=== PATIENT | male | born 1955 | race Caucasian/White ===

== ENCOUNTER 2016-05-17 20:54 | Emergency (ER) | payer SELFPAY ==
[~2016-05-17] VITALS: Ht 175.3 cm; Wt 82.0 kg
[~2016-05-17 20:54] MED LIST: CIPR0.3S RIGHT EAR; IBUP600 PO; [UNRECOGNIZED DRUG - CODE] EACH EAR
[2016-05-17 21:03] VITALS: BP 128/81; PULSE 118; RESP 18; TEMP 99.6; O2SAT 94
[2016-05-17 22:16] VITALS: BP 128/81; PULSE 118; RESP 18; TEMP 99.6; O2SAT 94
[2016-05-17 22:20] VITALS: RESP 18; O2SAT 94
[2016-05-17] MEDS ORDERED: SODIUM CHLOR 0.9% 1000 ML INJ 1,000 ML IV SCH (22:21)
--- NOTE | 2016-05-17 22:24 | PD ---
HPI Chief Complaint: Abdominal Pain Time Seen by Provider: 22:20 Travel History International Travel<30 days: No Contact w/Intl Traveler<30days: No Traveled to known affect area: No History of Present Illness HPI 60-year-old male with history of diverticulitis, presents to the ER today with abdominal pains which she states is measuring a 10 out of 10, nausea, and bloating that started today. He states that he tried to take magnesium site trach in order to have a bowel movement since he states he has not had a good bowel movement in several days, had a small amount of stool today. He denies any vomiting, fevers, or any other symptoms. He does not know any is exacerbating or alleviating factors. Modifying Factors: None Associated Signs & Symptoms: Nausea, bloating, abdominal pain Risk Factors: Diverticulitis history PFSH Past Medical History Cardiovascular Problems: Yes Coronary Artery Disease: Yes Diminished Hearing: No Immunizations Current: No Past Surgical History Coronary Artery Bypass Graft: Yes Social History Alcohol Use: No Tobacco Use: Yes (1PK) Substance Use: No Allergies-Medications (Allergen,Severity, Reaction): Coded Allergies: Peanut (Verified Allergy, Severe, Anaphylaxis, 05/17/16) Whey Hydrolysates (Verified Allergy, Severe, Anaphylaxis, 05/17/16) Reported Meds & Prescriptions Reported Meds & Active Scripts Active No Active Prescriptions or Reported Medications Review of Systems Except as stated in HPI: all other systems reviewed are Neg Physical Exam Narrative GENERAL: Elderly white male no patient who is currently in mild distress. Awake and oriented 3. SKIN: Focused skin assessment warm/dry. HEAD: Atraumatic. Normocephalic. EYES: Pupils equal and round. No scleral icterus. No injection or drainage. ENT: No nasal bleeding or discharge. Mucous membranes pink and moist. NECK: Trachea midline. No JVD. CARDIOVASCULAR: Regular rate and rhythm. No murmur appreciated. RESPIRATORY: No accessory muscle use. Clear to auscultation. Breath sounds equal bilaterally. GASTROINTESTINAL: Abdomen soft, lower and left lower quadrant tenderness without guarding or rebound, nondistended. Hepatic and splenic margins not palpable. MUSCULOSKELETAL: No obvious deformities. No clubbing. No cyanosis. No edema. NEUROLOGICAL: Awake and alert. No obvious cranial nerve deficits. Motor grossly within normal limits. Normal speech. PSYCHIATRIC: Appropriate mood and affect; insight and judgment normal. Data Data Last Documented VS Vital Signs Date Time Temp Pulse Resp B/P Pulse Ox O2 Delivery O2 Flow Rate FiO2 05/17/16 23:19 102 18 140/83 96 Nasal Cannula 2 05/17/16 22:16 99.6 Orders Complete Blood Count With Diff (05/17/16 22:17) Comprehensive Metabolic Panel (05/17/16 22:17) Lipase (05/17/16 22:17) Urinalysis - C+S If Indicated (05/17/16 22:17) Iv Access Insert/Monitor (05/17/16 22:17) Ecg Monitoring (05/17/16 22:17) Oximetry (05/17/16 22:17) Sodium Chloride 0.9% Flush (Ns Flush) (05/17/16 22:30) Ct Abd/Pel W Iv Contrast(Rout) (05/17/16 22:21) Morphine Inj (Morphine Inj) (05/17/16 22:30) Ondansetron Inj (Zofran Inj) (05/17/16 22:30) Sodium Chlor 0.9% 1000 Ml Inj (Ns 1000 M (05/17/16 22:21) Sodium Chloride 0.9% Flush (Ns Flush) (05/17/16 22:30) Iohexol 350 Inj (Omnipaque 350 Inj) (05/17/16 23:28) Labs Laboratory Tests Test 05/17/16 05/17/16 22:25 22:35 Urine Color YELLOW Urine Turbidity SLIGHT Urine pH 6.5 Urine Specific [place] 1.018 Urine Protein TRACE mg/dL Urine Glucose (UA) NEG mg/dL Urine Ketones NEG mg/dL Urine Occult Blood TRACE Urine Nitrite NEG Urine Bilirubin NEG Urine Leukocyte Esterase TRACE Urine RBC 0-3 /hpf Urine WBC 0-2 /hpf Urine Squamous Epithelial 0-5 /hpf Cells Urine Amorphous Sediment MOD Urine Mucus MOD /lpf Microscopic Urinalysis Comment CULT NOT INDICATED White Blood Count 14.0 TH/MM3 Red Blood Count 4.90 MIL/MM3 Hemoglobin 15.3 GM/DL Hematocrit 46.8 % Mean Corpuscular Volume 95.5 FL Mean Corpuscular Hemoglobin 31.2 PG Mean Corpuscular Hemoglobin 32.6 % Concent Red Cell Distribution Width 14.4 % Platelet Count 310 TH/MM3 Mean Platelet Volume 7.7 FL Neutrophils (%) (Auto) 79.4 % Lymphocytes (%) (Auto) 8.0 % Monocytes (%) (Auto) 9.0 % Eosinophils (%) (Auto) 0.4 % Basophils (%) (Auto) 3.2 % Neutrophils # (Auto) 11.1 TH/MM3 Lymphocytes # (Auto) 1.1 TH/MM3 Monocytes # (Auto) 1.3 TH/MM3 Eosinophils # (Auto) 0.1 TH/MM3 Basophils # (Auto) 0.4 TH/MM3 CBC Comment DIFF FINAL Differential Comment Sodium Level 140 MEQ/L Potassium Level 4.3 MEQ/L Chloride Level 101 MEQ/L Carbon Dioxide Level 28.1 MEQ/L Anion Gap 11 MEQ/L Blood Urea Nitrogen 14 MG/DL Creatinine 1.10 MG/DL Estimat Glomerular Filtration 68 ML/MIN Rate Random Glucose 143 MG/DL Calcium Level 9.6 MG/DL Total Bilirubin 0.6 MG/DL Aspartate Amino Transf 26 U/L (AST/SGOT) Alanine Aminotransferase 32 U/L (ALT/SGPT) Alkaline Phosphatase 155 U/L Total Protein 8.4 GM/DL Albumin 3.8 GM/DL Lipase 117 U/L [facility] Medical Decision Making Medical Screen Exam Complete: Yes Emergency Medical Condition: Yes Medical Record Reviewed: Yes Interpretation(s) Laboratory Tests Test 05/17/16 05/17/16 22:25 22:35 Urine Occult Blood TRACE (NEG) Urine Leukocyte Esterase TRACE (NEG) Urine Mucus MOD /lpf (OCC) White Blood Count 14.0 TH/MM3 (4.0-11.0) Neutrophils (%) (Auto) 79.4 % (16.0-70.0) Lymphocytes (%) (Auto) 8.0 % (9.0-44.0) Monocytes (%) (Auto) 9.0 % (0.0-8.0) Basophils (%) (Auto) 3.2 % (0.0-2.0) Neutrophils # (Auto) 11.1 TH/MM3 (1.8-7.7) Monocytes # (Auto) 1.3 TH/MM3 (0-0.9) Basophils # (Auto) 0.4 TH/MM3 (0-0.2) Estimat Glomerular Filtration 68 ML/MIN (>89) Rate Random Glucose 143 MG/DL (74-106) Alkaline Phosphatase 155 U/L (45-117) Total Protein 8.4 GM/DL (6.4-8.2) Differential Diagnosis Lower abdominal pains, nausea, bloatingdiverticulitis versus obstruction versus colitis Narrative Course Lab work shows leukocytosis and CAT scan shows acute sigmoid diverticulitis with no signs of underlying abscess. At this point, my plan would be to release the patient with antibiotic treatment symptomatically treatment for pain. Follow-up with primary care physician. Return for any worsening in symptoms as necessary. The plan has been discussed with the patient and he states understanding. Diagnosis Primary Impression: Diverticulitis Med/Other Pt SpecificInfo: Prescription(s) given Scripts Ondansetron Odt (Zofran Odt)4 Mg Tab4 Mg SL Q6HR PRN (Nausea/Vomiting) #5 TAB Ref 0 Prov:Paul Huff MD 05/17/16 Metronidazole (Flagyl)500 Mg [id number] Mg PO TID 7 Days Ref 0 Prov:Paul Huff MD 05/17/16 Ciprofloxacin (Cipro)500 Mg [id number] Mg PO BID 7 Days Ref 0 Prov:Paul Huff MD 05/17/16 Ibuprofen (Motrin Ib)200 Mg [id number] Mg PO Q6H PRN (PAIN SCALE 1 TO 10) #30 TAB Ref 0 Prov:Paul Huff MD 05/17/16 Disposition: 01 DISCHARGE HOME Condition: Stable Paul Huff MD May 17, 2016 22:24
[2016-05-17] MEDS ORDERED: MORPHINE SULFATE 4 MG/ML INJ IV PUSH ONE (22:30)
[2016-05-17] MEDS ORDERED: ONDANSETRON HCL 4 MG/2 ML VIAL IVP ONE (22:30)
[2016-05-17] MEDS ORDERED: SODIUM CHLORIDE 0.9% FLUSH 10 ML FLUSH IV FLUSH PRN ×2 (22:30)
[2016-05-17 22:46] LABS: BLOOD, URINE TRACE (NEG); GLUCOSE,URINE NEG (NEG); KETONE, URINE NEG (NEG); NITRITE,URINE NEG (NEG); PH, URINE 6.5 (5.0-8.5)
[2016-05-17 22:51] LABS: URINE COLOR YELLOW (YELLW/STRAW)
[2016-05-17 22:52] LABS: MUCUS URINE MOD /lpf (OCC); SQUAMOUS EPITHELIAL CELL URINE 0-5 /hpf (0-5)
[2016-05-17 22:52] LABS: CHLORIDE 101 MEQ/L (98-107); POTASSIUM 4.3 MEQ/L (3.5-5.1); SODIUM (NA) 140 MEQ/L (136-145)
[2016-05-17 22:53] LABS: RBC, URINE 0-3 /hpf (0-3); WBC, URINE 0-2 /hpf (0-5)
[2016-05-17 22:54] LABS: COMMENT (UR) CULT NOT INDICATED; CULTURE IF INDICATED CULT NOT INDICATED
[2016-05-17 22:56] LABS: ANION GAP 11 MEQ/L (5-15); BICARBONATE 28.1 MEQ/L (21.0-32.0); BLOOD UREA NITROGEN 14 MG/DL (7-18)
[2016-05-17 22:58] LABS: ALT (GPT) 32 U/L (12-78); AST (GOT) 26 U/L (15-37)
[2016-05-17 22:59] LABS: GLOMERULAR FILTRATION RATE 68 ML/MIN (>89)
[2016-05-17 23:00] LABS: TOTAL BILIRUBIN ADULT 0.6 MG/DL (0.2-1.0)
[2016-05-17 23:01] LABS: ALKALINE PHOSPHATASE 155 U/L (45-117)
[2016-05-17 23:08] VITALS: RESP 18; O2SAT 89
[2016-05-17 23:08] LABS: AUTOMATED NEUTROPHIL # 11.1 TH/MM3 (1.8-7.7); BASOPHIL # 0.4 TH/MM3 (0-0.2); BASOPHIL % 3.2 % (0.0-2.0); EOSINOPHIL # 0.1 TH/MM3 (0-0.4); EOSINOPHIL % 0.4 % (0.0-4.0); HEMATOCRIT 46.8 % (39.0-51.0); LYMPHOCYTE # 1.1 TH/MM3 (1.0-4.8); MEAN CELL VOLUME 95.5 FL (80.0-100.0); MEAN CORPUSCULAR HEMOGLOBIN 31.2 PG (27.0-34.0); MEAN CORPUSCULAR HGB CONC 32.6 % (32.0-36.0); NEUT % 79.4 % (16.0-70.0); PLATELET COUNT 310 TH/MM3 (150-450); RED CELL DISTRIBUTION WIDTH 14.4 % (11.6-17.2)
[2016-05-17 23:09] LABS: HEMO FLAGS DIFF FINAL
[2016-05-17 23:19] VITALS: BP 140/83; PULSE 102; RESP 18; O2SAT 96
[2016-05-17] MEDS ORDERED: IOHEXOL 350 MG/ML 10 ML VIAL (for RAD DIAG) IV ONE (23:28)
--- NOTE | 2016-05-17 23:45 | RADHPO ---
EXAM DATE/TIME: 05/17/2016 23:19 [facility] COMPARISON: No previous studies available for comparison. INDICATIONS : Diffuse abdominal pain with nausea. IV CONTRAST: 96 cc Omnipaque 350 (iohexol) IV ORAL CONTRAST: No oral contrast ingested. RADIATION DOSE: 14.96 CTDIvol (mGy) MEDICAL HISTORY : Diverticulitis. Coronary artery disease. SURGICAL HISTORY : CABG ENCOUNTER: Initial ACUITY: 1 day PAIN SCALE: 10/10 LOCATION: Abdomen. TECHNIQUE: Volumetric scanning of the abdomen and pelvis was performed. Using automated exposure control and ad justment of the mA and/or kV according to patient size, radiation dose was kept as low as reasonably achievable to obtain optimal diagnostic quality images. FINDINGS: LOWER LUNGS: The visualized lower lungs are clear. LIVER: Homogeneous density without lesion. There is no dilation of the biliary tree. No calcified gallston es. SPLEEN: Normal size without lesion. PANCREAS: Within normal limits. KIDNEYS: Normal in size and shape. There is no mass, stone or hydronephrosis. ADRENAL GLANDS: Within normal limits. VASCULAR: There is no aortic aneurysm. BOWEL/MESENTERY: There is an acute inflammatory process involving the sigmoid colon. Multiple diverticuli are seen wit hin this region. No perforation, abscess, or obstruction observed. The remaining bowel structures are unremarkable. No free air or free fluid. ABDOMINAL WALL: Within normal limits. RETROPERITONEUM: There is no lymphadenopathy. BLADDER: No wall thickening or mass. REPRODUCTIVE: Within normal limits. INGUINAL: There is no lymphadenopathy or hernia. MUSCULOSKELETAL: Within normal limits for patient age. CONCLUSION: 1. Acute sigmoid diverticulitis. No obstruction, abscess, or perforation. Leonid Gavin Jr., MD on May 17, 2016 at 23:41 Board Certified Radiologist. This report was verified electronically.
[2016-05-17] MEDS ORDERED: MOTR200T4 PO (23:50)
[2016-05-17] MEDS ORDERED: METR-1 PO (23:50)
[2016-05-17] MEDS ORDERED: ZOFR4TAB3 SL (23:50)
[2016-05-17] MEDS ORDERED: CIPR-9 PO (23:50)
[2016-05-18 00:29] VITALS: BP 160/85
== END 2016-05-18 00:31 | disposition home or self-care (01) ==
LOC: PHED 20:54
DX: K57.32 Diverticulitis of large intestine without perforation or abscess without bleeding (principal); D72.829 Elevated white blood cell count, unspecified; R11.0 Nausea; F17.200 Nicotine dependence, unspecified, uncomplicated; Z86.79 Personal history of other diseases of the circulatory system
CPT/HCPCS: 74177; 80053; 81001; 83690; 85025; 96374; 96375; 99284; J2270; J2405; J7030; Q9967

== ENCOUNTER 2016-11-24 01:02 | Inpatient (IN) | payer SELFPAY ==
[~2016-11-24] VITALS: Ht 175.3 cm; Wt 82.4 kg
[2016-11-24] VITALS (10 sets, daily range): BP systolic 120–187; BP diastolic 75–101; PULSE 94–118; RESP 16–19; TEMP 97.8–99.5; O2SAT 92–99
[~2016-11-24 01:02] MED LIST changes: +CIPR-9 PO; -CIPR0.3S RIGHT EAR; -IBUP600 PO; +METR-1 PO; +MOTR200T4 PO; +ZOFR4TAB3 SL; -[UNRECOGNIZED DRUG - CODE] EACH EAR
[2016-11-24] MEDS ORDERED: SODIUM CHLOR 0.9% 1000 ML INJ 1,000 ML IV SCH (01:22)
--- NOTE | 2016-11-24 01:26 | PD ---
HPI . Diverticulitis pain Chief Complaint: GI Complaint Time Seen by Provider: 01:18 Travel History International Travel<30 days: No Contact w/Intl Traveler<30days: No Traveled to known affect area: No History of Present Illness HPI The patient is a 61-year-old male with a history of diverticulitis that states he has the same pain as his previous diverticulitis. His pain is in midline lower quadrant and left lower quadrant. He denies any fever. He does have nausea but no vomiting. He does have occasional diarrhea but this subsided. He denies any blood in the stool. PFSH Past Medical History Cardiovascular Problems: Yes Coronary Artery Disease: Yes Diminished Hearing: No Immunizations Current: Yes Past Surgical History Coronary Artery Bypass Graft: Yes Social History Alcohol Use: No Tobacco Use: Yes (1PK) Substance Use: No Allergies-Medications (Allergen,Severity, Reaction): Coded Allergies: ipratropium (Unverified Allergy, Severe, Anaphylaxis, 11/24/16) protein hydrolysate (Unverified Allergy, Severe, Anaphylaxis, 11/24/16) Reported Meds & Prescriptions Reported Meds & Active Scripts Active Review of Systems Except as stated in HPI: all other systems reviewed are Neg Physical Exam Narrative GENERAL: The patient is alert, oriented 3 in moderate apparent distress with his abdominal pain. His vital signs show blood pressure 187/101 but are otherwise normal. SKIN: Focused skin assessment warm/dry. HEAD: Atraumatic. Normocephalic. EYES: Pupils equal and round. No scleral icterus. No injection or drainage. ENT: No nasal bleeding or discharge. Mucous membranes pink and moist. NECK: Trachea midline. No JVD. CARDIOVASCULAR: Regular rate and rhythm. No murmur appreciated. RESPIRATORY: No accessory muscle use. Clear to auscultation. Breath sounds equal bilaterally. GASTROINTESTINAL: Abdomen soft, with tenderness to direct palpation in the left lower quadrant, nondistended. Hepatic and splenic margins not palpable. No guarding or rebound is present. MUSCULOSKELETAL: No obvious deformities. No clubbing. No cyanosis. No edema. NEUROLOGICAL: Awake and alert. No obvious cranial nerve deficits. Motor grossly within normal limits. Normal speech. PSYCHIATRIC: Appropriate mood and affect; insight and judgment normal. Data Data Last Documented VS Vital Signs Date Time Temp Pulse Resp B/P (MAP) Pulse Ox O2 Delivery O2 Flow Rate FiO2 11/24/16 03:04 101 16 171/93 (119) 92 Nasal Cannula 3.00 11/24/16 01:06 97.8 Orders Orders Complete Blood Count With Diff (11/24/16:) Comprehensive Metabolic Panel (11/24/16) Lipase (11/24/16:) Urinalysis - C+S If Indicated (11/24/16:) Ct Abd/Pel W Iv Contrast(Rout) (11/24/16) Iv Access Insert/Monitor (11/24/16) Ecg Monitoring (11/24/16) Oximetry (11/24/16:22) Morphine Inj (Morphine Inj) (11/24/16 01:30) Ondansetron Inj (Zofran Inj) (11/24/16:30) Sodium Chlor 0.9% 1000 Ml Inj (Ns 1000 M (11/24/16:22) Sodium Chloride 0.9% Flush (Ns Flush) (11/24/16:30) Electrocardiogram (11/24/16:) Iohexol 350 Inj (Omnipaque 350 Inj) (11/24/16 02:16) Morphine Inj (Morphine Inj) (11/24/16 02:45) Labs Laboratory Tests Test 11/24/16 01:27 11/24/16 01:50 White Blood Count 10.7 TH/MM3 Red Blood Count 4.79 MIL/MM3 Hemoglobin 15.3 GM/DL Hematocrit 44.7 % Mean Corpuscular Volume 93.2 FL Mean Corpuscular Hemoglobin 32.0 PG Mean Corpuscular Hemoglobin Concent 34.3 % Red Cell Distribution Width 13.5 % Platelet Count 287 TH/MM3 Mean Platelet Volume 7.6 FL Neutrophils (%) (Auto) 69.8 % Lymphocytes (%) (Auto) 16.3 % Monocytes (%) (Auto) 9.5 % Eosinophils (%) (Auto) 3.1 % Basophils (%) (Auto) 1.3 % Neutrophils # (Auto) 7.6 TH/MM3 Lymphocytes # (Auto) 1.7 TH/MM3 Monocytes # (Auto) 1.0 TH/MM3 Eosinophils # (Auto) 0.3 TH/MM3 Basophils # (Auto) 0.1 TH/MM3 CBC Comment AUTO DIFF Differential Comment AUTO DIFF CONFIRMED Platelet Estimate NORMAL Platelet Morphology Comment NORMAL Red Cell Morphology Comment NORMAL Blood Urea Nitrogen 15 MG/DL Creatinine 1.10 MG/DL Random Glucose 129 MG/DL Total Protein 8.1 GM/DL Albumin 3.5 GM/DL Calcium Level 8.8 MG/DL Alkaline Phosphatase 165 U/L Aspartate Amino Transf (AST/SGOT) 16 U/L Alanine Aminotransferase (ALT/SGPT) 25 U/L Total Bilirubin 0.3 MG/DL Sodium Level 134 MEQ/L Potassium Level 4.2 MEQ/L Chloride Level 99 MEQ/L Carbon Dioxide Level 28.8 MEQ/L Anion Gap 6 MEQ/L Estimat Glomerular Filtration Rate 68 ML/MIN Lipase 180 U/L Urine Color YELLOW Urine Turbidity CLEAR Urine pH 6.5 Urine Specific [place] 1.018 Urine Protein 30 mg/dL Urine Glucose (UA) NEG mg/dL Urine Ketones NEG mg/dL Urine Occult Blood MOD Urine Nitrite NEG Urine Bilirubin NEG Urine Leukocyte Esterase NEG Urine RBC 10-14 /hpf Urine WBC 0-2 /hpf Urine Squamous Epithelial Cells 0-5 /hpf Urine Amorphous Sediment SMALL Urine Mucus FEW /lpf Microscopic Urinalysis Comment CULT NOT INDICATED MDM Medical Decision Making Medical Screen Exam Complete: Yes Emergency Medical Condition: Yes Medical Record Reviewed: Yes Interpretation(s) The CBC is normal. The EKG shows no acute ST elevation or depression and is a sinus rhythm of 88. The complete metabolic profile shows a sodium of 134, glucose of 129, alkaline phosphatase of 165 and GFR of 68 but is otherwise unremarkable. The lipase is normal. The urine shows moderate occult blood, 10- 14 red cells but is otherwise normal and culture is not indicated. The CT scan shows prominent diverticula inflammation involving the sigmoid colon with multiple small collections of extraluminal gas, the largest of which extends inferiorly to contact the dome of the bladder where a concomitant small fluid collection is present with significant bladder wall thickening. There is some air along the left lateral wall of the bladder. Concentric colonic thickening continues into the rectum and extends proximally through much of the descending colon. There is no evidence of free no pneumoperitoneum and no evidence of bowel obstruction. Differential Diagnosis Diverticulitis-uncomplicated, diverticulitis with perforation, diverticulitis with abscess, colitis, gastroenteritis, electrolyte disorder, dehydration, urinary tract infection, anemia Narrative Course The patient has evidence of perforated diverticulitis with abscess formation. Some of this has extended to the lateral wall of the bladder and has caused bladder thickening and evidence of concomitant emphysematous cystitis. The patient is very symptomatic and required 2 doses of morphine. Plan: He'll be admitted to the [facility] service, discussed the patient with Dr. Crouch. Physician Communication Physician Communication I discussed the patient with Dr. Crouch, the patient will be admitted to her. Diagnosis Primary Impression: Diverticulitis of small intestine with complication Additional Impression: Diverticulitis large intestine w/o perforation or abscess w/o bleeding Admitting Information Admitting Physician Requests: Admit Sonny Cullen MD Nov 24, 2016 01:26
[2016-11-24] MEDS ORDERED: ONDANSETRON HCL 4 MG/2 ML VIAL IVP ONE (01:30)
[2016-11-24] MEDS ORDERED: SODIUM CHLORIDE 0.9% FLUSH 10 ML FLUSH IV FLUSH PRN ×2 (01:30→03:15)
[2016-11-24] MEDS ORDERED: MORPHINE SULFATE 4 MG/ML INJ IV PUSH ONE ×2 (01:30→02:45)
[2016-11-24 01:45] LABS: AUTOMATED NEUTROPHIL # 7.6 TH/MM3 (1.8-7.7); BASOPHIL # 0.1 TH/MM3 (0-0.2); BASOPHIL % 1.3 % (0.0-2.0); CHLORIDE 99 MEQ/L (98-107); EOSINOPHIL # 0.3 TH/MM3 (0-0.4); EOSINOPHIL % 3.1 % (0.0-4.0); HEMATOCRIT 44.7 % (39.0-51.0); LYMPH % 16.3 % (9.0-44.0); LYMPHOCYTE # 1.7 TH/MM3 (1.0-4.8); MEAN CELL VOLUME 93.2 FL (80.0-100.0); MEAN CORPUSCULAR HGB CONC 34.3 % (32.0-36.0); MONO % 9.5 % (0.0-8.0); NEUT % 69.8 % (16.0-70.0); PLATELET COUNT 287 TH/MM3 (150-450); POTASSIUM 4.2 MEQ/L (3.5-5.1); RED BLOOD COUNT 4.79 MIL/MM3 (4.50-5.90); RED CELL DISTRIBUTION WIDTH 13.5 % (11.6-17.2); SODIUM (NA) 134 MEQ/L (136-145); WHITE BLOOD COUNT 10.7 TH/MM3 (4.0-11.0)
[2016-11-24 01:49] LABS: ANION GAP 6 MEQ/L (5-15); BICARBONATE 28.8 MEQ/L (21.0-32.0); BLOOD UREA NITROGEN 15 MG/DL (7-18)
[2016-11-24 01:50] LABS: HEMO FLAGS AUTO DIFF
[2016-11-24 01:52] LABS: ALT (GPT) 25 U/L (12-78); AST (GOT) 16 U/L (15-37); GLOMERULAR FILTRATION RATE 68 ML/MIN (>89)
[2016-11-24 01:53] LABS: TOTAL BILIRUBIN ADULT 0.3 MG/DL (0.2-1.0)
[2016-11-24 01:55] LABS: ALKALINE PHOSPHATASE 165 U/L (45-117)
[2016-11-24 01:59] LABS: BLOOD, URINE MOD (NEG); GLUCOSE,URINE NEG (NEG); KETONE, URINE NEG (NEG); NITRITE,URINE NEG (NEG); PH, URINE 6.5 (5.0-8.5)
[2016-11-24 02:12] LABS: URINE COLOR YELLOW (YELLW/STRAW)
[2016-11-24 02:13] LABS: COMMENT (UR) CULT NOT INDICATED; CULTURE IF INDICATED CULT NOT INDICATED; MUCUS URINE FEW /lpf (OCC); SQUAMOUS EPITHELIAL CELL URINE 0-5 /hpf (0-5); WBC, URINE 0-2 /hpf (0-5)
[2016-11-24] MEDS ORDERED: IOHEXOL 350 MG/ML 10 ML VIAL (for RAD DIAG) IVCONTRAST ONE (02:16)
[2016-11-24 02:21] LABS: PLATELET ESTIMATE SMEAR NORMAL (NORMAL); PLATELET MORPHOLOGY NORMAL (NORMAL); SCAN/DIFF AUTO DIFF CONFIRMED
--- NOTE | 2016-11-24 02:54 | RADRPT ---
EXAM DATE/TIME: 11/24/2016 02:09 [facility] COMPARISON: CT ABDOMEN & PELVIS W CONTRAST, May 17, 2016, 23:19. INDICATIONS : Left lower quadrant abdominal pain. IV CONTRAST: 100 cc Omnipaque 350 (iohexol) IV ORAL CONTRAST: No oral contrast ingested. RADIATION DOSE: 13.94 CTDIvol (mGy) MEDICAL HISTORY : Cardiovascular disease. SURGICAL HISTORY : CABG Appendectomy. ENCOUNTER: Initial ACUITY: 3 days PAIN SCALE: 7/10 LOCATION: Left lower quadrant TECHNIQUE: Volumetric scanning of the abdomen and pelvis was performed. Using automated exposure control and ad justment of the mA and/or kV according to patient size, radiation dose was kept as low as reasonably achievable to obtain optimal diagnostic quality images. DICOM format image data is available electro nically for review and comparison. FINDINGS: LOWER LUNGS: The visualized lower lungs are clear. LIVER: Homogeneous density without lesion. There is no dilation of the biliary tree. No calcified gallston es. SPLEEN: Normal size without lesion. PANCREAS: Within normal limits. KIDNEYS: Normal in size and shape. There is no mass, stone or hydronephrosis. ADRENAL GLANDS: Within normal limits. VASCULAR: There is no aortic aneurysm. BOWEL/MESENTERY: There is prominent diverticular inflammation involving the sigmoid colon. There are are multiple smal l collections of extraluminal gas, largest of which extends inferiorly to contact the dome of the dann dder where a concomitant small fluid collection is present associated with significant bladder wall t hickening. There is some air along the left lateral wall of the bladder. Concentric colonic thickenin g continues into the rectum and extends proximally through much of the descending colon. There is no evidence of free pneumoperitoneum. There is no evidence of bowel obstruction. ABDOMINAL WALL: Within normal limits. RETROPERITONEUM: There is no lymphadenopathy. BLADDER: See above REPRODUCTIVE: Dense prostatic calcifications. INGUINAL: There is no lymphadenopathy or hernia. MUSCULOSKELETAL: Within normal limits for patient age. CONCLUSION: Prominent sigmoid diverticulitis with locally contained perforation, multiple small collections of ex traluminal air and concomitant emphysematous cystitis Venancio Turner MD on November 24, 2016 at 2:44 Board Certified Radiologist. This report was verified electronically.
[2016-11-24] MEDS ORDERED: metroNIDAZOLE 500 MG INJ 100 ML IV ONE (03:15)
[2016-11-24] MEDS ORDERED: NALOXONE HCL 0.4 MG/ML AMP IV PUSH PRN (03:15)
[2016-11-24] MEDS ORDERED: LEVOFLOXACIN 750 MG PREMIX INJ 150 ML IV ONE (03:15)
[2016-11-24] MEDS ORDERED: ONDANSETRON HCL 4 MG/2 ML VIAL IVP PRN (03:15)
[2016-11-24] MEDS: PIPERACIL-TAZO 4.5 GM PREMIX 100 ML IV SCH ×4 (03:28→22:28)
[2016-11-24] MEDS: SODIUM CHLOR 0.9% 1000 ML INJ 1,000 ML IV SCH ×2 (03:29→16:45)
[2016-11-24] MEDS: MORPHINE SULFATE 2 MG/ML INJ IV PUSH PRN ×3 (04:08→11:59)
[2016-11-24 07:02] LABS: CHLORIDE 101 MEQ/L (98-107); POTASSIUM 4.3 MEQ/L (3.5-5.1); SODIUM (NA) 133 MEQ/L (136-145)
[2016-11-24 07:06] LABS: ANION GAP 8 MEQ/L (5-15); BICARBONATE 23.7 MEQ/L (21.0-32.0); BLOOD UREA NITROGEN 12 MG/DL (7-18)
[2016-11-24 07:09] LABS: ALT (GPT) 22 U/L (12-78); AST (GOT) 18 U/L (15-37); GLOMERULAR FILTRATION RATE 76 ML/MIN (>89)
[2016-11-24 07:11] LABS: TOTAL BILIRUBIN ADULT 0.4 MG/DL (0.2-1.0)
[2016-11-24 07:12] LABS: ALKALINE PHOSPHATASE 137 U/L (45-117)
[2016-11-24 07:23] LABS: HEMATOCRIT 46.1 % (39.0-51.0); MEAN CELL VOLUME 93.6 FL (80.0-100.0); MEAN CORPUSCULAR HEMOGLOBIN 31.4 PG (27.0-34.0); MEAN CORPUSCULAR HGB CONC 33.6 % (32.0-36.0); PLATELET COUNT 296 TH/MM3 (150-450); RED BLOOD COUNT 4.92 MIL/MM3 (4.50-5.90); RED CELL DISTRIBUTION WIDTH 13.6 % (11.6-17.2); WHITE BLOOD COUNT 13.1 TH/MM3 (4.0-11.0)
[2016-11-24 07:24] LABS: HEMO FLAGS AUTO DIFF
[2016-11-24 08:03] LABS: NEUTROPHIL # MANUAL DIFF 9.6 TH/MM3 (1.8-7.7); POLYS (SEG NEUTROPHILS) 73 % (16-70); WBC DIFF SAMPLE 100
[2016-11-24 08:04] LABS: PLATELET ESTIMATE SMEAR NORMAL (NORMAL); PLATELET MORPHOLOGY NORMAL (NORMAL); SCAN/DIFF FINAL DIFF MANUAL
[2016-11-24] MEDS: SODIUM CHLORIDE 0.9% FLUSH 10 ML FLUSH IV FLUSH SCH ×2 (08:14→22:30)
--- NOTE | 2016-11-24 13:20 | EKG ---
Date Performed: 11/24/2016 Time Performed: 01:32:56 PTAGE: 61 years EKG: Sinus rhythm POSSIBLE LEFT ATRIAL ENLARGEMENT BORDERLINE ECG NO PREVIOUS TRACING DOCTOR: Enrico Ge Interpretating Date/Time 11/24/2016 13:17:39
--- NOTE | 2016-11-24 14:02 | HHI.HP ---
[facility] No Primary Care Physician Admission Diagnosis diverticulitis with abscess formation Diagnoses: (1) Diverticulitis of small intestine with complication Diagnosis: Principal (2) Diverticulitis large intestine w/o perforation or abscess w/o bleeding Diagnosis: Principal (3) Diverticulitis Diagnosis: Principal Travel History International Travel<30 Days: No Contact w/Intl Traveler <30 Da: No Traveled to Known Affected Are: No Sepsis Criteria SIRS Criteria (2 or more): Heart rate over 90, WBC > 50862, < 4000 or > 10% bands Sepsis Criteria (SIRS+source): Infect source susp/known History of Present Illness Mr. Crandall is a 61-year-old male. He's had a graduating left lower abdominal pain with symptoms of decreased appetite. She's had diverticulitis in the past. He reports he has been hospitalized for diverticulitis in the past. Imaging of the abdomen at time of admission reveals severe diverticulitis with evidence of abscess. 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 Urology and surgery have been consulted by the overnight admitting physician. Patient's primary complaint is pain. Currently he is being treated with IV morphine and this is not relieving much of this pain. At baseline he has coronary artery disease hyperlipidemia and a history of CABG. No other reported past medical history. He meets sepsis criteria when I see him today. No other complaints today. Review of Systems Constitutional: DENIES: Diaphoretic episodes, Fatigue, Fever, Weight gain Eyes: DENIES: Blurred vision, Diplopia, Eye inflammation, Eye pain Ears, nose, mouth, throat: DENIES: Tinnitus, Hearing loss, Vertigo, Nasal discharge Respiratory: DENIES: Apneas, Cough, Wheezing, Shortness of breath Cardiovascular: DENIES: Chest pain, Palpitations, Syncope Gastrointestinal: COMPLAINS OF: Abdominal pain, DENIES: Black stools, Bloody stools Musculoskeletal: DENIES: Joint pain, Muscle aches, Stiffness Integumentary: DENIES: Abnormal pigmentation, Nail changes, Pruritus, Rash Hematologic/lymphatic: DENIES: Bruising, Lymphadenopathy Immunologic/allergic: DENIES: Eczema, Urticaria Neurologic: DENIES: Abnormal gait, Headache, Paresthesias Psychiatric: DENIES: Anxiety, Confusion, Hallucinations Past Family Social History Past Medical History CAD Hyperlipidemia Diverticulitis History Past Surgical History CABG Reported Medications Reported Meds & Active Scripts Active Allergies: Coded Allergies: ipratropium (Unverified Allergy, Severe, Anaphylaxis, 11/24/16) protein hydrolysate (Unverified Allergy, Severe, Anaphylaxis, 11/24/16) Active Ordered Medications Administered Medications Medications (Trade) Dose Ordered Sig/Dave Route PRN Reason Start Time Stop Time Status Last Admin Dose Admin Sodium Chloride 1,000 ml @ 100 mls/hr Q10H IV 11/24/16 03:04 11/24/16 03:29 Sodium Chloride (NS Flush) 2 ml BID IV FLUSH 11/24/16 09:00 11/24/16 08:14 Ondansetron HCl (Zofran Inj) 4 mg Q6H PRN IVP NAUSEA OR VOMITING 11/24/16 03:15 11/24/16 11:59 Piperacillin Sod/ Tazobactam Sod 100 ml @ 200 mls/hr Q6H IV 11/24/16 03:00 11/24/16 10:23 Family History Hyperlipidemia, CAD, DM in mother/father DM in Maternal Grandmother Social History Smoking 1ppd No alcohol abuse No illicit drug abuse Physical Exam Vital Signs Vital Signs Date Time Temp Pulse Resp B/P (MAP) Pulse Ox O2 Delivery O2 Flow Rate FiO2 11/24/16 12:00 98.8 118 19 150/90 (110) 94 11/24/16 08:17 111 16 164/94 (117) 96 11/24/16 07:15 16 11/24/16 07:15 105 16 155/92 (113) 99 Room Air 11/24/16 04:40 18 11/24/16 04:13 103 16 174/91 (118) 94 Nasal Cannula 3.00 11/24/16 03:04 101 16 171/93 (119) 92 Nasal Cannula 3.00 11/24/16 03:03 16 11/24/16 02:11 18 11/24/16 01:54 18 97 Room Air 11/24/16 01:06 97.8 94 16 187/101 (129) 97 11/24/16 01:02 97.8 94 16 187/101 (599) 97 Physical Exam GENERAL: NAD, A&Ox3 HEAD: Normocephalic. NECK: Supple, trachea midline. No lymphadenopathy. EYES: No scleral icterus. No injection or drainage. CARDIOVASCULAR: Regular rate and rhythm without murmurs, gallops, or rubs. RESPIRATORY: Breath sounds equal bilaterally. No accessory muscle use. GASTROINTESTINAL: Abdomen soft, nondistended. Tenderness with palpation, no guarding. MUSCULOSKELETAL: No cyanosis, or edema. SKIN: Warm and dry. NEURO: No focal neurological deficitis. Laboratory Laboratory Tests Test 11/24/16 01:27 11/24/16 01:50 11/24/16 06:00 11/24/16 07:11 White Blood Count 10.7 13.1 Red Blood Count 4.79 4.92 Hemoglobin 15.3 15.5 Hematocrit 44.7 46.1 Mean Corpuscular Volume 93.2 93.6 Mean Corpuscular Hemoglobin 32.0 31.4 Mean Corpuscular Hemoglobin Concent 34.3 33.6 Red Cell Distribution Width 13.5 13.6 Platelet Count 287 296 Mean Platelet Volume 7.6 7.5 Neutrophils (%) (Auto) 69.8 Lymphocytes (%) (Auto) 16.3 Monocytes (%) (Auto) 9.5 Eosinophils (%) (Auto) 3.1 Basophils (%) (Auto) 1.3 Neutrophils # (Auto) 7.6 Lymphocytes # (Auto) 1.7 Monocytes # (Auto) 1.0 Eosinophils # (Auto) 0.3 Basophils # (Auto) 0.1 CBC Comment AUTO DIFF AUTO DIFF Differential Comment AUTO DIFF CONFIRMED FINAL DIFF MANUAL Platelet Estimate NORMAL NORMAL Platelet Morphology Comment NORMAL NORMAL Red Cell Morphology Comment NORMAL Blood Urea Nitrogen 15 12 Creatinine 1.10 1.00 Random Glucose 129 151 Total Protein 8.1 7.4 Albumin 3.5 3.2 Calcium Level 8.8 8.3 Alkaline Phosphatase 165 137 Aspartate Amino Transf (AST/SGOT) 16 18 Alanine Aminotransferase (ALT/SGPT) 25 22 Total Bilirubin 0.3 0.4 Sodium Level 134 133 Potassium Level 4.2 4.3 Chloride Level 99 101 Carbon Dioxide Level 28.8 23.7 Anion Gap 6 8 Estimat Glomerular Filtration Rate 68 76 Lipase 180 Urine Color YELLOW Urine Turbidity CLEAR Urine pH 6.5 Urine Specific [place] 1.018 Urine Protein 30 Urine Glucose (UA) NEG Urine Ketones NEG Urine Occult Blood MOD Urine Nitrite NEG Urine Bilirubin NEG Urine Leukocyte Esterase NEG Urine RBC 10-14 Urine WBC 0-2 Urine Squamous Epithelial Cells 0-5 Urine Amorphous Sediment SMALL Urine Mucus FEW Microscopic Urinalysis Comment CULT NOT INDICATED Differential Total Cells Counted 100 Neutrophils % (Manual) 73 Lymphocytes % 20 Monocytes % 7 Neutrophils # (Manual) 9.6 Result Diagram: 11/24/16 0711 11/24/16 0600 Septic Shock Reassessment Heart: Regular rate and rhythm Lungs: Clear Skin: Warm Peripheral Pulses: Bounding Right Radial Bounding Left Radial Bounding Right Posterior Tibial Bounding Left Posterior Tibial Capillary Refill: Brisk Caprini VTE Risk Assessment Caprini VTE Risk Assessment: Mod/High Risk (score >= 2) VTE Pharm Contraindication: High risk for bleeding Caprini Risk Assessment Model Point Value = 1 Point Value = 2 Point Value = 3 Point Value = 5 Age 41-60 Minor surgery BMI > 25 kg/m2 Swollen legs Varicose veins or History of unexplained or recurrent spontaneous Oral contraceptives or hormone replacement Sepsis (< 1 month) Serious lung disease, including pneumonia (< 1 month) Abnormal pulmonary function Acute myocardial infarction Congestive heart failure (< 1 month) History of inflammatory bowel disease Medical patient at bed rest Age 61-74 Arthroscopic surgery Major open surgery (> 45 min) Laparoscopic surgery (> 45 min) Malignancy Confined to bed (> 72 hours) Immobilizing plaster cast Central venous access Age >= 75 History of VTE Family history of VTE Factor V Leiden Prothrombin [id number] Lupus anticoagulant Anticardiolipin antibodies Elevated serum homocysteine Heparin-induced thrombocytopenia Other congenital or acquired thrombophilia Stroke (< 1 month) Elective arthroplasty Hip, pelvis, or leg fracture Acute spinal cord injury (< 1 month) Prophylaxis Regimen Total Risk Factor Score Risk Level Prophylaxis Regimen 0-1 Low Early ambulation 2 Moderate Order ONE of the following: *Sequential Compression Device (SCD) *Heparin 5000 units SQ BID 3-4 Higher Order ONE of the following medications: *Heparin 5000 units SQ TID *Enoxaparin/Lovenox 40 mg SQ daily (WT < 150 kg, CrCl > 30 mL/min) *Enoxaparin/Lovenox 30 mg SQ daily (WT < 150 kg, CrCl > 10-29 mL/min) *Enoxaparin/Lovenox 30 mg SQ BID (WT < 150 kg, CrCl > 30 mL/min) AND/OR *Sequential Compression Device (SCD) 5 or more Highest Order ONE of the following medications: *Heparin 5000 units SQ TID (Preferred with Epidurals) *Enoxaparin/Lovenox 40 mg SQ daily (WT < 150 kg, CrCl > 30 mL/min) *Enoxaparin/Lovenox 30 mg SQ daily (WT < 150 kg, CrCl > 10-29 mL/min) *Enoxaparin/Lovenox 30 mg SQ BID (WT < 150 kg, CrCl > 30 mL/min) AND *Sequential Compression Device (SCD) Assessment and Plan Problem List: (1) Diverticulitis large intestine w/o perforation or abscess w/o bleeding ICD Code: K57.32 - Diverticulitis of large intestine without perforation or abscess without bleeding Status: Acute (2) Diverticulitis of small intestine with complication ICD Code: K57.12 - Diverticulitis of small intestine without perforation or abscess without bleeding Status: Acute (3) Diverticulitis ICD Code: K57.92 - Diverticulitis of intestine, part unspecified, without perforation or abscess without bleeding Status: Acute Assessment and Plan Assessment and plan 61-year-old male admitted secondary to diverticulitis with abscess and possible bladder fistula Sepsis Follow clinically Treatment infection IV hydration Acute diverticulitis Diverticular abscess Possible bladder fistula Continue as needed pain treatments Clear liquid diet Surgery consulted Urology consulted Continue Zosyn IV hydration CAD History of CABG No chest pain Follow clinically Hyperlipidemia Check fasting lipid profile in a.m. Presently on dietary treatments DVT prophylaxis High risk of bleed SCDs Physician Certification 2 Midnight Certification Type: Admission for Inpatient Services Order for Inpatient Services The services are ordered in accordance with Medicare regulations or non- Medicare payer requirements, as applicable. In the case of services not specified as inpatient-only, they are appropriately provided as inpatient services in accordance with the 2-midnight benchmark. Estimated LOS (days): 4 days is the estimated time the patient will need to remain in the hospital, assuming treatment plan goals are met and no additional complications. Post-Hospital Plan: Abdirahman Espino MD Nov 24, 2016 14:02
[2016-11-24] MEDS: HYDROmorphone HCL PF 1 MG/ML VIAL IV PUSH PRN ×2 (15:33→19:15)
--- NOTE | 2016-11-24 17:01 | PD.CONS ---
cc: Gavin Vela MD; Paul Proctor MD HPI Service CONSULTATION NOTE FOR SURGICAL ATTENDING, DR. GAVIN VELA General Surgery Consult Requested By Dr. Crouch Reason for Consult Acute diverticulitis Primary Care Physician No Primary Care Physician History of Present Illness This is a 61-year-old male with a past medical history diverticulitis, coronary artery disease, and hypercholesterolemia. The patient comes in complaining of left lower quadrant abdominal pain 3 days. He has associated decreased appetite and nausea. He has not had any emesis. The patient has 2 similar episodes of the same type symptoms both with a diagnosis of sigmoid diverticulitis. The first episode he was treated in the [facility] emergency department and discharged. Another episode happened in [place] and again was treated with antibiotics and discharged home. This is the third episode of acute sigmoid diverticulitis. The CT abdomen and pelvis shows prominent sigmoid diverticulitis with locally contained perforation and small collection of extraluminal air. The patient has an elevated white blood cell count. A General Surgery consultation has been requested for evaluation of acute diverticulitis. Review of Systems Constitutional: COMPLAINS OF: Fatigue, Change in appetite, DENIES: Chills Endocrine: DENIES: Polydipsia, Polyuria, Polyphagia Eyes: DENIES: Diplopia Ears, nose, mouth, throat: DENIES: Hearing loss Respiratory: DENIES: Cough Cardiovascular: DENIES: Palpitations Gastrointestinal: COMPLAINS OF: Abdominal pain, Nausea, DENIES: Vomiting Genitourinary: DENIES: Urgency Musculoskeletal: DENIES: Muscle aches, Joint Swelling Integumentary: DENIES: Abnormal pigmentation Hematologic/lymphatic: DENIES: Bruising Immunologic/allergic: DENIES: Eczema Neurologic: DENIES: Headache, Localized weakness Psychiatric: DENIES: Mood changes, Depression, Hallucinations Past Family Social History Past Medical History Acute diverticulitis Coronary artery disease Past Surgical History CABG---10 years ago Reported Medications None Allergies: Coded Allergies: ipratropium (Unverified Allergy, Severe, Anaphylaxis, 11/24/16) protein hydrolysate (Unverified Allergy, Severe, Anaphylaxis, 11/24/16) Active Ordered Medications Current Medications Medications (Trade) Dose Ordered Sig/Dave Route Start Time Stop Time Status Last Admin Sodium Chloride 1,000 ml @ 100 mls/hr Q10H IV 11/24/16 03:04 11/24/16 16:45 (NS Flush) 2 ml UNSCH PRN IV FLUSH 11/24/16 03:15 (NS Flush) 2 ml BID IV FLUSH 11/24/16 09:00 11/24/16 08:14 (Zofran Inj) 4 mg Q6H PRN IVP 11/24/16 03:15 11/24/16 11:59 (Narcan Inj) 0.4 mg UNSCH PRN IV PUSH 11/24/16 03:15 Piperacillin Sod/ Tazobactam Sod 100 ml @ 200 mls/hr Q6H IV 11/24/16 03:00 11/24/16 16:45 (Dilaudid Pf Inj) 0.5 mg Q4H PRN IV PUSH 11/24/16 12:30 (Dilaudid Pf Inj) 1 mg Q4H PRN IV PUSH 11/24/16 12:30 11/24/16 15:33 Family History Noncontributory Social History Positive tobacco use--- approximately 1 pack per day Denies EtOH use Denies illicit drug use Physical Exam Vital Signs Vital Signs Date Time Temp Pulse Resp B/P (MAP) Pulse Ox O2 Delivery O2 Flow Rate FiO2 11/24/16 16:00 99.0 101 19 129/84 (99) 92 11/24/16 12:00 98.8 118 19 150/90 (110) 94 11/24/16 08:17 111 16 164/94 (117) 96 11/24/16 07:15 16 11/24/16 07:15 105 16 155/92 (113) 99 Room Air 11/24/16 04:40 18 11/24/16 04:13 103 16 174/91 (118) 94 Nasal Cannula 3.00 11/24/16 03:04 101 16 171/93 (119) 92 Nasal Cannula 3.00 11/24/16 03:03 16 11/24/16 02:11 18 11/24/16 01:54 18 97 Room Air 11/24/16 01:06 97.8 94 16 187/101 (129) 97 11/24/16 01:02 97.8 94 16 187/101 (129) 97 Physical Exam GENERAL: Very pleasant with 61 year old male in mild acute distress resting in bed. SKIN: Warm and dry. HEAD: Atraumatic. Normocephalic. EYES: Pupils equal and round. No scleral icterus. No injection or drainage. ENT: No nasal bleeding or discharge. Mucous membranes pink and moist. NECK: Trachea midline. CARDIOVASCULAR: Regular rate and rhythm. Large well healed sternal incision. RESPIRATORY: No accessory muscle use. Clear to auscultation. Breath sounds equal bilaterally. GASTROINTESTINAL: Abdomen is distended; LLQ tenderness with minimal palpation. No visible scars on abdomen. MUSCULOSKELETAL: Extremities without clubbing, cyanosis, or edema. No obvious deformities. NEUROLOGICAL: Awake and alert. No obvious cranial nerve deficits. Motor grossly within normal limits. Five out of 5 muscle strength in the arms and legs. Normal speech. PSYCHIATRIC: Appropriate mood and affect; insight and judgment normal. Laboratory Laboratory Tests Test 11/24/16 01:27 11/24/16 01:50 11/24/16 06:00 11/24/16 07:11 White Blood Count 10.7 13.1 Red Blood Count 4.79 4.92 Hemoglobin 15.3 15.5 Hematocrit 44.7 46.1 Mean Corpuscular Volume 93.2 93.6 Mean Corpuscular Hemoglobin 32.0 31.4 Mean Corpuscular Hemoglobin Concent 34.3 33.6 Red Cell Distribution Width 13.5 13.6 Platelet Count 287 296 Mean Platelet Volume 7.6 7.5 Neutrophils (%) (Auto) 69.8 Lymphocytes (%) (Auto) 16.3 Monocytes (%) (Auto) 9.5 Eosinophils (%) (Auto) 3.1 Basophils (%) (Auto) 1.3 Neutrophils # (Auto) 7.6 Lymphocytes # (Auto) 1.7 Monocytes # (Auto) 1.0 Eosinophils # (Auto) 0.3 Basophils # (Auto) 0.1 CBC Comment AUTO DIFF AUTO DIFF Differential Comment AUTO DIFF CONFIRMED FINAL DIFF MANUAL Platelet Estimate NORMAL NORMAL Platelet Morphology Comment NORMAL NORMAL Red Cell Morphology Comment NORMAL Blood Urea Nitrogen 15 12 Creatinine 1.10 1.00 Random Glucose 129 151 Total Protein 8.1 7.4 Albumin 3.5 3.2 Calcium Level 8.8 8.3 Alkaline Phosphatase 165 137 Aspartate Amino Transf (AST/SGOT) 16 18 Alanine Aminotransferase (ALT/SGPT) 25 22 Total Bilirubin 0.3 0.4 Sodium Level 134 133 Potassium Level 4.2 4.3 Chloride Level 99 101 Carbon Dioxide Level 28.8 23.7 Anion Gap 6 8 Estimat Glomerular Filtration Rate 68 76 Lipase 180 Urine Color YELLOW Urine Turbidity CLEAR Urine pH 6.5 Urine Specific [place] 1.018 Urine Protein 30 Urine Glucose (UA) NEG Urine Ketones NEG Urine Occult Blood MOD Urine Nitrite NEG Urine Bilirubin NEG Urine Leukocyte Esterase NEG Urine RBC 10-14 Urine WBC 0-2 Urine Squamous Epithelial Cells 0-5 Urine Amorphous Sediment SMALL Urine Mucus FEW Microscopic Urinalysis Comment CULT NOT INDICATED Differential Total Cells Counted 100 Neutrophils % (Manual) 73 Lymphocytes % 20 Monocytes % 7 Neutrophils # (Manual) 9.6 Result Diagram: 11/24/16 0711 11/24/16 0600 Imaging Last 48 hours Impressions Abdomen/Pelvis CT 11/24/16 0122 Signed Impressions: Service Date/Time: Thursday, November 24, 2016 02:09 - CONCLUSION: Prominent sigmoid diverticulitis with locally contained perforation, multiple small collections of extraluminal air and concomitant emphysematous cystitis Venancio Turner MD Assessment and Plan Problem List: (1) Left lower quadrant pain ICD Codes: R10.32 - Left lower quadrant pain Status: Acute (2) Diverticulitis large intestine w/o perforation or abscess w/o bleeding ICD Codes: K57.32 - Diverticulitis of large intestine without perforation or abscess without bleeding Status: Acute (3) Diverticulitis ICD Codes: K57.92 - Diverticulitis of intestine, part unspecified, without perforation or abscess without bleeding Status: Acute (4) Coronary artery disease ICD Codes: I25.10 - Atherosclerotic heart disease of [place] coronary artery without angina pectoris Status: Chronic (5) History of sternectomy ICD Codes: Z98.890 - Other specified postprocedural states Status: Chronic (6) Abnormal CT of the abdomen ICD Codes: R93.5 - Abnormal findings on diagnostic imaging of other abdominal regions, including retroperitoneum (7) Elevated white blood cell count ICD Codes: D72.829 - Elevated white blood cell count, unspecified Assessment and Plan 61 year old male with acute sigmoid diverticulitis -Continue abdominal exams -Continue IVF -Continue Zosyn -Okay for sips of clear liquids; hold any PO intake if becomes nausea/vomits -Will consider CT guided drainage if abscess is large enough -May need surgical operation during this admission---will continue to follow closely -Thank you for this consult; We will continue to follow Discussed Condition With Dr. Dane Crandall Attending Statement NOTE FOR SURGICAL ATTENDING, DR. GAVIN VELA Patient has moderate left lower quadrant discomfort consistent with diverticulitis. I suspect the inflammatory response around the urinary bladder as a result of the diverticulosis diverticulitis and repeated attacks. Plan IV antibiotics for 3 days and then convert to by mouth He will need a outpatient colonoscopy if we can treat him conservatively with planned elective resection in the near future He has apparently had this discussion with other healthcare providers he was well aware of the plan Discussed with Dr. Proctor I agree with above assessment and plan. The exam, history, and the medical decision-making described in the above note were completed with the assistance of the mid-level provider. I reviewed and agree with the findings presented. I attest that I had a [id number] encounter with the patient on the same day, and personally performed and documented my assessment and findings in the medical record. The following services were provided during this hospital visit: Chart data review, vital sign assessments/reviewing monitor data Review of consultations notes if present. Medication orders/review and/or management Ordering and/or reviewing lab tests Ordering and/or interpreting/reviewing x-rays and/or diagnostic studies Care of the patient and discussion of the patient with the care team Documentation time To help prompt me to consider important information that might be impacting today's encounter and assessment, information from prior notes written by myself or my colleagues may have been "brought forward/copy and pasted" into today's note. Problem Qualifiers (1) Coronary artery disease: Gabbi Blair Nov 24, 2016 17:01 Gavin Vela MD Nov 24, 2016 20:20
--- NOTE | 2016-11-24 21:23 | MB ---
cc: PAUL BATISTA MD DATE OF CONSULTATION: 11/24/2016 REASON FOR CONSULTATION: 1. Possible emphysematous cystitis. 2. Urinary retention. HISTORY OF PRESENT ILLNESS: The patient is a 61-year-old male with history of diverticulitis who presented to the ER yesterday evening with complaints of left lower quadrant pain for three days. The pain was associated with nausea and decreased appetite. He has had two similar episodes in the past where he was diagnosed both times with diverticulitis. In the ER the patient had a CT of the abdomen and pelvis without contrast done which showed prominent diverticulosis with locally contained perforation and small air. He also was known to have some small amount of air within the left side of the bladder wall concerning for emphysematous cystitis. Urology was consulted for this finding. In discussion with the patient, the patient has also had a hard time urinating in the last few months. He is getting up three or four times a night, had a very weak stream. He also had occasional dysuria but denied any hematuria. Yesterday on presentation he was unable to urinate. He had a strong urgency but could not start a stream. A Husain catheter was placed which revealed 400 cc of urine and he immediately felt relief. He denies previously seeing a urologist or taking any medication for urinating in the past. Denies history of kidney stones. FAMILY HISTORY: Prostate cancer. No history of urinary tract infections. Denies urolithiasis. Denies flank pain, fevers, chills at this time. REVIEW OF SYSTEMS See HPI. All systems reviewed were negative. PAST MEDICAL HISTORY: 1. Diverticulitis. 2. Coronary artery disease. 3. Hypercholesterolemia. PAST SURGICAL HISTORY: 1. History of CABG. 2. Circumcision. ALLERGIES: NONE. HOME MEDICATIONS: None. SOCIAL HISTORY: Smokes one pack per day. Denies alcohol or illicit drug use. PHYSICAL EXAMINATION: VITAL SIGNS: Temperature 99, pulse 101, respiratory rate 19, blood pressure 129/84, sat 92% on room air. GENERAL: He is alert and oriented x 3. No apparent distress, pleasant, cooperative. Appears stated age. Head: Head is normocephalic, atraumatic. Neck: Supple. Trachea is midline. No JVD. Eyes: No scleral icterus. Extraocular muscles intact. Lungs: Clear to auscultation bilaterally. No rales, rhonchi or wheezing. Heart: Regular rate and rhythm. No murmurs, rubs, or gallops. Abdomen: Soft, with some left lower quadrant tenderness. Mildly distended. No peritoneal signs. Genitourinary: He is circumcised. Testes are descended bilaterally. Normal size and consistency without mass. Rectal: Exam deferred at this time. Extremities: Nontender. No clubbing, cyanosis or edema. Skin: No ulcers or rashes. [employer] and moist. Psych: Normal affect. Neurological: Cranial nerves II-XII intact. Strength 05/05 all for extremities. LABORATORY DATA: White count 13.1, hemoglobin 15.5, hematocrit 46.1, platelet count 296. Sodium 133, potassium 4.3, chloride 101, bicarb 23.7, BUN 12, creatinine 1.0, glucose 151. Urine shows moderate blood. IMAGING STUDIES: CT of the abdomen and pelvis images were reviewed. See radiologist report. The patient has small amount of air on the left side of the bladder, suspicious for emphysematous cystitis. He also has localized perforated diverticulitis. ASSESSMENT AND PLAN: The patient is a 61 year-old male with history of diverticulitis, who presents with left lower quadrant pain, found to have a perforated diverticulitis as well as urinary retention and some possible small amount of air in the bladder wall. Will start the patient on Flomax. Continue Husain catheter for a minimum of five days, then can have a voiding trial, depending on surgery's plans for the perforated diverticulitis. For the swollen area in the bladder, suspicion is low for emphysematous cystitis, as usually it is seen diffusely throughout the entire bladder wall, patient is fairly sick. Suspect this is air from the perforated diverticulitis, and/or possibly suspicion of colovesical fistula. Either way, will continue Husain catheter for now and antibiotics per the primary team. Thank you for the consultation. Paul Batista MD EMF/GIGI /8:05 PM /8:47 PM
[2016-11-24] MEDS: TAMSULOSIN HCL 0.4 MG CAP PO SCH (22:29)
[2016-11-25] VITALS (7 sets, daily range): BP systolic 106–135; BP diastolic 60–90; PULSE 101–114; RESP 18–20; TEMP 98.3–99.8; O2SAT 88–91
[2016-11-25] MEDS: HYDROmorphone HCL PF 1 MG/ML VIAL IV PUSH PRN ×6 (00:09→23:11)
[2016-11-25] MEDS: SODIUM CHLOR 0.9% 1000 ML INJ 1,000 ML IV SCH ×3 (03:56→14:48)
[2016-11-25] MEDS: PIPERACIL-TAZO 4.5 GM PREMIX 100 ML IV SCH ×4 (03:56→22:01)
[2016-11-25 06:19] LABS: AUTOMATED NEUTROPHIL # 12.3 TH/MM3 (1.8-7.7); BASOPHIL # 0.1 TH/MM3 (0-0.2); BASOPHIL % 0.6 % (0.0-2.0); EOSINOPHIL % 0.2 % (0.0-4.0); HEMATOCRIT 40.9 % (39.0-51.0); LYMPH % 6.9 % (9.0-44.0); MEAN CELL VOLUME 94.6 FL (80.0-100.0); MEAN CORPUSCULAR HEMOGLOBIN 31.5 PG (27.0-34.0); MEAN CORPUSCULAR HGB CONC 33.3 % (32.0-36.0); MONO % 4.4 % (0.0-8.0); NEUT % 87.9 % (16.0-70.0); PLATELET COUNT 235 TH/MM3 (150-450); RED BLOOD COUNT 4.33 MIL/MM3 (4.50-5.90); RED CELL DISTRIBUTION WIDTH 14.2 % (11.6-17.2)
[2016-11-25 06:23] LABS: CHLORIDE 100 MEQ/L (98-107); POTASSIUM 3.6 MEQ/L (3.5-5.1); SODIUM (NA) 135 MEQ/L (136-145)
[2016-11-25 06:29] LABS: HEMO FLAGS DIFF FINAL
[2016-11-25 06:30] LABS: ANION GAP 8 MEQ/L (5-15); BICARBONATE 26.9 MEQ/L (21.0-32.0); BLOOD UREA NITROGEN 10 MG/DL (7-18)
[2016-11-25 06:33] LABS: ALT (GPT) 16 U/L (12-78); AST (GOT) 12 U/L (15-37); GLOMERULAR FILTRATION RATE 85 ML/MIN (>89)
[2016-11-25 06:35] LABS: TOTAL BILIRUBIN ADULT 0.6 MG/DL (0.2-1.0)
[2016-11-25 06:36] LABS: ALKALINE PHOSPHATASE 111 U/L (45-117)
[2016-11-25] MEDS: SODIUM CHLORIDE 0.9% FLUSH 10 ML FLUSH IV FLUSH SCH ×2 (09:00→21:00)
[2016-11-25] MEDS: TAMSULOSIN HCL 0.4 MG CAP PO SCH (09:17)
--- NOTE | 2016-11-25 09:17 | HHI.PR ---
cc: Karthik Kwong MD Subjective Subjective Notes PROGRESS NOTE FOR SURGICAL ATTENDING, DR. KARTHIK KWONG doing well feels better less pain feels "air gurgling in his abd" Objective Vitals/I&O Vital Signs Date Time Temp Pulse Resp B/P (MAP) Pulse Ox O2 Delivery O2 Flow Rate FiO2 11/25/16 08:00 98.8 106 18 109/69 (82) 90 11/24/16 07:15 Room Air 11/24/16 04:13 3.00 Labs Vital Signs Date Time Temp Pulse Resp B/P (MAP) Pulse Ox O2 Delivery O2 Flow Rate FiO2 11/25/16 08:00 98.8 106 18 109/69 (82) 90 11/25/16 06:11 16 11/25/16 04:00 99.0 111 18 133/75 (94) 88 11/25/16 00:00 99.2 109 18 135/90 (105) 91 11/24/16 20:00 99.5 108 18 120/75 (90) 92 11/24/16 19:45 16 11/24/16 16:00 99.0 101 19 129/84 (99) 92 11/24/16 12:00 98.8 118 19 150/90 (110) 94 11/26/16 06:59 Intake Total 323 ml Balance 323 ml Laboratory Tests Test 11/25/16 05:20 White Blood Count 14.0 Red Blood Count 4.33 Hemoglobin 13.6 Hematocrit 40.9 Mean Corpuscular Volume 94.6 Mean Corpuscular Hemoglobin 31.5 Mean Corpuscular Hemoglobin Concent 33.3 Red Cell Distribution Width 14.2 Platelet Count 235 Mean Platelet Volume 7.9 Neutrophils (%) (Auto) 87.9 Lymphocytes (%) (Auto) 6.9 Monocytes (%) (Auto) 4.4 Eosinophils (%) (Auto) 0.2 Basophils (%) (Auto) 0.6 Neutrophils # (Auto) 12.3 Lymphocytes # (Auto) 1.0 Monocytes # (Auto) 0.6 Eosinophils # (Auto) 0.0 Basophils # (Auto) 0.1 CBC Comment DIFF FINAL Differential Comment Blood Urea Nitrogen 10 Creatinine 0.91 Random Glucose 125 Total Protein 6.7 Albumin 2.7 Calcium Level 7.9 Alkaline Phosphatase 111 Aspartate Amino Transf (AST/SGOT) 12 Alanine Aminotransferase (ALT/SGPT) 16 Total Bilirubin 0.6 Sodium Level 135 Potassium Level 3.6 Chloride Level 100 Carbon Dioxide Level 26.9 Anion Gap 8 Estimat Glomerular Filtration Rate 85 Radiology Last 48 hours Impressions Abdomen/Pelvis CT 11/24/16 0122 Signed Impressions: Service Date/Time: Thursday, November 24, 2016 02:09 - CONCLUSION: Prominent sigmoid diverticulitis with locally contained perforation, multiple small collections of extraluminal air and concomitant emphysematous cystitis Venancio Turner MD Cardiovascular: Regular Lungs: Clear Abdomen: Other (still llq pain less than yesterday), BS normal Extremities: Perfused Narrative Exam raphael in place good uop A/P Problem List: (1) Left lower quadrant pain ICD Codes: R10.32 - Left lower quadrant pain Status: Acute (2) Diverticulitis large intestine w/o perforation or abscess w/o bleeding ICD Codes: K57.32 - Diverticulitis of large intestine without perforation or abscess without bleeding Status: Acute (3) Diverticulitis ICD Codes: K57.92 - Diverticulitis of intestine, part unspecified, without perforation or abscess without bleeding Status: Acute (4) Coronary artery disease ICD Codes: I25.10 - Atherosclerotic heart disease of [place] coronary artery without angina pectoris Status: Chronic (5) History of sternectomy ICD Codes: Z98.890 - Other specified postprocedural states Status: Chronic (6) Abnormal CT of the abdomen ICD Codes: R93.5 - Abnormal findings on diagnostic imaging of other abdominal regions, including retroperitoneum (7) Elevated white blood cell count ICD Codes: D72.829 - Elevated white blood cell count, unspecified (8) Emphysematous cystitis ICD Codes: N30.80 - Other cystitis without hematuria Status: Acute Attending Statement PROGRESS NOTE FOR SURGICAL ATTENDING, DR. KARTHIK KWONG I attest that I had a [id number] encounter with the patient on the same day, and personally performed and documented my assessment and findings in the medical record. The following services were provided during this hospital visit: Chart data review, vital sign assessments/reviewing monitor data Review of consultations notes if present. Medication orders/review and/or management Ordering and/or reviewing lab tests Ordering and/or interpreting/reviewing x-rays and/or diagnostic studies Care of the patient and discussion of the patient with the care team Documentation time To help prompt me to consider important information that might be impacting today's encounter and assessment, information from prior notes written by myself or my colleagues may have been "brought forward/copy and pasted" into today's note. Problem Qualifiers (1) Coronary artery disease: Karthik Kwong MD Nov 25, 2016 09:17
--- NOTE | 2016-11-25 09:29 | HHI.PR ---
Subjective Remarks Patient has no new complaints. He has been evaluated by urology and by general surgery. Plan for conservative managements without surgical intervention at this point. Antibiotics and monitoring have been recommended by both general surgery and urology. Patient is content with this plan. Objective Vital Signs Date Time Temp Pulse Resp B/P (MAP) Pulse Ox O2 Delivery O2 Flow Rate FiO2 11/25/16 08:00 98.8 106 18 109/69 (82) 90 11/25/16 06:11 16 11/25/16 04:00 99.0 111 18 133/75 (94) 88 11/25/16 00:00 99.2 109 18 135/90 (105) 91 11/24/16 20:00 99.5 108 18 120/75 (90) 92 11/24/16 19:45 16 11/24/16 16:00 99.0 101 19 129/84 (99) 92 11/24/16 12:00 98.8 118 19 150/90 (110) 94 I/O 11/24/16 11/24/16 11/24/16 11/25/16 11/25/16 11/25/16 06:59 14:59 22:59 06:59 14:59 22:59 Intake Total 1350 ml 100 ml 1035 ml 340 ml 323 ml Output Total 270 ml 1400 ml 500 ml Balance 1080 ml 100 ml -365 ml -160 ml 323 ml Intake Oral 240 ml IV Total 1350 ml 100 ml 1035 ml 100 ml 323 ml Output Urine Total 270 ml 1400 ml 500 ml Bladder Scan Volume Amount 400 ml Result Diagram: 11/25/1651911/25/16519 Objective Remarks GENERAL: NAD, A&Ox3 HEAD: Normocephalic. NECK: Supple, trachea midline. No lymphadenopathy. EYES: No scleral icterus. No injection or drainage. CARDIOVASCULAR: Regular rate and rhythm without murmurs, gallops, or rubs. RESPIRATORY: Breath sounds equal bilaterally. No accessory muscle use. GASTROINTESTINAL: Abdomen soft, no distention. Abdominal tenderness without guarding. MUSCULOSKELETAL: No cyanosis, or edema. SKIN: Warm and dry. NEURO: No focal neurological deficitis. A/P Problem List: (1) Emphysematous cystitis ICD Code: N30.80 - Other cystitis without hematuria Status: Acute (2) Abnormal CT of the abdomen ICD Code: R93.5 - Abnormal findings on diagnostic imaging of other abdominal regions, including retroperitoneum (3) Elevated white blood cell count ICD Code: D72.829 - Elevated white blood cell count, unspecified (4) Left lower quadrant pain ICD Code: R10.32 - Left lower quadrant pain Status: Acute Assessment and Plan Assessment and plan 61-year-old male admitted secondary to diverticulitis with abscess and possible bladder fistula. Continue antibiotics. Follow vital signs. Labs reviewed. White blood cell count decreasing. Continue to monitor labs. Labs ordered. Sepsis Resolved. Acute diverticulitis Diverticular abscess Possible bladder fistula Continue as needed pain treatments Clear liquid diet Surgery following Urology following Continue Zosyn IV hydration No surgery planned Continue antibiotic treatments and monitoring CAD History of CABG No chest pain Follow clinically Hyperlipidemia Check fasting lipid profile in a.m. Presently on dietary treatments DVT prophylaxis High risk of bleed SCDs Abdirahman Nina MD Nov 25, 2016 09:29
[2016-11-26] VITALS (7 sets, daily range): BP systolic 112–162; BP diastolic 67–93; PULSE 96–112; RESP 16–21; TEMP 94.2–98.8; O2SAT 87–92
[2016-11-26] MEDS: SODIUM CHLOR 0.9% 1000 ML INJ 1,000 ML IV SCH ×2 (01:59→12:08)
[2016-11-26] MEDS: PIPERACIL-TAZO 4.5 GM PREMIX 100 ML IV SCH ×4 (03:23→21:15)
[2016-11-26] MEDS: HYDROmorphone HCL PF 1 MG/ML VIAL IV PUSH PRN ×5 (03:54→21:21)
[2016-11-26 06:23] LABS: BASOPHIL % 0.2 % (0.0-2.0); EOSINOPHIL # 0.1 TH/MM3 (0-0.4); EOSINOPHIL % 0.4 % (0.0-4.0); HEMATOCRIT 36.8 % (39.0-51.0); HEMO FLAGS DIFF FINAL; LYMPH % 6.8 % (9.0-44.0); LYMPHOCYTE # 0.9 TH/MM3 (1.0-4.8); MEAN CELL VOLUME 92.3 FL (80.0-100.0); MEAN CORPUSCULAR HEMOGLOBIN 32.5 PG (27.0-34.0); MEAN CORPUSCULAR HGB CONC 35.3 % (32.0-36.0); MONO % 5.2 % (0.0-8.0); NEUT % 87.4 % (16.0-70.0); PLATELET COUNT 224 TH/MM3 (150-450); RED BLOOD COUNT 3.99 MIL/MM3 (4.50-5.90); RED CELL DISTRIBUTION WIDTH 13.6 % (11.6-17.2); WHITE BLOOD COUNT 13.7 TH/MM3 (4.0-11.0)
[2016-11-26 06:45] LABS: CHLORIDE 102 MEQ/L (98-107); POTASSIUM 3.7 MEQ/L (3.5-5.1); SODIUM (NA) 136 MEQ/L (136-145)
[2016-11-26 06:49] LABS: ANION GAP 5 MEQ/L (5-15); BICARBONATE 28.8 MEQ/L (21.0-32.0); BLOOD UREA NITROGEN 5 MG/DL (7-18)
[2016-11-26 06:52] LABS: ALT (GPT) 15 U/L (12-78); AST (GOT) 9 U/L (15-37); GLOMERULAR FILTRATION RATE 93 ML/MIN (>89)
[2016-11-26 06:54] LABS: TOTAL BILIRUBIN ADULT 0.8 MG/DL (0.2-1.0)
[2016-11-26 06:55] LABS: ALKALINE PHOSPHATASE 123 U/L (45-117)
[2016-11-26] MEDS: TAMSULOSIN HCL 0.4 MG CAP PO SCH (08:07)
[2016-11-26] MEDS: SODIUM CHLORIDE 0.9% FLUSH 10 ML FLUSH IV FLUSH SCH ×2 (08:08→21:00)
--- NOTE | 2016-11-26 10:01 | HHI.PR ---
Subjective Remarks Improvement in patient's condition. Tachycardia has resolved. No new complaints from the patient. Objective Vital Signs Date Time Temp Pulse Resp B/P (MAP) Pulse Ox O2 Delivery O2 Flow Rate FiO2 11/26/16 08:00 98.3 104 16 112/71 (85) 88 11/26/16 04:24 16 11/26/16 04:00 98.6 107 21 130/71 (90) 88 11/26/16 00:00 94.2 112 18 115/67 (83) 87 11/25/16 20:00 99.2 112 20 115/76 (89) 90 11/25/16 20:00 108 11/25/16 16:00 99.8 114 18 106/60 (75) 90 11/25/16 12:00 98.3 101 18 107/68 (81) 90 I/O 11/25/16 11/25/16 11/25/16 11/26/16 11/26/16 11/26/16 07:00 15:00 23:00 07:00 15:00 23:00 Intake Total 340 ml 633 ml 483 ml 601 ml Output Total 500 ml 250 ml 350 ml Balance -160 ml 383 ml 133 ml 601 ml Intake Oral 240 ml IV Total 100 ml 633 ml 483 ml 601 ml Output Urine Total 500 ml 250 ml 350 ml Result Diagram: 11/26/1652911/26/16529 Objective Remarks GENERAL: NAD, A&Ox3 HEAD: Normocephalic. NECK: Supple, trachea midline. No lymphadenopathy. EYES: No scleral icterus. No injection or drainage. CARDIOVASCULAR: Regular rate and rhythm without murmurs, gallops, or rubs. RESPIRATORY: Breath sounds equal bilaterally. No accessory muscle use. GASTROINTESTINAL: Abdomen soft, no distention. Abdominal tenderness without guarding. MUSCULOSKELETAL: No cyanosis, or edema. SKIN: Warm and dry. NEURO: No focal neurological deficitis. A/P Problem List: (1) Emphysematous cystitis ICD Code: N30.80 - Other cystitis without hematuria Status: Acute (2) Abnormal CT of the abdomen ICD Code: R93.5 - Abnormal findings on diagnostic imaging of other abdominal regions, including retroperitoneum (3) Elevated white blood cell count ICD Code: D72.829 - Elevated white blood cell count, unspecified (4) Left lower quadrant pain ICD Code: R10.32 - Left lower quadrant pain Status: Acute Assessment and Plan Assessment and plan 61-year-old male admitted secondary to diverticulitis with abscess and possible bladder fistula. Continue antibiotics. Follow vital signs. Labs reviewed. White blood cell count decreasing. Continue to monitor labs. Labs ordered. Telemetry are removed. Patient encouraged to ambulate. Sepsis Resolved. Acute diverticulitis Diverticular abscess Possible bladder fistula Continue as needed pain treatments Clear liquid diet Surgery following Urology following Continue Zosyn IV hydration No surgery planned Continue antibiotic treatments and monitoring CAD History of CABG No chest pain Follow clinically Hyperlipidemia Check fasting lipid profile in a.m. Presently on dietary treatments DVT prophylaxis High risk of bleed SCDs Abdirahman Nina MD Nov 26, 2016 10:01
[2016-11-26] MEDS ORDERED: DOCUSATE SODIUM 50 MG/SENNA 8.6 MG TAB PO PRN (14:30)
[2016-11-26] MEDS: BISACODYL 10 MG SUPP RECTAL PRN (15:19)
--- NOTE | 2016-11-26 17:29 | HHI.PR ---
cc: Karthik Kwong MD Subjective Subjective Notes DAILY PROGRESS NOTE FOR SURGICAL ATTENDING, DR. KARTHIK KWONG Feels better Passing flatus Tolerating liquids Objective Vitals/I&O Vital Signs Date Time Temp Pulse Resp B/P (MAP) Pulse Ox O2 Delivery O2 Flow Rate FiO2 11/26/16 16:00 97.2 96 16 145/83 (103) 92 11/24/16 07:15 Room Air 11/24/16 04:13 3.00 Labs Laboratory Tests Test 11/26/16 05:30 White Blood Count 13.7 Red Blood Count 3.99 Hemoglobin 13.0 Hematocrit 36.8 Mean Corpuscular Volume 92.3 Mean Corpuscular Hemoglobin 32.5 Mean Corpuscular Hemoglobin Concent 35.3 Red Cell Distribution Width 13.6 Platelet Count 224 Mean Platelet Volume 7.5 Neutrophils (%) (Auto) 87.4 Lymphocytes (%) (Auto) 6.8 Monocytes (%) (Auto) 5.2 Eosinophils (%) (Auto) 0.4 Basophils (%) (Auto) 0.2 Neutrophils # (Auto) 12.0 Lymphocytes # (Auto) 0.9 Monocytes # (Auto) 0.7 Eosinophils # (Auto) 0.1 Basophils # (Auto) 0.0 CBC Comment DIFF FINAL Differential Comment Blood Urea Nitrogen 5 Creatinine 0.84 Random Glucose 122 Total Protein 6.5 Albumin 2.4 Calcium Level 7.7 Alkaline Phosphatase 123 Aspartate Amino Transf (AST/SGOT) 9 Alanine Aminotransferase (ALT/SGPT) 15 Total Bilirubin 0.8 Sodium Level 136 Potassium Level 3.7 Chloride Level 102 Carbon Dioxide Level 28.8 Anion Gap 5 Estimat Glomerular Filtration Rate 93 Radiology Last 48 hours Impressions Abdomen/Pelvis CT 11/24/16 0122 Signed Impressions: Service Date/Time: Thursday, November 24, 2016 02:09 - CONCLUSION: Prominent sigmoid diverticulitis with locally contained perforation, multiple small collections of extraluminal air and concomitant emphysematous cystitis Venancio Turner MD Cardiovascular: Regular Lungs: Clear Abdomen: Other (mild soreness left lower quadrant somewhat less than previous exam) Extremities: Perfused Narrative Exam raphael in place good uop A/P Problem List: (1) Left lower quadrant pain ICD Codes: R10.32 - Left lower quadrant pain Status: Acute (2) Diverticulitis large intestine w/o perforation or abscess w/o bleeding ICD Codes: K57.32 - Diverticulitis of large intestine without perforation or abscess without bleeding Status: Acute (3) Diverticulitis ICD Codes: K57.92 - Diverticulitis of intestine, part unspecified, without perforation or abscess without bleeding Status: Acute (4) Coronary artery disease ICD Codes: I25.10 - Atherosclerotic heart disease of [place] coronary artery without angina pectoris Status: Chronic (5) History of sternectomy ICD Codes: Z98.890 - Other specified postprocedural states Status: Chronic (6) Abnormal CT of the abdomen ICD Codes: R93.5 - Abnormal findings on diagnostic imaging of other abdominal regions, including retroperitoneum (7) Elevated white blood cell count ICD Codes: D72.829 - Elevated white blood cell count, unspecified (8) Emphysematous cystitis ICD Codes: N30.80 - Other cystitis without hematuria Status: Acute Assessment and Plan 61-year-old gentleman with recurrent diverticulitis improving with IV antibiotics. Continue IV antibiotics at this time Possible increased diet tomorrow depending on medical status He did pass some flatus today and his pain is improved his white count is coming down as well. Attending Statement NOTE FOR SURGICAL ATTENDING, DR. KARTHIK KWONG I attest that I had a [id number] encounter with the patient on the same day, and personally performed and documented my assessment and findings in the medical record. The following services were provided during this hospital visit: Chart data review, vital sign assessments/reviewing monitor data Review of consultations notes if present. Medication orders/review and/or management Ordering and/or reviewing lab tests Ordering and/or interpreting/reviewing x-rays and/or diagnostic studies Care of the patient and discussion of the patient with the care team Documentation time To help prompt me to consider important information that might be impacting today's encounter and assessment, information from prior notes written by myself or my colleagues may have been "brought forward/copy and pasted" into today's note. Problem Qualifiers (1) Coronary artery disease: Karthik Kwong MD Nov 26, 2016 17:29
[2016-11-26] MEDS ORDERED: SIMETHICONE 125 MG CHEWABLE TAB PO ONE (18:15)
[2016-11-27] VITALS: BP 141/90; PULSE 101; RESP 20; TEMP 98.6; O2SAT 90
[2016-11-27] MEDS: SODIUM CHLOR 0.9% 1000 ML INJ 1,000 ML IV SCH ×2 (01:38→11:46)
[2016-11-27] MEDS: HYDROmorphone HCL PF 1 MG/ML VIAL IV PUSH PRN ×5 (01:42→22:12)
[2016-11-27] MEDS: PIPERACIL-TAZO 4.5 GM PREMIX 100 ML IV SCH (03:33)
[2016-11-27 06:40] LABS: BASOPHIL % 0.2 % (0.0-2.0); EOSINOPHIL # 0.1 TH/MM3 (0-0.4); EOSINOPHIL % 0.5 % (0.0-4.0); HEMATOCRIT 38.8 % (39.0-51.0); LYMPH % 10.6 % (9.0-44.0); LYMPHOCYTE # 1.1 TH/MM3 (1.0-4.8); MEAN CELL VOLUME 93.9 FL (80.0-100.0); MEAN CORPUSCULAR HEMOGLOBIN 31.6 PG (27.0-34.0); MEAN CORPUSCULAR HGB CONC 33.7 % (32.0-36.0); MONO % 5.5 % (0.0-8.0); NEUT % 83.2 % (16.0-70.0); PLATELET COUNT 269 TH/MM3 (150-450); RED BLOOD COUNT 4.13 MIL/MM3 (4.50-5.90); RED CELL DISTRIBUTION WIDTH 13.4 % (11.6-17.2); WHITE BLOOD COUNT 10.8 TH/MM3 (4.0-11.0)
[2016-11-27 06:43] LABS: CHLORIDE 101 MEQ/L (98-107); POTASSIUM 3.2 MEQ/L (3.5-5.1); SODIUM (NA) 137 MEQ/L (136-145)
[2016-11-27 06:48] LABS: ANION GAP 7 MEQ/L (5-15); BICARBONATE 29.2 MEQ/L (21.0-32.0)
[2016-11-27 06:49] LABS: BLOOD UREA NITROGEN 5 MG/DL (7-18)
[2016-11-27 06:52] LABS: ALT (GPT) 16 U/L (12-78); AST (GOT) 14 U/L (15-37); GLOMERULAR FILTRATION RATE 117 ML/MIN (>89)
[2016-11-27 06:53] LABS: TOTAL BILIRUBIN ADULT 0.7 MG/DL (0.2-1.0)
[2016-11-27 06:54] LABS: ALKALINE PHOSPHATASE 139 U/L (45-117)
[2016-11-27 07:12] LABS: HEMO FLAGS AUTO DIFF
--- NOTE | 2016-11-27 07:27 | HHI.PR ---
Subjective Subjective Notes DAILY PROGRESS NOTE FOR SURGICAL ATTENDING, DR. KARTHIK VELA Passing gas Less abdominal pain He would like to order something for breakfast Objective Vitals/I&O Vital Signs Date Time Temp Pulse Resp B/P (MAP) Pulse Ox O2 Delivery O2 Flow Rate FiO2 11/27/16 00:00 98.6 101 20 141/90 (107) 90 11/24/16 07:15 Room Air 11/24/16 04:13 3.00 Labs Laboratory Tests Test 11/27/16 05:44 White Blood Count 10.8 Red Blood Count 4.13 Hemoglobin 13.1 Hematocrit 38.8 Mean Corpuscular Volume 93.9 Mean Corpuscular Hemoglobin 31.6 Mean Corpuscular Hemoglobin Concent 33.7 Red Cell Distribution Width 13.4 Platelet Count 269 Mean Platelet Volume 7.9 Neutrophils (%) (Auto) 83.2 Lymphocytes (%) (Auto) 10.6 Monocytes (%) (Auto) 5.5 Eosinophils (%) (Auto) 0.5 Basophils (%) (Auto) 0.2 Neutrophils # (Auto) 9.0 Lymphocytes # (Auto) 1.1 Monocytes # (Auto) 0.6 Eosinophils # (Auto) 0.1 Basophils # (Auto) 0.0 CBC Comment AUTO DIFF Blood Urea Nitrogen 5 Creatinine 0.69 Random Glucose 98 Total Protein 6.9 Albumin 2.4 Calcium Level 8.1 Alkaline Phosphatase 139 Aspartate Amino Transf (AST/SGOT) 14 Alanine Aminotransferase (ALT/SGPT) 16 Total Bilirubin 0.7 Sodium Level 137 Potassium Level 3.2 Chloride Level 101 Carbon Dioxide Level 29.2 Anion Gap 7 Estimat Glomerular Filtration Rate 117 Radiology Last 48 hours Impressions Abdomen/Pelvis CT 11/24/16 0122 Signed Impressions: Service Date/Time: Thursday, November 24, 2016 02:09 - CONCLUSION: Prominent sigmoid diverticulitis with locally contained perforation, multiple small collections of extraluminal air and concomitant emphysematous cystitis Venancio Turner MD Cardiovascular: Regular Abdomen: Non-distended, Other (less tender left lower quadrant) Narrative Exam raphael in place good uop A/P Problem List: (1) Left lower quadrant pain ICD Codes: R10.32 - Left lower quadrant pain Status: Acute (2) Diverticulitis large intestine w/o perforation or abscess w/o bleeding ICD Codes: K57.32 - Diverticulitis of large intestine without perforation or abscess without bleeding Status: Acute (3) Diverticulitis ICD Codes: K57.92 - Diverticulitis of intestine, part unspecified, without perforation or abscess without bleeding Status: Acute (4) Coronary artery disease ICD Codes: I25.10 - Atherosclerotic heart disease of [place] coronary artery without angina pectoris Status: Chronic (5) History of sternectomy ICD Codes: Z98.890 - Other specified postprocedural states Status: Chronic (6) Abnormal CT of the abdomen ICD Codes: R93.5 - Abnormal findings on diagnostic imaging of other abdominal regions, including retroperitoneum (7) Elevated white blood cell count ICD Codes: D72.829 - Elevated white blood cell count, unspecified (8) Emphysematous cystitis ICD Codes: N30.80 - Other cystitis without hematuria Status: Acute Assessment and Plan 61-year-old gentleman with recurrent diverticulitis improving with IV antibiotics. Continue IV antibiotics at this time White count down to 10 He did pass some flatus today and his pain is improved Advance diet Convert antibiotics to by mouth Problem Qualifiers (1) Coronary artery disease: Karthik Vela MD Nov 27, 2016 07:27
[2016-11-27] MEDS ORDERED: ACETAMINOPHEN/HYDROcodone 325 MG/5 MG TAB PO PRN (07:45)
[2016-11-27 07:59] LABS: SCAN/DIFF AUTO DIFF CONFIRMED
[2016-11-27] MEDS: TAMSULOSIN HCL 0.4 MG CAP PO SCH (08:55)
[2016-11-27 09:00] VITALS: BP 148/92; PULSE 90; RESP 14; TEMP 97.7; O2SAT 90
[2016-11-27] MEDS: SODIUM CHLORIDE 0.9% FLUSH 10 ML FLUSH IV FLUSH SCH ×2 (09:06→20:01)
[2016-11-27] MEDS: CIPROFLOXACIN 750 MG TAB PO SCH ×2 (10:20→20:54)
[2016-11-27] MEDS: metroNIDAZOLE 500 MG TAB PO SCH ×2 (11:43→18:05)
[2016-11-27 12:00] VITALS: BP 144/90; PULSE 81; RESP 18; TEMP 96; O2SAT 97
[2016-11-27 16:00] VITALS: BP 131/82; PULSE 87; RESP 18; TEMP 95.9; O2SAT 96
[2016-11-27 19:50] VITALS: O2SAT 94
[2016-11-27 22:15] VITALS: BP 156/77; PULSE 84; RESP 16; TEMP 98.8; O2SAT 94
[2016-11-28] VITALS (15 sets, daily range): BP systolic 93–176; BP diastolic 63–110; PULSE 77–105; RESP 16–33; TEMP 96.6–98.9; O2SAT 93–99
[2016-11-28] MEDS: metroNIDAZOLE 500 MG TAB PO SCH ×4 (01:49→17:49)
[2016-11-28] MEDS: HYDROmorphone HCL PF 1 MG/ML VIAL IV PUSH PRN ×3 (02:30→22:13)
[2016-11-28] MEDS: TAMSULOSIN HCL 0.4 MG CAP PO SCH (09:05)
[2016-11-28] MEDS: SODIUM CHLORIDE 0.9% FLUSH 10 ML FLUSH IV FLUSH SCH ×2 (09:06→22:14)
[2016-11-28] MEDS: SODIUM CHLOR 0.9% 1000 ML INJ 1,000 ML IV SCH ×2 (09:06→17:48)
[2016-11-28] MEDS: CIPROFLOXACIN 750 MG TAB PO SCH ×2 (09:39→22:13)
[2016-11-28] MEDS ORDERED: ENALAPRILAT 2.5 MG/2 ML VIAL IV PUSH ONE (10:00)
[2016-11-28] MEDS ORDERED: ENALAPRILAT 1.25 MG/ML VIAL IV PUSH PRN (10:00)
[2016-11-28] MEDS ORDERED: METOPROLOL TARTRATE 25 MG TAB PO SCH (10:00)
[2016-11-28] MEDS ORDERED: NITROGLYCERIN 0.4 MG SL 25 TABS/BTL SL PRN (10:15)
[2016-11-28] MEDS ORDERED: MORPHINE SULFATE 2 MG/ML INJ IM ONE (10:30)
[2016-11-28] MEDS: LISINOPRIL 10 MG TAB PO SCH (10:59)
--- NOTE | 2016-11-28 11:20 | HHI.PR ---
Subjective Remarks delayed note from 11/27 Patient resting comfortably in bed, he still have abdominal tenderness with palpation but it's tolerable No nausea or vomiting no diarrhea no fever or chills Objective Vitals Vital Signs Date Time Temp Pulse Resp B/P (MAP) Pulse Ox O2 Delivery O2 Flow Rate FiO2 11/28/16 08:00 96.6 88 16 152/87 (108) 95 11/28/16 07:59 95 Nasal Cannula 2.00 11/28/16 04:57 11/28/16 00:29 98.9 90 18 134/72 (92) 95 11/27/16 22:42 18 11/27/16 22:15 98.8 84 16 156/77 (103) 94 11/27/16 19:50 94 Nasal Cannula 2.00 11/27/16 16:00 95.9 87 18 131/82 (98) 96 11/27/16 12:00 96.0 81 18 144/90 (108) 97 I/O 11/27/16 11/27/16 11/27/16 11/28/16 11/28/16 11/28/16 06:59 14:59 22:59 06:59 14:59 22:59 Intake Total 220 ml 1109 ml 1506 ml 800 ml Output Total 1400 ml 1050 ml 975 ml 3400 ml 1600 ml Balance -1180 ml 59 ml 531 ml -2600 ml -1600 ml Intake Oral 120 ml 222 ml 444 ml IV Total 100 ml 887 ml 1062 ml 800 ml Output Urine Total 1400 ml 1050 ml 975 ml 3400 ml 1600 ml # Bowel Movements 0 Result Diagram: 11/27/16 0544 11/27/16 0544 Objective Remarks - GENERAL: This is a well-nourished, well-developed patient, in no apparent distress. SKIN: No rashes, warm and dry HEAD: Atraumatic. Normocephalic. EYES: Pupils equal round and reactive. Extraocular motions intact. No scleral icterus. ENT: Nose without bleeding, or drainage, Airway patent. NECK: Trachea midline. Supple CARDIOVASCULAR: Regular rate and rhythm without murmurs, gallops, or rubs. RESPIRATORY: Fair air entry bilaterally. No wheezes, rales, or rhonchi. GASTROINTESTINAL: Abdomen soft, mild mid abdomen tenderness, nondistended. Positive bowel sounds MUSCULOSKELETAL: Extremities without clubbing, cyanosis, or edema. Pedal pulses appreciated NEUROLOGICAL: Awake and alert. Moves all extremity. Normal speech.no focal neurological deficit A/P Problem List: (1) Diverticulitis large intestine w/o perforation or abscess w/o bleeding ICD Code: K57.32 - Diverticulitis of large intestine without perforation or abscess without bleeding Status: Acute (2) Diverticulitis of small intestine with complication ICD Code: K57.12 - Diverticulitis of small intestine without perforation or abscess without bleeding Status: Acute (3) Diverticulitis ICD Code: K57.92 - Diverticulitis of intestine, part unspecified, without perforation or abscess without bleeding Status: Acute Assessment and Plan 11/27: Continue iv antibiotic, blood pressure increased to 148/92, apply as needed Vasotec and monitor closely A/P: 61-year-old male admitted secondary to diverticulitis with abscess and possible bladder fistula. Continue antibiotics. Follow vital signs. Labs reviewed. White blood cell count decreasing. Continue to monitor labs. Labs ordered. Telemetry are removed. Patient encouraged to ambulate. Sepsis Resolved. Acute diverticulitis Diverticular abscess Possible bladder fistula Continue as needed pain treatments Clear liquid diet Surgery following Urology following Continue Zosyn IV hydration No surgery planned Continue antibiotic treatments and monitoring CAD History of CABG No chest pain Follow clinically Hyperlipidemia Check fasting lipid profile in a.m. Presently on dietary treatments DVT prophylaxis High risk of bleed SCDs Zandra Marie MD Nov 28, 2016 11:19
--- NOTE | 2016-11-28 11:23 | HHI.PR ---
Subjective Remarks I was called by the nurse patient having chest pain with increased blood pressure diastolic 176/110 Came to see the patient he reported tightness in his chest 6 out of 10, no nausea or vomiting, blood pressure Objective Vitals Vital Signs Date Time Temp Pulse Resp B/P (MAP) Pulse Ox O2 Delivery O2 Flow Rate FiO2 11/28/16 08:00 96.6 88 16 152/87 (108) 95 11/28/16 07:59 95 Nasal Cannula 2.00 11/28/16 04:57 11/28/16 00:29 98.9 90 18 134/72 (92) 95 11/27/16 22:42 18 11/27/16 22:15 98.8 84 16 156/77 (103) 94 11/27/16 19:50 94 Nasal Cannula 2.00 11/27/16 16:00 95.9 87 18 131/82 (98) 96 11/27/16 12:00 96.0 81 18 144/90 (108) 97 I/O 11/27/16 11/27/16 11/27/16 11/28/16 11/28/16 11/28/16 06:59 14:59 22:59 06:59 14:59 22:59 Intake Total 220 ml 1109 ml 1506 ml 800 ml Output Total 1400 ml 1050 ml 975 ml 3400 ml 1600 ml Balance -1180 ml 59 ml 531 ml -2600 ml -1600 ml Intake Oral 120 ml 222 ml 444 ml IV Total 100 ml 887 ml 1062 ml 800 ml Output Urine Total 1400 ml 1050 ml 975 ml 3400 ml 1600 ml # Bowel Movements 0 Result Diagram: 11/27/16 0544 11/27/16 0544 Objective Remarks - GENERAL: This is a well-nourished, well-developed patient, in no apparent distress. SKIN: No rashes, warm and dry HEAD: Atraumatic. Normocephalic. EYES: Pupils equal round and reactive. Extraocular motions intact. No scleral icterus. ENT: Nose without bleeding, or drainage, Airway patent. NECK: Trachea midline. Supple CARDIOVASCULAR: Regular rate and rhythm without murmurs, gallops, or rubs. RESPIRATORY: Fair air entry bilaterally. No wheezes, rales, or rhonchi. GASTROINTESTINAL: Abdomen soft, mild mid abdomen tenderness, nondistended. Positive bowel sounds MUSCULOSKELETAL: Extremities without clubbing, cyanosis, or edema. Pedal pulses appreciated NEUROLOGICAL: Awake and alert. Moves all extremity. Normal speech.no focal neurological deficit A/P Problem List: (1) Diverticulitis large intestine w/o perforation or abscess w/o bleeding ICD Code: K57.32 - Diverticulitis of large intestine without perforation or abscess without bleeding Status: Acute (2) Diverticulitis of small intestine with complication ICD Code: K57.12 - Diverticulitis of small intestine without perforation or abscess without bleeding Status: Acute (3) Diverticulitis ICD Code: K57.92 - Diverticulitis of intestine, part unspecified, without perforation or abscess without bleeding Status: Acute Assessment and Plan 11/27: Continue iv antibiotic, blood pressure increased to 148/92, apply as needed Vasotec and monitor closely 11/28: Acute chest pain with Accelerated hypertension 176/110 with heart rate 93 , I will add Lopressorpo and give sublingual nitroglycerin with 1 dose of Vasotec, morphine sulfate and monitor blood pressure closely I discussed with the nurse, UA showing proteinuria may need to add low dose LOUISE inhibitor, cycle cardiac enzyme and EKG stat, aspirin 325 Is cussed with the nurse later on blood pressure improved to 140/80 ADDENDUM: Patient had nausea and one episode of vomiting, his initial troponin increased to 0.9, repeated EKG showing T-wave inversion in precordial leads, will start heparin drip and consult cardiology Addendum: Critical care note I was called around 2:[address] Foreman notifying me about ST elevation on inferior leads on EKG was done at 10:30 this morning I personally never had this EKG, we called STEMI alert and I talked to Dr. Avila the [employer] principal taking STEMI calls, he recommended checking chest pain status and another EKG which we did and it showed normalizing of the ST as well as A. fib, heart rate has been in the 140 but improved later on to 90s, and the patient reported 0 chest pain at this point, all the EKG has been sent to Dr. Avila while he was over the phone. Patient already received 25 mg of Lopressor earlier this morning. Dr. Avila recommended holding on urgent At this point, continue with heparin drip, aspirin , Plavix, transfer to ICU at the [facility], he will look at the patient at the main. He also requested discussing with the surgery team to get clearance for heparin drip and Plavix I called Dr. Catalan and discussed with him he agreed with anticoagulation , and definitely recommended against surgical intervention especially with NH and he graciously stated he will look at the patient when he gets to the C Prior to the patient leaving to the [facility] I Examined and assess the patient prior to leave to the [facility], his lungs were clear however I reduces iv fluid to total 50 cc/h, I consulted the risk management internship in the main and called Dr. Craft, made him aware of the case, he will be in touch with the high school principal for further catheter Critical time 90 minutes A/P: 61-year-old male admitted secondary to diverticulitis with abscess and possible bladder fistula. Continue antibiotics. Follow vital signs. Labs reviewed. White blood cell count decreasing. Continue to monitor labs. Labs ordered. Telemetry are removed. Patient encouraged to ambulate. Sepsis Resolved. Acute diverticulitis Diverticular abscess Possible bladder fistula Continue as needed pain treatments Clear liquid diet Surgery following Urology following Continue Zosyn IV hydration No surgery planned Continue antibiotic treatments and monitoring CAD History of CABG Hyperlipidema DVT prophylaxis High risk of bleed SCDs Zandra Marie MD Nov 28, 2016 11:22
[2016-11-28] MEDS ORDERED: ASPIRIN 325 MG TAB PO ONE (11:30)
[2016-11-28] MEDS ORDERED: CALCIUM CARBONATE 500 MG CHEWABLE TAB PO PRN (13:45)
[2016-11-28] MEDS ORDERED: HEPARIN-D5W 25,000 U/250 ML 250 ML IV PRN (14:30)
--- NOTE | 2016-11-28 14:30 | EKG ---
Date Performed: 11/28/2016 Time Performed: 13:57:53 PTAGE: 61 years EKG: ATRIAL FIBRILLATION WITH RAPID VENTRICULAR RESPONSE Nonspecific ST-T wave changes ABNORMAL ECG Compared to prior electrocardiogram inferior ST elevation is slightly less PREVIOUS TRACING : 11/28/2016 10.39 DOCTOR: Dylon Foreman Interpretating Date/Time 11/28/2016 14:28:38
[2016-11-28 14:43] LABS: HEMATOCRIT 38.4 % (39.0-51.0); MEAN CELL VOLUME 93.2 FL (80.0-100.0); MEAN CORPUSCULAR HEMOGLOBIN 31.3 PG (27.0-34.0); MEAN CORPUSCULAR HGB CONC 33.6 % (32.0-36.0); PLATELET COUNT 338 TH/MM3 (150-450); RED BLOOD COUNT 4.12 MIL/MM3 (4.50-5.90); RED CELL DISTRIBUTION WIDTH 13.5 % (11.6-17.2); REVIEW FLAG FINAL; WHITE BLOOD COUNT 11.1 TH/MM3 (4.0-11.0)
--- NOTE | 2016-11-28 14:44 | EKG ---
Date Performed: 11/28/2016 Time Performed: 10:39:45 PTAGE: 61 years EKG: ATRIAL FIBRILLATION WITH ABERRANT CONDUCTION OR VENTRICULAR PREMATURE COMPLEXES Inferior ST elevation which appears new and is consistent with an inferior ST elevation AR. Compared to prior el ectrocardiogram, atrial fibrillation and inferior ST elevation is now present. [facility] who will be checking into this. PREVIOUS TRACING : 11/24/2016 01.32 DOCTOR: Dylon Foreman Interpretating Date/Time 11/28/2016 14:42:06
[2016-11-28 14:57] LABS: APTT (PATIENT) 31.3 SEC (24.3-30.1); PROTHROMBIN TIME - PATIENT 10.6 SEC (9.8-11.6)
[2016-11-28 15:02] LABS: CREATINE KINASE 110 U/L (39-308)
[2016-11-28 15:14] LABS: CKMB 8.7 NG/ML (0.5-3.6)
--- NOTE | 2016-11-28 16:18 | EKG ---
Date Performed: 11/28/2016 Time Performed: 15:03:11 PTAGE: 61 years EKG: ATRIAL FIBRILLATION WITH RAPID VENTRICULAR RESPONSE WITH ABERRANT CONDUCTION OR VENTRICULAR PREMATURE COMPLEXES NONSPECIFIC ST & T-WAVE ABNORMALITY ABNORMAL RHYTHM ECG Compared to prior electr ocardiogram, no definite changes. PREVIOUS TRACING : 11/28/2016 13.57 DOCTOR: Dylon Foreman Interpretating Date/Time 11/28/2016 16:16:44
--- NOTE | 2016-11-28 16:34 | PD.CONS ---
[facility] Service Critical Care Medicine Consult Requested By Dr. Marie Reason for Consult Elevated troponin Primary Care Physician No Primary Care Physician History of Present Illness This is a 61-year-old male. Date of admission 11/24/2016. Date of consultation 11/28/2016. Past medical history includes coronary artery disease status post CABG 4 years ago in [facility], history of 3 coronary artery stents, atrial fibrillation currently normal sinus rhythm and history of diverticulosis. History of diverticulitis. Patient originally was admitted to [facility] with a three-day history of abdominal pain that was eventually diagnosed as sigmoid diverticulitis with contained perforation. 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 Patient was seen by Dr. Proctor/urology was contained from the perforated diverticulum. Recommended bladder placement 5 days and follow-up as an outpatient follow-up initiate tamsulosin 0.4 mg by mouth daily. Seen in consultation by Dr. Vela. Patient was placed on antibiotics is currently on oral ciprofloxacin and metronidazole. Is currently on normal diet. Currently denies any abdominal pain. At 10:30 today, patient expressed chest pressure 7/10 without radiation to the head neck or shoulder. This lasted about 30 minutes duration. This is relieved with IV morphine. EKG revealed A. fib with RVR with ST elevation in inferior leads II, III and aVF. This is eventually picked up and hospitalist was notified. Patient was placed on a heparin drip and a full dose aspirin. Cardiology was consulted and patient was transferred to [facility] for further evaluation treatment. Doesn't time, patient is currently normal sinus rhythm. EKG shows no ST elevation in the inferior leads. Patient denies chest pain, abdominal pain, nausea, vomiting, headache Review of Systems Constitutional: COMPLAINS OF: Fatigue, Weight loss, DENIES: Fever, Weight gain Endocrine: DENIES: Polydipsia, Polyuria Eyes: DENIES: Blurred vision Ears, nose, mouth, throat: DENIES: Tinnitus Respiratory: DENIES: Apneas Cardiovascular: COMPLAINS OF: Chest pain, DENIES: Palpitations, Claudication Gastrointestinal: DENIES: Abdominal pain, Diarrhea, Nausea, Vomiting Genitourinary: COMPLAINS OF: Urgency Musculoskeletal: DENIES: Joint pain, Back pain, Neck pain Integumentary: DENIES: Abnormal pigmentation Hematologic/lymphatic: DENIES: Bruising Immunologic/allergic: DENIES: Eczema Neurologic: DENIES: Abnormal gait Psychiatric: DENIES: Anxiety, Confusion Past Family Social History Allergies: Coded Allergies: ipratropium (Unverified Allergy, Severe, Anaphylaxis, 11/24/16) protein hydrolysate (Unverified Allergy, Severe, Anaphylaxis, 11/24/16) Past Medical History Coronary artery disease Dyslipidemia History of sigmoid diverticulosis, diverticulitis Atrial fibrillation/paroxysmal currently normal sinus rhythm Snoring Past Surgical History Appendectomy Circumcision CABG 4 Coronary artery stents 3 Reported Medications None Active Ordered Medications Reviewed in EMR Family History Mother from emphysema. Father from atherosclerotic vascular disease Social History 1 pack per day tobacco 40 years. Rare to no alcohol use. Denies illicit drug use. Physical Exam Vital Signs Vital Signs Date Time Temp Pulse Resp B/P (MAP) Pulse Ox O2 Delivery O2 Flow Rate FiO2 11/28/16 12:00 97.0 105 16 93/70 (78) 99 11/28/16 11:25 92 136/83 (100) 93 11/28/16 10:10 90 176/110 (132) 95 11/28/16 08:00 96.6 88 16 152/87 (108) 95 11/28/16 07:59 95 Nasal Cannula 2.00 11/28/16 04:57 11/28/16 00:29 98.9 90 18 134/72 (92) 95 11/27/16 22:42 18 11/27/16 22:15 98.8 84 16 156/77 (103) 94 11/27/16 19:50 94 Nasal Cannula 2.00 Physical Exam GENERAL: 61-year-old male, resting in bed in no acute distress SKIN: Warm and dry. Well perfused HEAD: Atraumatic. Normocephalic. EYES: Pupils equal and round about 3 mm bilaterally and reactive. No scleral icterus. No injection or drainage. ENT: No nasal bleeding or discharge. Mucous membranes pink and moist. NECK: Trachea midline. No JVD. CARDIOVASCULAR: Regular rate and rhythm. S1, S2. No S4. 2/6 murmur systolic left sternal border. Prior midline sternotomy scars noticed RESPIRATORY: No accessory muscle use. Clear to auscultation. Breath sounds equal bilaterally. GASTROINTESTINAL: Abdomen soft, non-tender, nondistended. Hypoactive bowel sounds are appreciated MUSCULOSKELETAL: Extremities without significant peripheral edema. No obvious deformities. NEUROLOGICAL: Awake and alert. No obvious cranial nerve deficits. Motor grossly within normal limits. Five out of 5 muscle strength in the arms and legs. Normal speech. PSYCHIATRIC: Appropriate mood and affect; insight and judgment normal. Laboratory Laboratory Tests Test 11/28/16 10:31 11/28/16 14:25 Total Creatine Kinase 54 110 Troponin I 0.09 0.79 White Blood Count 11.1 Red Blood Count 4.12 Hemoglobin 12.9 Hematocrit 38.4 Mean Corpuscular Volume 93.2 Mean Corpuscular Hemoglobin 31.3 Mean Corpuscular Hemoglobin Concent 33.6 Red Cell Distribution Width 13.5 Platelet Count 338 Mean Platelet Volume 7.5 Prothrombin Time 10.6 Prothromb Time International Ratio 1.0 Activated Partial Thromboplast Time 31.3 Creatine Kinase MB 8.7 Result Diagram: 11/28/16 1425 11/27/16 0544 Imaging Last Impressions Abdomen/Pelvis CT 11/24/16 0122 Signed Impressions: Service Date/Time: Thursday, November 24, 2016 02:09 - CONCLUSION: Prominent sigmoid diverticulitis with locally contained perforation, multiple small collections of extraluminal air and concomitant emphysematous cystitis Venancio Turner MD Assessment and Plan Assessment and Plan Neuro/Psych: Acetaminophen/hydrocodone 5/325 one to 2 tablets every 4 hours as needed for pain Morphine sulfate 2 mg every 4 hours when necessary breakthrough pain CV: Coronary artery disease status post CABG times for 10 years ago in [facility] History of 3 coronary artery stents Dyslipidemia History of A. fib with RVR/paroxysmal currently normal sinus rhythm Elevated troponin with resolved ST elevation inferior leads Troponin currently 0.8. Per cycle every 8 hours 2 Received aspirin 325 mg 1. Schedule for 81 mg daily. Heparin drip initiated. Currently in metoprolol 5 mill grams IV every 6 hours. Consider LOUISE inhibitor or lipid-lowering in a.m. To be evaluated by cardiology/Dr. Avila. Current EKG from [place] shows no ST elevation Lipid panel ordered for a.m. Discussed with Dr. Avila, cardiology. Recommended stat EKG troponin. Keep patient nothing by mouth except for medications. Based on information provided previously will decide whether to proceed with cardiac catheterization tonight versus medical management Resp: Nasal cannula to maintain saturations greater than or equal to 92% Incentive spirometry while awake Chest x-ray pending GI: Sigmoid diverticulitis - perforation CT abdomen/pelvis 11/24 revealed sigmoid diverticulitis/perforation with extension air 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 Evaluated by Dr. Vela general surgery. Currently on ciprofloxacin 750 mg by mouth twice a day and metronidazole 500 mg every 6 hours Currently on heart healthy diet Pantoprazole for GI prophylaxis Docusate sodium/senna for bowel regimen Discussed with Dr. Milton, frickertron checker for general surgery. Stated that patient is at low risk for bleeding at the present time. No prior history of lower GI bleed. : Emphysematous bladder? Evaluated by Dr. Proctor /urology for possible length sinus bladder. Please note currently playing. He was started on tamsulosin 0.4 mg by mouth daily CT findings likely extension from contained perforation and not affecting the bladder. Endo: Sliding-scale insulin if indicated to maintain euglycemia Check TSH Renal: Creatinine currently within normal limits Monitor urine output Accurate I's and O's Heme: Leukocytosis Normocytic anemia Monitor CBC daily. Follow trends Currently on heparin drip ID: Sigmoid diverticulitis Continue ciprofloxacin 750 mg by mouth twice a day and metronidazole 500 mg by mouth every 6 hours per general surgery's recommendations FEN: Hypokalemia Replace electrolytes as clinically indicated MSK: PT evaluate and treat Access - Utilize peripheral IV. Central line if indicated Prophylaxis - GI - pantoprazole - DVT - SCD/heparin drip 30 minutes critical care time Code Status Full code Discussed Condition With Patient. Care plan discussed and all questions answered. Peterson Walters MD Nov 28, 2016 16:34
[2016-11-28] MEDS ORDERED: MISCELLANEOUS NURSING INFORMATION XX SCH (16:45)
[2016-11-28] MEDS ORDERED: CHLORHEXIDINE GLUCONATE 2 % 1 PACK (2 CLOTHS) TOP PRN (16:45)
[2016-11-28] MEDS ORDERED: RESP: ALBUTEROL 2.5 MG/3 ML NEB (PRN) INH (16:45)
[2016-11-28] MEDS ORDERED: POTASSIUM CHLOR 20 MEQ PREMIX 100 ML IV PRN (17:00)
[2016-11-28] MEDS ORDERED: MAGNESIUM OXIDE 400 MG TAB PO PRN (17:00)
[2016-11-28] MEDS ORDERED: SODIUM PHOSPHATE INJ 30 MMOL in SODIUM CHLOR 0.9% 250 ML INJ 240 ML IV PRN (17:00)
[2016-11-28] MEDS ORDERED: POTASSIUM PHOSPHATE INJ 30 MMOL in SODIUM CHLOR 0.9% 250 ML INJ 250 ML IV PRN (17:00)
[2016-11-28] MEDS ORDERED: POTASSIUM CHLORIDE 25 MEQ EFFERVESCENT TAB PO PRN (17:00)
[2016-11-28] MEDS ORDERED: MAGNESIUM SULFATE INJ 2 GM in SODIUM CHLORIDE 0.9% INJ 96 ML IV PRN (17:00)
[2016-11-28] MEDS ORDERED: MAGNESIUM SULFATE INJ 4 GM in SODIUM CHLORIDE 0.9% INJ 92 ML IV PRN (17:00)
[2016-11-28] MEDS ORDERED: POTASSIUM CHLOR 40 MEQ PREMIX 100 ML IV PRN ×2 (17:00)
[2016-11-28] MEDS ORDERED: POTASSIUM PHOSPHATE MONOBASIC 500 MG TAB PO/TUBE PRN (17:00)
--- NOTE | 2016-11-28 17:22 | RADRPT ---
EXAM DATE/TIME: 11/28/2016 17:00 [place] COMPARISON: No previous studies available for comparison. INDICATIONS : Chest pain. MEDICAL HISTORY : Cardiovascular disease. SURGICAL HISTORY : CABG. Appendectomy. ENCOUNTER: Subsequent ACUITY: 4 - 6 days PAIN SCORE: 2/10 LOCATION: Bilateral chest FINDINGS: Focal airspace disease characteristic of atelectasis is seen in the right mid lung. Lungs are otherwi se clear. Median sternotomy wires from prior surgery noted. Heart is normal in size. Osseous structures are int act. CONCLUSION: Right midlung airspace disease characteristic of atelectasis otherwise no evidence of acute process. Heron Garrett MD on November 28, 2016 at 17:20 Board Certified Radiologist. This report was verified electronically.
[2016-11-28] MEDS: METOPROLOL TARTRATE 5 MG/5 ML VIAL IV PUSH SCH ×2 (17:49→22:12)
[2016-11-28 18:26] LABS: POTASSIUM 3.1 MEQ/L (3.5-5.1)
[2016-11-28] MEDS ORDERED: POTASSIUM CHLORIDE 20 MEQ CONTROLLED RELEASE TAB PO ONE (18:45)
--- NOTE | 2016-11-28 18:49 | EKG ---
Date Performed: 11/28/2016 Time Performed: 17:22:18 PTAGE: 61 years EKG: Probable ectopic atrial rhythm OCCASIONAL SUPRAVENTRICULAR PREMATURE COMPLEXES MODERATE INT RAVENTRICULAR CONDUCTION DELAY NONSPECIFIC T-WAVE ABNORMALITY ABNORMAL ECG Compared to prior EKG, pro bable ectopic atriall rhythm has replaceed atrial fibrillation. PREVIOUS TRACING : 11/28/2016 15.03 DOCTOR: Dylon Foreman Interpretating Date/Time 11/28/2016 18:49:06
[2016-11-28] MEDS ORDERED: HEPARIN SODIUM - IV 10,000 UNITS/10 ML VIAL IV PUSH PRN ×2 (20:15)
[2016-11-29] VITALS (38 sets, daily range): BP systolic 113–177; BP diastolic 57–95; PULSE 89–112; RESP 14–42; TEMP 98.1–98.6; O2SAT 86–100
[2016-11-29 00:48] LABS: HDL CHOLESTEROL 29.2 MG/DL (40.0-60.0); LDL CHOLESTEROL 130 MG/DL (0-99)
[2016-11-29] MEDS: metroNIDAZOLE 500 MG TAB PO SCH ×4 (00:50→17:55)
--- NOTE | 2016-11-29 01:12 | HHI.PR ---
Subjective Subjective Notes late entry note from 11/28/16 patient feels better no CP currently transferred to [facility] for STEMI Objective Vitals/I&O Vital Signs Date Time Temp Pulse Resp B/P (MAP) Pulse Ox O2 Delivery O2 Flow Rate FiO2 11/28/16 23:00 85 25 140/83 (102) 93 11/28/16 20:31 Nasal Cannula 2.00 11/28/16 20:00 98.3 Labs Laboratory Tests Test 11/28/16 10:31 11/28/16 14:25 11/28/16 16:14 11/28/16 17:24 Total Creatine Kinase 54 110 Troponin I 0.09 0.79 6.44 White Blood Count 11.1 Red Blood Count 4.12 Hemoglobin 12.9 Hematocrit 38.4 Mean Corpuscular Volume 93.2 Mean Corpuscular Hemoglobin 31.3 Mean Corpuscular Hemoglobin Concent 33.6 Red Cell Distribution Width 13.5 Platelet Count 338 Mean Platelet Volume 7.5 Prothrombin Time 10.6 Prothromb Time International Ratio 1.0 Activated Partial Thromboplast Time 31.3 Creatine Kinase MB 8.7 Nasal Screen MRSA (PCR) MRSA NOT DETECTED Blood Urea Nitrogen 7 Creatinine 0.67 Random Glucose 128 Calcium Level 8.4 Phosphorus Level 2.5 Magnesium Level 2.0 Sodium Level 136 Potassium Level 3.1 Chloride Level 101 Carbon Dioxide Level 27.0 Anion Gap 8 Estimat Glomerular Filtration Rate 121 Test 11/28/16 20:49 11/28/16 23:29 Activated Partial Thromboplast Time 31.0 Triglycerides Level 152 Cholesterol Level 190 LDL Cholesterol 130 HDL Cholesterol 29.2 Cholesterol/HDL Ratio 6.50 Thyroid Stimulating Hormone 3rd Gen 5.330 Radiology Last 48 hours Impressions Abdomen/Pelvis CT 11/24/16 0122 Signed Impressions: Service Date/Time: Thursday, November 24, 2016 02:09 - CONCLUSION: Prominent sigmoid diverticulitis with locally contained perforation, multiple small collections of extraluminal air and concomitant emphysematous cystitis Venancio Turner MD Abdomen: Non-distended, Non-tender A/P Problem List: (1) Left lower quadrant pain ICD Codes: R10.32 - Left lower quadrant pain Status: Acute (2) Diverticulitis large intestine w/o perforation or abscess w/o bleeding ICD Codes: K57.32 - Diverticulitis of large intestine without perforation or abscess without bleeding Status: Acute (3) Diverticulitis ICD Codes: K57.92 - Diverticulitis of intestine, part unspecified, without perforation or abscess without bleeding Status: Acute (4) Coronary artery disease ICD Codes: I25.10 - Atherosclerotic heart disease of [place] coronary artery without angina pectoris Status: Chronic (5) History of sternectomy ICD Codes: Z98.890 - Other specified postprocedural states Status: Chronic (6) Abnormal CT of the abdomen ICD Codes: R93.5 - Abnormal findings on diagnostic imaging of other abdominal regions, including retroperitoneum (7) Elevated white blood cell count ICD Codes: D72.829 - Elevated white blood cell count, unspecified (8) Emphysematous cystitis ICD Codes: N30.80 - Other cystitis without hematuria Status: Acute Assessment and Plan 61yo male with diverticulitis, improving. CP today, w/u showed STEMI, cards seeing, on Heparin and going for cardiac cath in AM continue ABX, ok for diet will follow Problem Qualifiers (1) Coronary artery disease: Elian Donald MD Nov 29, 2016 01:12
[2016-11-29 02:10] LABS: ALKALINE PHOSPHATASE 160 U/L (45-117); ALT (GPT) 20 U/L (12-78); ANION GAP 7 MEQ/L (5-15); AST (GOT) 99 U/L (15-37); BICARBONATE 28.6 MEQ/L (21.0-32.0); BLOOD UREA NITROGEN 7 MG/DL (7-18); CHLORIDE 99 MEQ/L (98-107); GLOMERULAR FILTRATION RATE 148 ML/MIN (>89); MAGNESIUM 1.9 MG/DL (1.5-2.5); POTASSIUM 3.3 MEQ/L (3.5-5.1); SODIUM (NA) 135 MEQ/L (136-145); TOTAL BILIRUBIN ADULT 0.3 MG/DL (0.2-1.0)
[2016-11-29 02:19] LABS: CREATINE KINASE 968 U/L (39-308)
[2016-11-29] MEDS: HYDROmorphone HCL PF 1 MG/ML VIAL IV PUSH PRN ×5 (02:32→23:01)
[2016-11-29] MEDS: SODIUM CHLOR 0.9% 1000 ML INJ 1,000 ML IV SCH (02:32)
[2016-11-29 03:10] LABS: CKMB 91.1 NG/ML (0.5-3.6)
[2016-11-29 03:58] LABS: APTT (PATIENT) 35.3 SEC (24.3-30.1)
[2016-11-29] MEDS: CHLORHEXIDINE GLUCONATE 2 % 1 PACK (2 CLOTHS) TOP SCH (04:00)
[2016-11-29] MEDS: METOPROLOL TARTRATE 5 MG/5 ML VIAL IV PUSH SCH (05:30)
[2016-11-29 06:51] LABS: AUTOMATED NEUTROPHIL # 9.9 TH/MM3 (1.8-7.7); BASOPHIL % 0.4 % (0.0-2.0); EOSINOPHIL % 0.2 % (0.0-4.0); HEMATOCRIT 38.2 % (39.0-51.0); HEMO FLAGS DIFF FINAL; LYMPH % 9.7 % (9.0-44.0); LYMPHOCYTE # 1.2 TH/MM3 (1.0-4.8); MEAN CORPUSCULAR HEMOGLOBIN 32.6 PG (27.0-34.0); MEAN CORPUSCULAR HGB CONC 34.7 % (32.0-36.0); MONO % 10.6 % (0.0-8.0); NEUT % 79.1 % (16.0-70.0); PLATELET COUNT 327 TH/MM3 (150-450); RED BLOOD COUNT 4.07 MIL/MM3 (4.50-5.90); RED CELL DISTRIBUTION WIDTH 14.1 % (11.6-17.2); WHITE BLOOD COUNT 12.4 TH/MM3 (4.0-11.0)
[2016-11-29] MEDS: TAMSULOSIN HCL 0.4 MG CAP PO SCH (07:58)
[2016-11-29] MEDS: ASPIRIN 81 MG CHEW TAB CHEW SCH (07:58)
[2016-11-29] MEDS: SODIUM CHLORIDE 0.9% FLUSH 10 ML FLUSH IV FLUSH SCH ×2 (08:00→21:35)
[2016-11-29] MEDS: RESP: ALBUTEROL 2.5 MG/3 ML NEB (SCH) INH ×4 (08:30→20:28)
--- NOTE | 2016-11-29 08:47 | HHI.CCPN ---
Subjective Remarks/Hospital Course History of Present Illness This is a 61-year-old male. Date of admission 11/24/2016. Date of consultation 11/28/2016. Past medical history includes coronary artery disease status post CABG 4 years ago in [facility], history of 3 coronary artery stents, atrial fibrillation currently normal sinus rhythm and history of diverticulosis. History of diverticulitis. Patient originally was admitted to [facility] with a three-day history of abdominal pain that was eventually diagnosed as sigmoid diverticulitis with contained perforation. 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 Patient was seen by Dr. Proctor/urology was contained from the perforated diverticulum. Recommended bladder placement 5 days and follow-up as an outpatient follow-up initiate tamsulosin 0.4 mg by mouth daily. Seen in consultation by Dr. Vela. Patient was placed on antibiotics is currently on oral ciprofloxacin and metronidazole. Is currently on normal diet. Currently denies any abdominal pain. At 10:30 today, patient expressed chest pressure 7/10 without radiation to the head neck or shoulder. This lasted about 30 minutes duration. This is relieved with IV morphine. EKG revealed A. fib with RVR with ST elevation in inferior leads II, III and aVF. This is eventually picked up and hospitalist was notified. Patient was placed on a heparin drip and a full dose aspirin. Cardiology was consulted and patient was transferred to [facility] for further evaluation treatment. Doesn't time, patient is currently normal sinus rhythm. EKG shows no ST elevation in the inferior leads. Patient denies chest pain, abdominal pain, nausea, vomiting, headache Subjective: 11/29: Afebrile. The patient had one episode of what is described as "chest pressure' with a VAS pain scale of 3/4, relieved with Dilaudid 1 mg this a.m.. Concurrently the patient was noted to have increasing oxygen requirements currently on facemask at 15 L to maintain an O2 saturation greater than 90%. Chest x-ray pending. Echo currently being performed. The patient remains NPO for pending cardiac catheterization this a.m.. Objective Vital Signs Date Time Temp Pulse Resp B/P (MAP) Pulse Ox O2 Delivery O2 Flow Rate FiO2 11/29/16 08:02 91 Simple Mask 15.00 11/29/16 06:00 90 11/29/16 06:00 26 130/80 (97) 11/29/16 04:00 98.6 Intake and Output 11/29/16 11/29/16 11/30/16 08:00 16:00 00:00 Intake Total 1480 ml Output Total 850 ml Balance 630 ml Result Diagram: 11/29/16 0543 11/28/16 2329 Imaging Last Impressions Abdomen/Pelvis CT 11/24/16 0122 Signed Impressions: Service Date/Time: Thursday, November 24, 2016 02:09 - CONCLUSION: Prominent sigmoid diverticulitis with locally contained perforation, multiple small collections of extraluminal air and concomitant emphysematous cystitis Venancio Turner MD Objective Remarks BP 137/78 Pulse 87 O2 saturation 94% on face mask 15 L GENERAL: 61-year-old male, resting in bed in no acute distress SKIN: Warm and dry. Well perfused HEAD: Atraumatic. Normocephalic. EYES: Pupils equal and round about 3 mm bilaterally and reactive. No scleral icterus. No injection or drainage. ENT: No nasal bleeding or discharge. Mucous membranes pink and moist. NECK: Trachea midline. No JVD. CARDIOVASCULAR: Regular rate and rhythm. S1, S2. No S4. 2/6 murmur systolic left sternal border. Prior midline sternotomy scars noticed RESPIRATORY: No accessory muscle use. Clear to auscultation. Breath sounds equal bilaterally. GASTROINTESTINAL: Abdomen soft, non-tender, nondistended. Hypoactive bowel sounds are appreciated MUSCULOSKELETAL: Extremities without significant peripheral edema. No obvious deformities. NEUROLOGICAL: Awake and alert. No obvious cranial nerve deficits. Motor grossly within normal limits. Five out of 5 muscle strength in the arms and legs. Normal speech. PSYCHIATRIC: Appropriate mood and affect; insight and judgment normal. Procedures 11/29-cardiac catheterization Urinary Catheter: No A/P Assessment and Plan Neuro/Psych: Angina Abdominal pain Acetaminophen/hydrocodone 5/325 one to 2 tablets every 4 hours as needed for pain Morphine sulfate 2 mg every 4 hours when necessary breakthrough pain CV: Coronary artery disease status post CABG times for 10 years ago in [facility] History of 3 coronary artery stents Dyslipidemia History of A. fib with RVR/paroxysmal currently normal sinus rhythm Elevated troponin with resolved ST elevation inferior leads Troponin currently 6.4-> 25.3->28.7 today Received aspirin 325 mg 1. Schedule for 81 mg daily. Heparin drip initiated. Currently in metoprolol 5 mg IV every 6 hours. Consider LOUISE inhibitor or lipid-lowering in a.m. Cardiology following -Dr. Avila.- Cardiac catheterization scheduled 11/29 Current EKG - no ST elevation Lipid panel- LDL [id number], triglycerides 152, alkaline [id number] Keep patient nothing by mouth except for medications or cardiac catheterization today Patient reports previously on diuretics Lasix, discontinued secondary to loss of medical insurance will resume post cardiac catheterization, upon recommendations Resp: Tobacco abuse Respiratory insufficiency Nasal cannula to maintain saturations greater than or equal to 92%, increasing O2 requirements this a.m. 15 L as mask to achieve 93% O2 sat Patient has history of 1 pack a day smoking >30 years, patient counseled on smoking cessation Incentive spirometry while awake Obtain chest x-ray Chest x-ray this a.m. 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 Evaluated by Dr. Vela general surgery. Currently on ciprofloxacin 750 mg by mouth twice a day and metronidazole 500 mg every 6 hours Currently on heart healthy diet Pantoprazole for GI prophylaxis Docusate suppository PRN for bowel regimen : Emphysematous bladder? Evaluated by Dr. Proctor /urology for possible length sinus bladder. Please note currently playing. He was started on tamsulosin 0.4 mg by mouth daily CT findings likely extension from contained perforation and not affecting the bladder. Endo: Sliding-scale insulin if indicated to maintain euglycemia TSH- 5.33 elevated, obtain T3, T4 level Renal: Creatinine currently within normal limits Monitor urine output Accurate I's and O's Heme: Leukocytosis Normocytic anemia Monitor CBC daily. Follow trends Currently on heparin drip ID: Sigmoid diverticulitis Continue ciprofloxacin 750 mg by mouth twice a day and metronidazole 500 mg by mouth every 6 hours per general surgery's recommendations FEN: Hypokalemia Replace electrolytes as clinically indicated IVF Normal saline 0.9 % decrease 75 cc/hour MSK: PT evaluate and treat Access - Utilize peripheral IV. Central line if indicated Prophylaxis - GI - pantoprazole - DVT - SCD/heparin drip This patient remains critically ill with one or more organ systems which are or may become a threat to life. I have spent in excess of 30 minutes discontinuously in the care and management of this patient. This time is exclusive of procedures, and includes, but is not limited to, evaluation of the patient, review of the medical record, discussions with family, consultants, nursing staff, or respiratory therapy, and documentation in the medical record. Physician Marva Jeffery MD Nov 29, 2016 08:47
[2016-11-29] MEDS: LISINOPRIL 10 MG TAB PO SCH (09:00)
[2016-11-29] MEDS: CIPROFLOXACIN 750 MG TAB PO SCH ×2 (09:00→21:34)
--- NOTE | 2016-11-29 09:11 | RADRPT ---
EXAM DATE/TIME: 11/29/2016 08:56 [facility] COMPARISON: CHEST SINGLE AP, November 28, 2016, 17:00. INDICATIONS : Respiratory disease MEDICAL HISTORY : Cardiovascular disease. SURGICAL HISTORY : CABG. Appendectomy. ENCOUNTER: Subsequent ACUITY: 4 - 6 days PAIN SCORE: 0/10 LOCATION: chest FINDINGS: There's been no change in the infiltrate involving the right perihilar area. The left lung remains gr ossly clear. There continues to be a interstitial changes bilaterally. Heart size is stable. No defin ite pleural effusions. There is evidence of previous cardiothoracic surgery. CONCLUSION: No significant change in the nonspecific infiltrate in the right middle lobe. If the infiltrate does not resolve after appropriate medical therapy, recommend a noncontrast CT thorax for further evaluati on. Primitivo Toribio MD on November 29, 2016 at 9:06 Board Certified Radiologist. This report was verified electronically.
--- NOTE | 2016-11-29 10:12 | ECHRPT ---
Indication: Chest pain CONCLUSIONS BP: 130 / 80 HR: 97 Rhythm: Sinus MEASUREMENTS (Male / Female) Normal Values Technical Quality:Technically difficult study 2D ECHO LVOT Diameter 2.0 cm LV Ejection Fraction MOD 4C 46.7 % LV Cardiac Index MOD 4C 1642.9 cm/minm LV Ejection Fraction 4C AL 47.5 % LV Cardiac Index 4C AL 1741.7 cm/minm M-MODE LV Diastolic Diameter MM 6.3 cm 4.2 - 5.9 / 3.9 - 5.3 cm LV Systolic Diameter MM 4.8 cm LV Ejection Fraction MM Teich 46.1 % LV Cardiac Index MM Teich 4400.7 cm/minm IVS Diastolic Thickness MM 1.0 cm 0.6 - 1.0 / 0.6 - 0.9 cm LVPW Diastolic Thickness MM 1.0 cm 0.6 - 1.0 / 0.6 - 0.9 cm LV Relative Wall Thickness MM 0.3 0.24 - 0.42 / 0.22 - 0.42 LV Mass Index MM 130.2 g/m 49 - 115 / 43 - 95 g/m Aortic Root Diameter MM 3.5 cm LA Systolic Diameter MM 4.0 cm LA Ao Ratio MM 1.1 AV Cusp Separation MM 1.9 cm DOPPLER AV Peak Velocity 86.9 cm/s AV Peak Gradient 3.0 mmHg LVOT Peak Velocity 71.6 cm/s LVOT Peak Gradient 2.1 mmHg AV Area Cont Eq pk 2.6 cm MV Area PHT 5.8 cm Mitral E Point Velocity 114.0 cm/s Mitral A Point Velocity 63.2 cm/s Mitral E to A Ratio 1.8 TR Peak Velocity 250.0 cm/s TR Peak Gradient 25.0 mmHg Right Atrial Pressure 10.0 mmHg Pulmonary Artery Systolic Pressu 35.0 mmHg Right Ventricular Systolic Press 35.0 mmHg PV Peak Velocity 81.4 cm/s PV Peak Gradient 2.7 mmHg FINDINGS LEFT VENTRICLE The left ventricular systolic function is mildly reduced with an estimated ejection fraction in the range of 45- 50%. Normal left ventricular size. Wall thickness is normal. Hypokinetic mid-inferior wall motion. Hypokinetic basal inferior wall motion. RIGHT VENTRICLE Normal right ventricular size and systolic function. The right ventricle was not well visualized. LEFT ATRIUM The left atrial size is normal. RIGHT ATRIUM The right atrial size is normal. ATRIAL SEPTUM Normal atrial septal thickness without atrial level shunting by limited color doppler interrogation. The interatrial septum not well visualized. AORTA The aortic root and proximal ascending aorta are normal in size on limited imaging. MITRAL VALVE Structurally normal mitral valve. Trace mitral valve regurgitation AORTIC VALVE The aortic valve is not well visualized. No aortic valve stenosis or regurgitation. TRICUSPID VALVE Structurally normal tricuspid valve. There is trace tricuspid valve regurgitation. The estimated pulmonary arterial pressure is 39 mmHg. PULMONARY VALVE The pulmonary valve is not well visualized. Trivial pulmonary valve regurgitation. VESSELS The inferior vena cava is normal in size. PERICARDIUM No pericardial effusion. Dylon Foreman MD (Electronically Signed) Final Date:29 November 2016 10:10
[2016-11-29] MEDS ORDERED: HEPARIN-NS/PF INJ 1,000 ML ONE (10:40)
[2016-11-29] MEDS ORDERED: MIDAZOLAM HCL 2 MG/2 ML VIAL ONE (10:46)
[2016-11-29] MEDS ORDERED: HEPARIN SODIUM - IV 10,000 UNITS/10 ML VIAL ONE ×2 (11:12→11:43)
[2016-11-29] MEDS ORDERED: FUROSEMIDE 40 MG/4 ML VIAL ONE (11:48)
[2016-11-29] MEDS ORDERED: TICAGRELOR 90 MG TAB PO ONE (12:02)
--- NOTE | 2016-11-29 12:27 | CATHPROC ---
[facility] HIS Report Study Information Study Number Admission Scheduled Start Study Start [id number] Nov 24 2016 3:14AM 11/29/2016 Nov 29 2016 10:36AM [place] [facility] Cardiac Catheterization Admit Source Facility Department Other [facility] - Network Services Project Manager Physician and Clinical Staff Initial Aftab Ferro Greens Keeper Roaslio Davila,SANDI Greens Keeper Maxine Ferraro RN Recorder Loreto Faust,(R) Scrub Dony Livingston RCIS(BS) Procedures Performed Procedure Location (Site) Vessel Name Coronary Angiograms LCA Left Coronary Coronary Angiograms RCA Right Coronary Coronary Angiograms RAMIREZ-LAD Left Coronary Coronary Angiograms SVG-DIAG Left Coronary Coronary Angiograms SVG-OM CIRC Coronary Angiograms SVG-RCA Right Coronary Drug Eluting Inflatio SVG-RCA Right Coronary L Heart Cath PTCA SVG-RCA Right Coronary Wire insertion Fem Art (right) Femoral Art Equipment Time Installer Molding And Trim Description Size Mfg Part Number Used/Scraped [id number] 11:13 [employer] WIRE, FlextripWATER 180CM 180CM Used *[id number] TRANSDUCER, GlobeRanger [id number] 11:05 MARAVILLA MERCHANT * Used W/STOCKCOCK *[id number] *[id number] *[id number] *[id number] ENDOVASCULAR WIRE, SPIDERFX 4.0 X [id number] 11:27 40 X 320CM Used COMPANY 320/190CM *[id number] 11:05 [employer] PACK, CCL CUSTOM * Used *[id number] 11:20 MEDTRONIC BALLOON, 2.0 X 10MM EUPHORA 10MM Used *[id number] 11:39 MEDTRONIC STENT, 3.0 15MM JAYLYN 3.0 15MM Used *[id number] 11:33 [employer] MEDICAL 30 GRADY INDEFLATOR Used *[id number] 11:05 [employer] MEDICAL SHEATH, FR5.5 PRELUDE 11CM FR 5 [id number] Used [id number] 11:21 [employer] MEDICAL SHEATH, FR6.5 PRELUDE 11CM FR 6.5 [id number] Used *[id number] 11:05 [employer] MEDICAL WIRE, 3MMJ .035 180CM 180CM Used *[id number] 11:05 NAMIC MANIFOLD, 4 PORT * Used *[id number] 11:05 NYCOMED OMNIPAQUE, 350 MG, 150ML 150ML [id number] Used 11:18 NYCOMED OMNIPAQUE, 350 MG, 150ML 150ML [id number] Used [id number] 11:05 [employer] MEDICAL BLANKET,WARM AIR CCL * Used *[id number] Equipment Model, Serial, Lot Number and Expiration Data Description Model Number Serial Number Lot Number Expiration Date STENT, 3.0 15MM JAYLYN [id number] 06-04-2018 History: Current Medications Medication Dosage/Unit Route Frequency Last Date/Time Taken Beta Donn ASA History: Allergies Allergy 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 History: Risk Factors Family History of Hypertension Dyslipidemia Previous [place] Previous Heart Failure Premature CAD Yes Yes Yes Yes No Prior Valve Prior PCI Prior PCIDate Prior CABG Prior CABGDate Surgery No Yes 02/15/2011 Yes 02/16/2012 Cerebrovascular Peripheral Artery Chronic Lung On Dialysis Diabetes Disease Disease Disease No No No No No History: Risk Factors Selection Items Current Smoker History: Symptoms/Diagnosis Selection Items Chest pain SOB History: Stress Tests Stress or Imaging Studies Performed No History: Other Current Smoker Method Packs a Day Years Used Pack Years Yes Cigarettes 1 40 40 Labs Hgb (g/dl) Hct (%) RBC (MIL/MM3) WBC (l/cumm) Platelets (thousands) 11.60-17.00 35.00-51.00 4.00-5.90 4.00-11.00 150.00-450.00 12.9 38.4 4.1 11.1 338 Glucose (mg/dl) BUN (mg/dl) Creatinine (mg/dl) BUN:Creatinine (1:x) 74.00-106.00 7.00-18.00 0.50-1.30 10.00-20.00 128 7 0.6 11.7 Na (meq/l) K (meq/l) Cl (meq/l) CO2 (mmol/L) Ca (mg/dl) 136.00-145.00 3.50-5.10 98.00-107.00 21.00-32.00 8.50-10.10 136 3.1 101 27 8.4 PT (sec) PTT (sec) INR (PTT:PT) 9.80-11.60 24.30-30.10 0.90-1.10 10.6 31.3 1 Troponin I (ng/ml) CPK (u/l) CPK-MB (ng/ML) 0.02-0.05 26.00-308.00 0.50-3.60 28.7 110 8.7 Medication Medication Total Dose (Bolus/Oral) Medication Total Dosage/Unit 1% XYLOCAINE 20 mL BRILLINTA 180 mg FENTANYL 25 mcg HEPARIN 43120 units LASIX 20 mg NTG (IC) 150 mcg VERSED 0.5 mg Medications (Bolus/Oral) Medication Time Given Dosage/Unit Administered By Reason 11/29/2016 10:58:00 VERSED 0.5 mg Rosalio Davila AM 0.5 mg VERSED given in lab by Rosalio Davila RN via Peripheral IV. 11/29/2016 10:59:00 FENTANYL 25 mcg Rosalio Davila AM 25 mcg FENTANYL given in lab by Rosalio Davila RN via Peripheral IV. 11/29/2016 11:01:35 1% XYLOCAINE 20 mL Aftab Avila AM 20 mL 1% XYLOCAINE given by Aftab Avila in Right Groin via Subcutaneous. 11/29/2016 11:15:13 HEPARIN 5500 units Maxine Ferraro AM 5500 units HEPARIN given by Maxine Ferraro RN via Peripheral IV. 11/29/2016 11:32:00 HEPARIN 2500 units Rosalio Davila AM 2500 units HEPARIN given in lab by Rosalio Davila RN via Peripheral IV. 11/29/2016 11:46:17 HEPARIN 2500 units Maxine Ferraro AM 2500 units HEPARIN given by Maxine Ferraro RN via Peripheral IV. 11/29/2016 11:49:29 LASIX 20 mg Maxine Ferraro AM 20 mg LASIX given by Maxine Ferraro RN via Peripheral IV. 11/29/2016 11:58:37 NTG (IC) 150 mcg Aftab Avila AM 150 mcg NTG (IC) given in lab by Aftab Avila via Intra-coronary. 11/29/2016 12:01:21 HEPARIN 2000 units Maxine Ferraro 2000 units HEPARIN given in lab by Maxine Ferraro RN via Peripheral IV. 11/29/2016 12:05:42 BRILLINTA 180 mg Maxine Ferraro PM 180 mg BRILLINTA given in lab by Maxine Ferraro, RN in Per mouth via Oral. Medication (Drip) Medication Time Given Dosage/Unit Concentration/Unit Diluent (ml) Solution 11/29/2016 10:36:33 IV Solutions 0 mL (IV) 500 NaCl .9 AM Patient arrived on IV Solutions in Right Forearm via Peripheral IV. Pump/Drip Flow = 20 ml/hr using N aCl .9. Initial Case Assessment Circulatory - Right Pulses Dorsalis Pedis Femoral 2 2 Scale (0,1,2,3,4,d) Circulatory - Left Pulses Dorsalis Pedis Femoral 1 1 Scale (0,1,2,3,4,d) Circulatory - Lower Extremities Color Lower Right Color Lower Left Normal Normal Final Case Assessment Cardiovascular HR Rhythm NIBP Chest Pain 100 REG 132/87 0 Edema Present Skin color Skin None Normal Warm Circulatory - Right Pulses Dorsalis Pedis Femoral 2 2 Scale (0,1,2,3,4,d) Circulatory - Left Pulses Dorsalis Pedis Femoral 1 1 Scale (0,1,2,3,4,d) Circulatory - Lower Extremities Color Lower Right Color Lower Left Normal Normal Neurological State Oriented to time-place- Alert Moves all extremities person Respiration - General Respiration Rate SpO2 (%) O2 (lpm) (B/min) 22 95 15 Comment: STILL ON SIMPLE FACE MASK Chronological Log Time Study Chronological Log 10:36:21 Patient arrived via Bed. 10:36:22 Patient Name, D.O.B, / Armband Verified By R.N. 10:36:22 Consent signed by the physician and the patient and verified by the Network Services Project Manager staff. 10:36:23 Pre-op and post- op instructions given; patient acknowledges understanding of instructions. 10:36:28 Patient has been NPO for Less than 6Hrs. 10:36:29 Skin Breakdown-none 10:36:32 A # 20 IV was noted in the Forearm (left). Grade = 0 10:36:33 Patient arrived on IV Solutions in Right Forearm via Peripheral IV. Pump/Drip Flow = 20 ml/ hr using NaCl .9. 10:36:34 History and physical on the chart or being dictated. Assessment: Initial Case Right Pulses: William Ped=2, Femoral=2 10:36:35 Left Pulses: William Ped=1, Femoral=1 Lower Right Extremities: Color=Normal Lower Left Extremities: Color=Normal 10:36:38 Right groin prepped with 2% chlorhexidine, and draped after a 3 min. waiting time. 10:36:40 MD arrived. Vitals capture started with the following parameters, Patient=Adult, Interval=5 min, Initial Pr lwmism=895 mmHg, 10:45:01 Deflation Rate=5 mmHg, Cuff placed on Right Arm 10:45:45 HR=97 bpm, RAGV=912/97 mmhg, SpO2=97 %, Resp=24 B/min, Pain=0, Kole=10, Jasso=2 10:50:46 HR=94 bpm, PPMW=132/84 mmhg, SpO2=96.0 %, Resp=20 B/min, Pain=0, Kole=10, Jasso=2 10:52:44 Pressure channel 1 zeroed. 10:52:50 Reference ECG taken 10:52:56 A # 20 IV was noted in the Forearm (right). Grade = 0 saline locked 10:55:45 HR=97 bpm, AWWF=561/90 mmhg, SpO2=96.0 %, Resp=20 B/min, Pain=0, Kole=10, Jasso=2 10:58:00 0.5 mg VERSED given in lab by Rosalio Davila, RN via Peripheral IV. 10:59:00 25 mcg FENTANYL given in lab by Rosalio Davila, SANDI via Peripheral IV. Time Out. Correct patient, correct procedure, correct physician, power injector loaded, or not loaded with contrast with 11:00:00 surgical team present. Time Out Concurred by MD and individual staff in procedure. 11:00:05 Case Start 11:00:44 HR=96 bpm, NRMD=498/87 mmhg, SpO2=97.0 %, Resp=22 B/min, Pain=0, Kole=10, Jasso=2 11:01:35 20 mL 1% XYLOCAINE given by Aftab Avila in Right Groin via Subcutaneous. 11:03:39 Access site was Right Femoral Artery. 11:04:33 A wire was inserted via Fem Art (right). 11:04:38 A SHEATH, FR5.5 PRELUDE 11CM FR 5 was advanced into the Fem Art (right) using the Percutane ous technique. Recorded Pressure: Ao, HR=94, Condition=Condition 1 11:05:00 (Aorta) Ao 133/73/96 11:05:45 HR=96 bpm, UXBM=053/79 mmhg, SpO2=97.0 %, Resp=20 B/min, Pain=0, Kole=10, Jasso=2 A JR 4.0 INFINITI CATHETER FR 5 was advanced over a wire. OMNIPAQUE, 350 MG, 150ML 150ML was us ed for 11:06:16 injections. 11:07:08 heparin discontinued Recorded Pressure: LV, HR=91, Condition=Condition 1 11:07:28 (Left Ventricle) LV 122/7/23 Recorded Pressure: LV, Ao, HR=91, Condition=Condition 1 11:07:41 (Left Ventricle) LV 125/5/20, (Aorta) Ao 122/74/96 Recorded Pressure: Ao, HR=85, Condition=Condition 1 11:08:09 (Aorta) Ao 113/69/89 11:08:17 The RCA was injected and visualized at various angles. OMNIPAQUE, 350 MG, 150ML 150ML used . 11:08:47 pt arrived on simple face mask on 15 liters of oxygen 11:09:39 The SVG-DIAG was injected and visualized at various angles. OMNIPAQUE, 350 MG, 150ML 150ML used. 11:10:44 HR=94 bpm, JBAJ=701/81 mmhg, SpO2=97.0 %, Resp=24 B/min, Pain=0, Kole=10, Jasso=2 11:11:55 The SVG-RCA was injected and visualized at various angles. OMNIPAQUE, 350 MG, 150ML 150ML u sed. 11:15:13 5500 units HEPARIN given by Maxine Ferraro, SANDI via Peripheral IV. 11:15:41 HR=96 bpm, OEDQ=775/82 mmhg, SpO2=98.0 %, Resp=20 B/min, Pain=0, Kole=10, Jasso=2 11:16:42 The RAMIREZ-LAD was injected and visualized at various angles. contrast used. 11:17:10 Catheter was removed A JL 4.0 INFINITI CATHETER FR 5 was advanced over a wire. OMNIPAQUE, 350 MG, 150ML 150ML was us ed for 11:17:41 injections. 11:19:18 The LCA was injected and visualized at various angles. OMNIPAQUE, 350 MG, 150ML 150ML used . 11:20:44 Catheter was removed 11:20:47 HR=97 bpm, APTO=781/76 mmhg, SpO2=97.0 %, Resp=20 B/min, Pain=0, Kole=10, Jasso=2 A SHEATH, FR6.5 PRELUDE 11CM FR 6.5 was exchanged in the Fem Art (right). This was necessary in order to 11:20:56 accomodate a larger catheter. A MPA-1 GUIDE CATHETER FR 6 was advanced over a wire. OMNIPAQUE, 350 MG, 150ML 150ML was used f or 11:21:53 injections. 11:23:00 The SVG-OM was injected and visualized at various angles. OMNIPAQUE, 350 MG, 150ML 150ML us ed. 11:25:43 HR=98 bpm, CZDZ=830/79 mmhg, Resp=24 B/min, Pain=0, Kole=10, Jasso=2 11:26:07 Activated Clotting Time Drawn 11:26:13 A WIRE, ASAHI PROWATER 180CM 180CM was inserted via Fem Art (right). 11:30:45 HR=87 bpm, UNLA=004/88 mmhg, Resp=20 B/min, Pain=0, Kole=10, Jasso=2 11:30:58 ACT (Normal Range 90-180) = 214 11:31:11 Interventional wire has crossed the lesion A BALLOON, 2.0 X 10MM EUPHORA 10MM was inserted over WIRE, ASAHI PROWATER 180CM 180CM via the S VG- 11:31:49 RCA. 11:32:00 2500 units HEPARIN given in lab by Rosalio Davila, RN via Peripheral IV. A BALLOON, 2.0 X 10MM EUPHORA 10MM over a WIRE, ASAHI PROWATER 180CM 180CM in the SVG-RCA was i nflated 11:32:25 using a 30 GRADY INDEFLATOR at 8 grady for 15 sec. 11:33:00 Balloon Removed. 11:35:00 A WIRE, SPIDERFX 4.0 X 320/190CM 40 X 320CM was inserted via Fem Art (right). 11:35:25 prowater Wire removed 11:35:45 SPIDER FILTER WIRE DEPLOYED 11:35:46 HR=96 bpm, VMFS=358/90 mmhg, SpO2=95.0 %, Resp=20 B/min, Pain=0, Kole=10, Jasso=2 A STENT, 3.0 15MM JAYLYN 3.0 15MM was advanced through a MPA-1 GUIDE CATHETER FR 6 over a WIRE, S PIDERFX 11:40:40 4.0 X 320/190CM 40 X 320CM. 11:40:45 MZ=842 bpm, ORVC=170/93 mmhg, SpO2=95 %, Resp=20 B/min, Pain=0, Kole=10, Jasso=2 11:42:18 ACT (Normal Range 90-180) = 234 11:44:10 Stent not deployed. Stent removed and intact. 11:45:48 KM=012 bpm, AZMG=722/99 mmhg, SpO2=95 %, Resp=20 B/min, Pain=0, Kole=10, Jasso=2 11:46:17 2500 units HEPARIN given by Maxine Ferraro RN via Peripheral IV. 11:49:29 20 mg LASIX given by Maxine Ferraro, SANDI via Peripheral IV. 11:50:45 TA=092 bpm, RMVO=879/94 mmhg, SpO2=94 %, Resp=20 B/min, Pain=0, Kole=10, Jasso=2 A STENT, 3.0 15MM JAYLYN 3.0 15MM was advanced through a MPA-1 GUIDE CATHETER FR 6 over a WIRE, S PIDERFX 11:54:15 4.0 X 320/190CM 40 X 320CM. 11:55:46 XX=749 bpm, HMON=885/94 mmhg, SpO2=95 %, Resp=20 B/min, Pain=0, Kole=10, Jasso=2 11:56:16 ACT (Normal Range 90-180) = 265 A STENT, 3.0 15MM JAYLYN 3.0 15MM was deployed using a 30 GRADY INDEFLATOR at 12 atmospheres for 15 seconds in 11:56:43 the SVG-RCA. 11:58:37 150 mcg NTG (IC) given in lab by Aftab Avila via Intra-coronary. 12:00:47 EQ=015 bpm, FLZQ=762/87 mmhg, SpO2=95 %, Resp=20 B/min, Pain=0, Kole=10, Jasso=2 12:01:21 2000 units HEPARIN given in lab by Maxine Ferraro, RN via Peripheral IV. 12:02:19 SPIDER Wire removed 12:03:27 The SVG-RCA was injected and visualized at various angles. OMNIPAQUE, 350 MG, 150ML 150ML u sed. 12:03:54 Catheter was removed Assessment: Final Case, UF=981 BPM, Rhythm=REG, ACBA=825/87 mmhg, Chest Pain=0, Edema=None, Color=Normal, Skin = Warm Right Pulses: William Ped=2, Femoral=2 Left Pulses: William Ped=1, Femoral=1 12:03:58 Lower Right Extremities: Color=Normal Lower Left Extremities: Color=Normal Neurological: State=Alert, Ox3, [place] Respiration: Resp=22 B/min, SpO2=95 %, O2=15 lpm, Comment=STILL ON SIMPLE FACE MASK 12:04:54 Catheter(s) removed without difficulty 12:04:55 In the Fem Art (right) the SHEATH, FR6.5 PRELUDE 11CM FR 6.[address] by Dony Livingston RCIS(BS). 12:05:03 Case End 12:05:05 Sterile dressing applied to site 12:05:06 No case complications noted. 12:05:07 Cine recording checked. 12:05:10 Bedside Report will be given. 12:05:11 Contrast Scanned 12:05:14 A Left Heart Cath was performed. 12:05:42 180 mg BRILLINTA given in lab by Maxine Ferraro, RN in Per mouth via Oral. 12:06:25 PW=606 bpm, JKNO=975/107 mmhg, SpO2=95 %, Resp=20 B/min, Pain=0, Kole=10, Jasso=2 12:10:49 LC=848 bpm, ZSVT=080/92 mmhg, SpO2=95 %, Resp=20 B/min, Pain=0, Kole=10, Jasso=2 12:13:38 PT GOING TO [facility] WITH SHEATH SUTURED IN RIGHT GROIN. LUANA TO BE CONNECTED IN [facility] End Study - Contrast Media Used In Study Contrast Total Opened (mL) Total Used (mL) Total Wasted (mL) Omnipaque 180 180 0 End Study - Maximum Contrast Load Max Contrast Load (mL) 691.7 End Study - Radiation Exposure Fluoro Time (minutes) 13.2 End Study - Patient Disposition Complications Transferred To Interventional Outcome No Critical Care Bed successful
[2016-11-29] MEDS ORDERED: IOHEXOL 350 MG/ML 100 ML BTL (for Cath Lab) OTHER ONE (12:30)
[2016-11-29] MEDS ORDERED: MISC INFORMATION XX ONE (12:30)
[2016-11-29] MEDS ORDERED: LABETALOL HCL 100 MG/20 ML VIAL IV PUSH ONE ×2 (12:45→13:00)
--- NOTE | 2016-11-29 14:00 | MB ---
cc: AFTAB GONGORA DO DATE OF CONSULTATION: 11/29/2016. REASON FOR CONSULTATION: Elevated troponin. HISTORY OF PRESENT ILLNESS Hector Crandall is a pleasant 61-year-old male who originally presented to the [facility] Emergency Room due to abdominal pain. While there, he was diagnosed with a sigmoid diverticulitis with a contained perforation. He was being treated with antibiotics. Apparently yesterday on November 28, 2016 he started having chest pain. EKG was done and there was some mix-up on which EKG was done and there were questionable S-T elevations in the inferior lead. This then caught around 2 hours later. At that time, the patient was no longer having chest pain and EKG had normalized. I had him transferred over to [facility] and placed on a heparin drip. Overnight he was stable without any chest pain but was noted to be getting more short of breath and his oxygenation requirements. On seeing him, he is currently without chest pain and has mild shortness of breath on 15 liters of oxygen. Apparently the patient has been getting IV fluids at a high rate for the past few days. PAST MEDICAL HISTORY: 1. Coronary artery disease. 2. Dyslipidemia. 3. History of sigmoid diverticulosis, diverticulitis 4. Paroxysmal atrial fibrillation currently in sinus rhythm. PAST SURGICAL HISTORY: 1. CABG x4 with unknown coronary anatomy and grafts. 2. Coronary artery disease with three previous stents all done before his coronary artery bypass grafting. 3. Appendectomy. 4. Circumcision. ALLERGIES: 1. Ipratropium. 2. Protein hydrolysate. MEDICATIONS: Denies. FAMILY HISTORY: Mother from emphysema. Father from atherosclerotic vascular disease. SOCIAL HISTORY: The patient smoked one pack per day for 40 years. Rarely uses alcohol. Denies drug abuse. REVIEW OF SYSTEMS Fourteen systems were reviewed including osteopathic with pertinent positives and negatives as above; otherwise negative. PHYSICAL EXAMINATION: VITAL SIGNS: Temperature 98.4, heart rate 86, blood pressure 131/78, respirations 25, pulse ox 91% on 15 meters. GENERAL: In general the patient appears well and in no acute distress, alert awake and oriented x3. HEAD, EYES, EARS, NOSE, THROAT: Extraocular muscles intact. Mucous membranes moist. NECK: Neck is supple. Mild JVD at 45 degrees. Carotid upstroke is brisk in nature. HEART: Heart is regular rate and rhythm. Positive first and second heart sounds with no murmurs, gallops or rubs. LUNGS: Lungs have decreased breath sounds bilaterally with rales noted at the bases. ABDOMEN: The abdomen is soft, nontender and nondistended. No organomegaly noted. EXTREMITIES: Show no clubbing, cyanosis or edema. Femoral and distal pulses intact bilaterally. NEUROLOGIC: No focal deficits. SKIN: Warm, dry and intact. Osteopathic with no kyphoscoliosis, lordosis or paraspinal tender points. LABORATORY FINDINGS: Hemoglobin 13.2, hematocrit 38.2, platelets 327,000. Potassium 3.3, BUN 7, creatinine 0.56. Troponin 28.7. Total cholesterol 190, LDL 130, HDL 29, triglycerides 152. Electrocardiogram (November 28, 2016 at 1503): atrial fibrillation with rapid ventricular response, aberrant conduction versus PVCs, nonspecific ST-T wave changes. IMPRESSION: 1. Transient S-T elevation with chest pain which has since resolved. 2. NSTEMI. 3. Coronary artery disease with a history of three coronary artery stents and then coronary artery bypass grafting (around ten years ago in [place], [place]). 4. Dyslipidemia. 5. Paroxysmal atrial fibrillation. 6. Tobacco abuse. 7. Sigmoid diverticulitis. RECOMMENDATIONS: 1. Mr. Crandall appears to have an extensive history of coronary artery disease as well as chest pain with an elevation of his S-T segments. This has since resolved but because of his chest pain, abnormal EKG and elevated troponin, he is recommended cardiac catheterization. 2. Risks, benefits, and alternatives have been explained to him and he consents to such. 3. Apparently he has been getting an excessive amount of fluids and at this time, he has an unknown ejection fraction. Most likely during or after the catheterization he will need diuresis. 4. I spoke to him for greater than three minutes about tobacco cessation. He states that he is willing to quit. 5. Further recommendations will be made based on the hospital course. Thank you for allowing me to see Hector Crandall. If there are any questions, please do not hesitate to call. Aftab Gongora DO VGP/JCC /1:23 PM /1:41 PM
--- NOTE | 2016-11-29 14:36 | MA ---
cc: AFTAB GONGORA DO DATE: 11/29/2016. OPERATIVE PROCEDURE PERFORMED: Left heart catheterization, coronary angiogram, bypass angiogram, spider filter distally, valdemar drug-eluting stent (3 x 15) to the SVG to PDA, moderate sedation 60 minutes. PREPROCEDURE DIAGNOSIS: 1. NSTEMI. 2. Acute systolic heart failure. 3. Coronary artery disease. 4. History of CABG x4. POSTPROCEDURE DIAGNOSIS: 1. NSTEMI. 2. Acute systolic heart failure. 3. Coronary artery disease status post valdemar drug-eluting stent (3 x 15) to the saphenous vein graft to the PDA. 4. History of CABG x4 (4/4 grafts patent). MEDICATIONS: 1. Versed 0.5 milligrams. 2. Fentanyl 25 micrograms. 3. Heparin 12,500 units. 4. Lasix 20 milligrams. 5. Nitro 200 micrograms IC. 6. Brilinta 180 milligrams CONTRAST USED: 180 mL. FLUOROSCOPY: 13.2 minutes. SEDATION: Moderate sedation 60 minutes. ESTIMATED BLOOD LOSS: 20 cc. PROCEDURAL SUMMARY: Hector Crandall is a pleasant 61-year-old male who originally presented to [facility] and was found to have diverticulitis. On November 28, 2016 he had some chest pain and an EKG was done. Apparently after this it was caught that there might be S-T elevations and so the patient was seen at that time and was no longer having pain. EKG was repeated showing resolution of the S-T elevation. It was felt that due to a the transient S-T elevation, NSTEMI and his symptoms that he should undergo cardiac catheterization. Risks, benefits and alternatives were explained to him, and he consented as such. DESCRIPTION OF THE PROCEDURE IN DETAIL: He was brought to lab and prepped in the usual sterile fashion. Right femoral artery was accessed using a modified Seldinger technique and placement of a 5-[place] sheath. This was easily aspirated and flushed. A JR-4 was advanced over a J-wire to the ascending aorta and across the aortic valve for measurement of left ventricular pressures. This was pulled back across the aortic valve showing no significant gradient of aortic stenosis. JR-4 was used for selective angiography of the [place] right coronary artery, the SVG to the obtuse marginal, the SVG to the diagonal, the SVG to the PDA, and RAMIREZ to LAD. The JR-4 was exchanged out for a JL-4 which was used for selective angiography of the [place] left coronary artery system. Please see notes below for intervention. Postprocedure the sheath was sewn in place. The patient was cardiovascularly stable upon leaving the label maker. FINDINGS: Left main 100% occluded. LAD 100% occluded in the proximal portion. Left circumflex 100% occluded in the proximal portion. RCA 100% occluded in the proximal to midportion. RAMIREZ to LAD widely patent with good runoff distally and no significant disease. RAMIREZ antegrade and retrogradely fills the LAD. SVG to diagonal patent with no significant disease. SVG to obtuse marginal patent with no significant disease. SVG to PDA patent with a 99% lesion in the midportion. Left ventricular end diastolic pressure 28%. INTERVENTION: Because of the patient's symptoms, elevated troponin and EKG changes, it was felt that the lesion in his vein graft to his PDA should be intervened on. A 5-[place] sheath was exchanged out for a 6-[place] sheath. The patient was given additional heparin as an anticoagulant. A multipurpose guide was engaged into the vein graft. The Prowater was advanced across the lesion with ease. Due to the tightness of the lesion in an inability to place the spider filter distally, a compliant balloon (2 x 10) was used to pre-dilate the lesion. After this, a spider 4 mm filter was placed distally. The [place] wire was removed. The patient was getting more significantly short of breath most likely due to the fluids over the past few days for his diverticulosis and so he was given Lasix IV at this time. An valdemar drug-eluting stent (3 x 15)) was then placed over the lesion and inflated. Spider filter was removed. Final angiography shows a well opposed stent with no perforations dissections and good flow throughout the [place] PDA distally. The multipurpose catheter was removed. Sheath was sewn in place. This will be removed once ACTs are in an appropriate range. He was given of Brilinta 180 milligrams. IMPRESSIONS: 1. Transient S-T elevation inferiorly, which has since resolved. 2. NSTEMI. 3. Coronary artery disease, history of CABG x4 (4/4 grafts patent). 4. NSTEMI status post Resolute drug-eluting stent (3 x 15) to the SVG to the PDA. 5. Acute systolic heart failure most likely due to overhydration. RECOMMENDATIONS: 1. Mr. Crandall underwent drug-eluting stent placement in his vein graft to his RCA, and because of this, he will be placed on aspirin indefinitely and Brilinta for least 12 months. 2. He is significantly short of breath, and this is most likely due to the amount of fluids that he has gotten over the past few days. He was given 20 milligrams of Lasix IV in the label maker and this was discussed with nursing and the sweet pickle maker and he may need further diuresis today. During his time the label maker, he put out over 1 liter of fluids. 3. Eventually he will need to be started on heart failure medicines including LOUISE inhibitor therapy and beta-williams therapy at least. 4. We will check an echo to look at his overall left ventricular function, cardiac structure and possible valvulopathies. Further recommendations will be made based on the hospital course. Thank you for allowing me to see Hector Crandall, and if there are any questions, please do not hesitate to call. Aftab Gongora DO AMELIA/JCC /1:35 PM /2:17 PM
[2016-11-29] MEDS: ACETAMINOPHEN/HYDROcodone 325 MG/5 MG TAB PO PRN (16:18)
[2016-11-29] MEDS: REMOVE OLD PATCH T-DERMAL SCH (21:00)
[2016-11-29] MEDS ORDERED: NICOTINE 14 MG/24 HR PATCH TOPICAL SCH (21:00)
[2016-11-29] MEDS: TICAGRELOR 90 MG TAB PO SCH (21:34)
[2016-11-29] MEDS: CARVEDILOL 3.125 MG TAB PO SCH (21:35)
[2016-11-30] VITALS (22 sets, daily range): BP systolic 108–144; BP diastolic 65–86; PULSE 81–98; RESP 13–26; TEMP 98.3–98.9; O2SAT 94–99
[2016-11-30] MEDS: metroNIDAZOLE 500 MG TAB PO SCH ×5 (01:15→23:22)
[2016-11-30] MEDS: CHLORHEXIDINE GLUCONATE 2 % 1 PACK (2 CLOTHS) TOP SCH (01:16)
[2016-11-30] MEDS: ACETAMINOPHEN/HYDROcodone 325 MG/5 MG TAB PO PRN (01:20)
[2016-11-30 04:05] LABS: AUTOMATED NEUTROPHIL # 9.5 TH/MM3 (1.8-7.7); BASOPHIL % 0.2 % (0.0-2.0); EOSINOPHIL % 0.3 % (0.0-4.0); HEMATOCRIT 36.8 % (39.0-51.0); HEMO FLAGS DIFF FINAL; LYMPHOCYTE # 0.9 TH/MM3 (1.0-4.8); MEAN CORPUSCULAR HEMOGLOBIN 32.1 PG (27.0-34.0); MEAN CORPUSCULAR HGB CONC 34.2 % (32.0-36.0); MONO % 11.2 % (0.0-8.0); NEUT % 80.3 % (16.0-70.0); PLATELET COUNT 331 TH/MM3 (150-450); RED BLOOD COUNT 3.91 MIL/MM3 (4.50-5.90); RED CELL DISTRIBUTION WIDTH 14.1 % (11.6-17.2); WHITE BLOOD COUNT 11.9 TH/MM3 (4.0-11.0)
[2016-11-30] MEDS: RESP: ALBUTEROL 2.5 MG/3 ML NEB (SCH) INH ×4 (04:07→20:49)
[2016-11-30 04:27] LABS: ANION GAP 6 MEQ/L (5-15); AST (GOT) 84 U/L (15-37); BICARBONATE 29.7 MEQ/L (21.0-32.0); BLOOD UREA NITROGEN 9 MG/DL (7-18); CHLORIDE 98 MEQ/L (98-107); GLOMERULAR FILTRATION RATE 113 ML/MIN (>89); POTASSIUM 3.3 MEQ/L (3.5-5.1); SODIUM (NA) 134 MEQ/L (136-145)
[2016-11-30 04:31] LABS: ALKALINE PHOSPHATASE 195 U/L (45-117); ALT (GPT) 25 U/L (12-78); TOTAL BILIRUBIN ADULT 0.5 MG/DL (0.2-1.0)
[2016-11-30] MEDS: HYDROmorphone HCL PF 1 MG/ML VIAL IV PUSH PRN ×3 (05:22→20:15)
[2016-11-30] MEDS: POTASSIUM CHLOR 20 MEQ PREMIX 100 ML IV PRN ×2 (07:49→10:37)
[2016-11-30] MEDS: CARVEDILOL 3.125 MG TAB PO SCH ×2 (08:48→20:15)
[2016-11-30] MEDS: CIPROFLOXACIN 750 MG TAB PO SCH ×2 (08:48→20:15)
[2016-11-30] MEDS: TAMSULOSIN HCL 0.4 MG CAP PO SCH (08:48)
[2016-11-30] MEDS: LISINOPRIL 10 MG TAB PO SCH (08:48)
[2016-11-30] MEDS: ASPIRIN 81 MG CHEW TAB CHEW SCH (08:49)
[2016-11-30] MEDS: SODIUM CHLORIDE 0.9% FLUSH 10 ML FLUSH IV FLUSH SCH ×2 (08:49→20:15)
[2016-11-30] MEDS: TICAGRELOR 90 MG TAB PO SCH ×2 (09:19→21:05)
--- NOTE | 2016-11-30 13:22 | HHI.CCPN ---
Subjective Remarks/Hospital Course History of Present Illness This is a 61-year-old male. Date of admission 11/24/2016. Date of consultation 11/28/2016. Past medical history includes coronary artery disease status post CABG 4 years ago in [facility], history of 3 coronary artery stents, atrial fibrillation currently normal sinus rhythm and history of diverticulosis. History of diverticulitis. Patient originally was admitted to [facility] with a three-day history of abdominal pain that was eventually diagnosed as sigmoid diverticulitis with contained perforation. 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 Patient was seen by Dr. Proctor/urology was contained from the perforated diverticulum. Recommended bladder placement 5 days and follow-up as an outpatient follow-up initiate tamsulosin 0.4 mg by mouth daily. Seen in consultation by Dr. Vela. Patient was placed on antibiotics is currently on oral ciprofloxacin and metronidazole. Is currently on normal diet. Currently denies any abdominal pain. At 10:30 today, patient expressed chest pressure 7/10 without radiation to the head neck or shoulder. This lasted about 30 minutes duration. This is relieved with IV morphine. EKG revealed A. fib with RVR with ST elevation in inferior leads II, III and aVF. This is eventually picked up and hospitalist was notified. Patient was placed on a heparin drip and a full dose aspirin. Cardiology was consulted and patient was transferred to [facility] for further evaluation treatment. Doesn't time, patient is currently normal sinus rhythm. EKG shows no ST elevation in the inferior leads. Patient denies chest pain, abdominal pain, nausea, vomiting, headache Subjective: 11/29: Afebrile. The patient had one episode of what is described as "chest pressure' with a VAS pain scale of 3/4, relieved with Dilaudid 1 mg this a.m.. Concurrently the patient was noted to have increasing oxygen requirements currently on facemask at 15 L to maintain an O2 saturation greater than 90%. Chest x-ray pending. Echo currently being performed. The patient remains NPO for pending cardiac catheterization this a.m.. 11/30: Cardiac catheterization with placement of stent SVG to PDA. No further episodes of angina, patient was diuresed and continues on nasal cannula at 3 L with saturation 97%. Objective Vital Signs Date Time Temp Pulse Resp B/P (MAP) Pulse Ox O2 Delivery O2 Flow Rate FiO2 11/30/16 09:43 96 Nasal Cannula 4.00 11/30/16 08:00 94 11/30/16 08:00 98.6 18 141/86 (104) Intake and Output 11/30/16 11/30/16 12/01/16 08:00 16:00 00:00 Intake Total 240 ml Output Total 550 ml Balance -310 ml Result Diagram: 11/30/16 0335 11/30/16 0335 Imaging Last Impressions Abdomen/Pelvis CT 11/24/16 0122 Signed Impressions: Service Date/Time: Thursday, November 24, 2016 02:09 - CONCLUSION: Prominent sigmoid diverticulitis with locally contained perforation, multiple small collections of extraluminal air and concomitant emphysematous cystitis Venancio Turner MD Objective Remarks BP 147/72 Pulse 87 O2 saturation 97% on 3 L/m GENERAL: 61-year-old male, resting in bed in no acute distress SKIN: Warm and dry. Well perfused HEAD: Atraumatic. Normocephalic. EYES: Pupils equal and round about 3 mm bilaterally and reactive. No scleral icterus. No injection or drainage. ENT: No nasal bleeding or discharge. Mucous membranes pink and moist. NECK: Trachea midline. No JVD. CARDIOVASCULAR: Regular rate and rhythm. S1, S2. No S4. 2/6 murmur systolic left sternal border. Prior midline sternotomy scars noticed RESPIRATORY: No accessory muscle use. Clear to auscultation. Breath sounds equal bilaterally. GASTROINTESTINAL: Abdomen soft, non-tender, nondistended. Hypoactive bowel sounds are appreciated MUSCULOSKELETAL: Extremities without significant peripheral edema. No obvious deformities. NEUROLOGICAL: Awake and alert. No obvious cranial nerve deficits. Motor grossly within normal limits. Five out of 5 muscle strength in the arms and legs. Normal speech. PSYCHIATRIC: Appropriate mood and affect; insight and judgment normal. Procedures 11/29-cardiac catheterization with stent placement A/P Assessment and Plan Neuro/Psych: Angina Abdominal pain Acetaminophen/hydrocodone 5/325 one to 2 tablets every 4 hours as needed for pain Morphine sulfate 2 mg every 4 hours when necessary breakthrough pain CV: Coronary artery disease status post CABG times for 10 years ago in [facility] History of 3 coronary artery stents Dyslipidemia History of A. fib with RVR/paroxysmal currently normal sinus rhythm Elevated troponin with resolved ST elevation inferior leads Troponin currently 6.4-> 25.3->28.7 today Received aspirin 325 mg 1. Schedule for 81 mg daily. Heparin drip initiated. Currently in metoprolol 5 mg IV every 6 hours. Consider LOUISE inhibitor or lipid-lowering in a.m. Cardiology following -Dr. Avila.- Cardiac catheterization scheduled 11/29 Current EKG - no ST elevation Lipid panel- LDL [id number], triglycerides 152, alkaline [id number] Keep patient nothing by mouth except for medications or cardiac catheterization today Patient reports previously on diuretics Lasix, discontinued secondary to loss of medical insurance will resume post cardiac catheterization, upon recommendations Resp: Tobacco abuse Respiratory insufficiency-resolved Nasal cannula to maintain saturations greater than or equal to 92% Patient has history of 1 pack a day smoking >30 years, patient counseled on smoking cessation Incentive spirometry while awake Albuterol neb treatment scheduled every 6 hours GI: Sigmoid diverticulitis - perforation CT abdomen/pelvis 11/24 revealed sigmoid diverticulitis/perforation with extension air 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 Evaluated by Dr. Vela general surgery. Currently on ciprofloxacin 750 mg by mouth twice a day and metronidazole 500 mg every 6 hours Currently on heart healthy diet Pantoprazole for GI prophylaxis Docusate suppository PRN for bowel regimen : Emphysematous bladder? Evaluated by Dr. Proctor /urology for possible length sinus bladder. Please note currently playing. He was started on tamsulosin 0.4 mg by mouth daily CT findings likely extension from contained perforation and not affecting the bladder. Endo: Sliding-scale insulin if indicated to maintain euglycemia TSH- 5.33 elevated, obtain T3, T4 level Renal: Creatinine currently within normal limits Monitor urine output Accurate I's and O's Heme: Leukocytosis Normocytic anemia Monitor CBC daily. Follow trends Currently on heparin drip ID: Sigmoid diverticulitis Continue ciprofloxacin 750 mg by mouth twice a day and metronidazole 500 mg by mouth every 6 hours per general surgery's recommendations FEN: Hypokalemia Replace electrolytes as clinically indicated IVF Normal saline 0.9 % decrease 75 cc/hour MSK: PT evaluate and treat Access - Utilize peripheral IV. Central line if indicated Prophylaxis - GI - pantoprazole - DVT - SCD Level 2 Plan transfer to [place] hospitalists plan transfer to CICU/ CPU, discussed with Dr. Avila Physician Marva Jeffery MD Nov 30, 2016 13:22
[2016-11-30] MEDS: BISACODYL 10 MG SUPP RECTAL PRN (14:07)
--- NOTE | 2016-11-30 14:22 | PD.CARD.PN ---
Subjective Subjective Remarks No events overnight Oxygenation much better No chest pain/SOB Objective Medications Current Medications Medications (Trade) Dose Ordered Sig/Dave Route Start Time Stop Time Status Last Admin (NS Flush) 2 ml UNSCH PRN IV FLUSH 11/24/16 03:15 11/29/16 08:00 (NS Flush) 2 ml BID IV FLUSH 11/24/16 09:00 11/30/16 08:49 (Zofran Inj) 4 mg Q6H PRN IVP 11/24/16 03:15 11/24/16 11:59 (Narcan Inj) 0.4 mg UNSCH PRN IV PUSH 11/24/16 03:15 (Dilaudid Pf Inj) 1 mg Q4H PRN IV PUSH 11/24/16 12:30 11/30/16 05:22 (Flomax) 0.4 mg DAILY PO 11/24/16 20:15 11/30/16 08:48 (Dulcolax Supp) 10 mg DAILY PRN RECTAL 11/26/16 15:00 11/30/16 14:07 (Cipro) 750 mg Q12HR PO 11/27/16 09:00 11/30/16 08:48 (Flagyl) 500 mg Q6HR PO 11/27/16 12:00 11/30/16 11:55 (Burton 5-325 Mg) 1 tab Q6H PRN PO 11/27/16 07:45 (Burton 5-325 Mg) 2 tab Q6H PRN PO 11/27/16 07:45 11/30/16 01:20 (Vasotec Inj) 1.25 mg Q6H PRN IV PUSH 11/28/16 10:00 (Prinivil) 10 mg DAILY PO 11/28/16 10:00 Future hold 11/30/16 08:48 (Nitrostat Sl) 0.4 mg Q5M PRN SL 11/28/16 10:15 (Aspirin Chew) 81 mg DAILY CHEW 11/29/16 09:00 11/30/16 08:49 (Tums Chew) 500 mg QID PRN PO 11/28/16 13:45 (Heparin Inj) 5,000 units UNSCH PRN IV PUSH 11/28/16 20:15 (Heparin Inj) 2,500 units UNSCH PRN IV PUSH 11/28/16 20:15 Heparin Sodium/ Dextrose 250 ml @ 10 mls/hr TITRATE PRN IV 11/28/16 14:30 11/28/16 15:26 Miscellaneous Information 1 Q361D XX 11/28/16 16:45 11/28/16 16:45 (Chlorhexidine 2% Cloth) 3 pack Taper DAILY@04 TOP 11/29/16 04:00 11/25/17 03:59 11/30/16 01:16 (Chlorhexidine 2% Cloth) 3 pack UNSCH PRN TOP 11/28/16 16:45 Potassium Chloride 100 ml @ 50 mls/hr Q2H PRN IV 11/28/16 17:00 Potassium Chloride 100 ml @ 50 mls/hr Q2H PRN IV 11/28/16 17:00 11/30/16 10:37 (K-Lyte Cl Eff) 50 meq UNSCH PRN PO 11/28/16 17:00 Potassium Chloride 100 ml @ 25 mls/hr UNSCH PRN IV 11/28/16 17:00 Potassium Chloride 100 ml @ 50 mls/hr Q2H PRN IV 11/28/16 17:00 11/29/16 08:01 Magnesium Sulfate 4 gm/Sodium Chloride 100 ml @ 50 mls/hr UNSCH PRN IV 11/28/16 17:00 (Mag-Ox) 800 mg UNSCH PRN PO 11/28/16 17:00 Magnesium Sulfate 2 gm/Sodium Chloride 100 ml @ 50 mls/hr UNSCH PRN IV 11/28/16 17:00 (K-Phos) 2,000 mg Q4H PRN PO 11/28/16 17:00 Sodium Phosphate 30 mmol/Sodium Chloride 250 ml @ 42 mls/hr UNSCH PRN IV 11/28/16 17:00 (K-Phos) 2,000 mg UNSCH PRN PO/TUBE 11/28/16 17:00 Potassium Phosphate 30 mmol/ Sodium Chloride 260 ml @ 42 mls/hr UNSCH PRN IV 11/28/16 17:00 (Albuterol Neb) 2.5 mg Q6HR NEB INH 11/29/16 08:30 11/30/16 09:42 (Brilinta) 90 mg BID PO 11/29/16 21:00 11/30/16 09:19 (Coreg) 3.125 mg Q12HR PO 11/29/16 21:00 11/30/16 08:48 (Habitrol 14 Mg Patch.24 Hr) 1 patch DAILY@2099 TOPICAL 11/29/16 21:00 Future Hold Miscellaneous Information 1 DAILY@2099 T-DERMAL 11/29/16 21:00 Vital Signs / I&O Vital Signs Date Time Temp Pulse Resp B/P (MAP) Pulse Ox O2 Delivery O2 Flow Rate FiO2 11/30/16 12:00 98.7 91 16 108/66 (80) 95 11/30/16 09:43 96 Nasal Cannula 4.00 11/30/16 08:00 94 11/30/16 08:00 98.6 94 18 141/86 (104) 98 11/30/16 07:00 98.6 94 26 141/86 (104) 98 11/30/16 07:00 Nasal Cannula 1.00 11/30/16 06:00 81 17 112/70 (84) 96 11/30/16 06:00 81 11/30/16 05:30 87 17 116/65 (82) 95 11/30/16 05:00 87 19 137/77 (97) 99 11/30/16 04:30 85 19 130/82 (98) 98 11/30/16 04:08 95 Nasal Cannula 5.00 11/30/16 04:00 98.3 90 25 136/84 (101) 96 11/30/16 04:00 90 11/30/16 03:30 84 21 129/81 (97) 96 11/30/16 03:00 84 20 121/76 (91) 96 11/30/16 02:30 84 14 127/76 (93) 96 11/30/16 02:00 89 21 144/81 (102) 94 11/30/16 02:00 89 11/30/16 01:00 92 15 131/84 (100) 96 11/30/16 00:30 93 15 132/71 (91) 97 11/30/16 00:00 93 11/30/16 00:00 93 13 111/71 (84) 97 11/29/16 23:30 94 14 127/77 (94) 95 11/29/16 23:00 102 28 148/92 (110) 97 11/29/16 22:30 102 23 145/82 (103) 95 11/29/16 22:00 101 11/29/16 22:00 101 22 128/81 (97) 94 11/29/16 21:30 100 31 128/76 (93) 94 11/29/16 21:00 106 39 126/66 (86) 94 11/29/16 20:30 103 28 137/81 (99) 95 11/29/16 20:30 96 Nasal Cannula 5.00 11/29/16 20:00 98.3 95 28 116/70 (85) 95 11/29/16 20:00 95 11/29/16 19:30 93 19 113/63 (80) 93 11/29/16 19:09 102 26 139/84 (102) 95 11/29/16 19:00 96 28 93 11/29/16 19:00 93 Nasal Cannula 6.00 11/29/16 18:00 108 11/29/16 18:00 108 31 126/68 (87) 92 11/29/16 17:30 93 Nasal Cannula 6.00 11/29/16 17:30 102 31 137/75 (95) 96 11/29/16 17:00 104 11/29/16 16:30 100 33 146/81 (102) 96 11/29/16 16:00 98.1 100 31 134/79 (97) 94 Arterial Line 11/29/16 16:00 100 11/29/16 15:30 99 26 143/72 (95) 95 11/29/16 15:00 96 21 135/80 (98) 94 134/64 (87) 11/29/16 15:00 96 11/29/16 14:30 100 21 121/57 (78) 91 I/O 11/29/16 11/29/16 11/29/16 11/30/16 11/30/16 11/30/16 07:00 15:00 23:00 07:00 15:00 23:00 Intake Total 1480 ml 500 ml 480 ml 240 ml Output Total 850 ml 875 ml 1900 ml 550 ml Balance 630 ml -375 ml -1420 ml -310 ml Intake Oral 480 ml 480 ml 240 ml IV Total 1000 ml 500 ml Output Urine Total 850 ml 875 ml 1900 ml 550 ml # Bowel Movements 0 Physical Exam GENERAL: NAD, AAOx3 SKIN: Warm and dry. HEAD: Atraumatic. Normocephalic. EYES: Pupils equal and round. No scleral icterus. No injection or drainage. ENT: No nasal bleeding or discharge. Mucous membranes pink and moist. NECK: Trachea midline. No JVD. CARDIOVASCULAR: Regular rate and rhythm. RESPIRATORY: No accessory muscle use. Decreased breath sounds bilaterally, mild wheezing, minimal rales GASTROINTESTINAL: Abdomen soft, non-tender, nondistended. Hepatic and splenic margins not palpable. MUSCULOSKELETAL: Extremities without clubbing, cyanosis, or edema. No obvious deformities. NEUROLOGICAL: Awake and alert. No obvious cranial nerve deficits. Motor grossly within normal limits. Five out of 5 muscle strength in the arms and legs. Normal speech. PSYCHIATRIC: Appropriate mood and affect; insight and judgment normal. Laboratory Laboratory Tests Test 11/30/16 03:35 White Blood Count 11.9 TH/MM3 Red Blood Count 3.91 MIL/MM3 Hemoglobin 12.6 GM/DL Hematocrit 36.8 % Mean Corpuscular Volume 94.0 FL Mean Corpuscular Hemoglobin 32.1 PG Mean Corpuscular Hemoglobin Concent 34.2 % Red Cell Distribution Width 14.1 % Platelet Count 331 TH/MM3 Mean Platelet Volume 7.3 FL Neutrophils (%) (Auto) 80.3 % Lymphocytes (%) (Auto) 8.0 % Monocytes (%) (Auto) 11.2 % Eosinophils (%) (Auto) 0.3 % Basophils (%) (Auto) 0.2 % Neutrophils # (Auto) 9.5 TH/MM3 Lymphocytes # (Auto) 0.9 TH/MM3 Monocytes # (Auto) 1.3 TH/MM3 Eosinophils # (Auto) 0.0 TH/MM3 Basophils # (Auto) 0.0 TH/MM3 CBC Comment DIFF FINAL Differential Comment Blood Urea Nitrogen 9 MG/DL Creatinine 0.71 MG/DL Random Glucose 125 MG/DL Total Protein 6.7 GM/DL Albumin 2.4 GM/DL Calcium Level 8.3 MG/DL Alkaline Phosphatase 195 U/L Aspartate Amino Transf (AST/SGOT) 84 U/L Alanine Aminotransferase (ALT/SGPT) 25 U/L Total Bilirubin 0.5 MG/DL Sodium Level 134 MEQ/L Potassium Level 3.3 MEQ/L Chloride Level 98 MEQ/L Carbon Dioxide Level 29.7 MEQ/L Anion Gap 6 MEQ/L Estimat Glomerular Filtration Rate 113 ML/MIN Assessment and Plan Problem List: (1) NSTEMI (non-ST elevated myocardial infarction) ICD Codes: I21.4 - Non-ST elevation (NSTEMI) myocardial infarction (2) CAD (coronary artery disease) ICD Codes: I25.10 - Atherosclerotic heart disease of [place] coronary artery without angina pectoris (3) Acute CHF ICD Codes: I50.9 - Heart failure, unspecified (4) Afib ICD Codes: I48.91 - Unspecified atrial fibrillation (5) Diverticulitis large intestine w/o perforation or abscess w/o bleeding ICD Codes: K57.32 - Diverticulitis of large intestine without perforation or abscess without bleeding Status: Acute Assessment and Plan 1) CAD/NSTEMI BA[place] to SVG to PDA ASA/Brilinta Will consider changing to Plavix when started on anti-coagulation for Afib Con't LOUISE-I/Coreg Will add Lipitor 2) Acute CHF Secondary to ischemic lesion along with excessive fluid Diuresed well, con't to diurese 3) 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
--- NOTE | 2016-11-30 16:41 | HHI.PR ---
cc: Gavin Vela MD Subjective Subjective Notes PROGRESS NOTE FOR SURGICAL ATTENDING, DR. GAVIN VELA Resting in bed Still with abdominal pain but improved Patient moved to [facility] on Wednesday due to NSTEMI and need for cardiac cath Objective Vitals/I&O Vital Signs Date Time Temp Pulse Resp B/P (MAP) Pulse Ox O2 Delivery O2 Flow Rate FiO2 11/30/16 12:00 98.7 91 16 108/66 (80) 95 11/30/16 09:43 Nasal Cannula 4.00 Labs Laboratory Tests Test 11/30/16 03:35 White Blood Count 11.9 Red Blood Count 3.91 Hemoglobin 12.6 Hematocrit 36.8 Mean Corpuscular Volume 94.0 Mean Corpuscular Hemoglobin 32.1 Mean Corpuscular Hemoglobin Concent 34.2 Red Cell Distribution Width 14.1 Platelet Count 331 Mean Platelet Volume 7.3 Neutrophils (%) (Auto) 80.3 Lymphocytes (%) (Auto) 8.0 Monocytes (%) (Auto) 11.2 Eosinophils (%) (Auto) 0.3 Basophils (%) (Auto) 0.2 Neutrophils # (Auto) 9.5 Lymphocytes # (Auto) 0.9 Monocytes # (Auto) 1.3 Eosinophils # (Auto) 0.0 Basophils # (Auto) 0.0 CBC Comment DIFF FINAL Differential Comment Blood Urea Nitrogen 9 Creatinine 0.71 Random Glucose 125 Total Protein 6.7 Albumin 2.4 Calcium Level 8.3 Alkaline Phosphatase 195 Aspartate Amino Transf (AST/SGOT) 84 Alanine Aminotransferase (ALT/SGPT) 25 Total Bilirubin 0.5 Sodium Level 134 Potassium Level 3.3 Chloride Level 98 Carbon Dioxide Level 29.7 Anion Gap 6 Estimat Glomerular Filtration Rate 113 Radiology Last 72 hours Impressions Chest X-Ray 11/29/16 0000 Signed Impressions: Service Date/Time: Tuesday, November 29, 2016 08:56 - CONCLUSION: No significant change in the nonspecific infiltrate in the right middle lobe. If the infiltrate does not resolve after appropriate medical therapy, recommend a noncontrast CT thorax for further evaluation. Primitivo Toribio MD Chest X-Ray 11/28/16 0000 Signed Impressions: Service Date/Time: Monday, November 28, 2016 17:00 - CONCLUSION: Right midlung airspace disease characteristic of atelectasis otherwise no evidence of acute process. Heron Garrett MD Last 48 hours Impressions Abdomen/Pelvis CT 11/24/16 0122 Signed Impressions: Service Date/Time: Thursday, November 24, 2016 02:09 - CONCLUSION: Prominent sigmoid diverticulitis with locally contained perforation, multiple small collections of extraluminal air and concomitant emphysematous cystitis Venancio Turner MD Cardiovascular: Regular Lungs: Clear Abdomen: Other (minimal LLQ tenderness with palpation; mildly distended ) Extremities: No edema A/P Problem List: (1) Left lower quadrant pain ICD Codes: R10.32 - Left lower quadrant pain Status: Acute (2) Diverticulitis large intestine w/o perforation or abscess w/o bleeding ICD Codes: K57.32 - Diverticulitis of large intestine without perforation or abscess without bleeding Status: Acute (3) Diverticulitis ICD Codes: K57.92 - Diverticulitis of intestine, part unspecified, without perforation or abscess without bleeding Status: Acute (4) Coronary artery disease ICD Codes: I25.10 - Atherosclerotic heart disease of [place] coronary artery without angina pectoris Status: Chronic (5) History of sternectomy ICD Codes: Z98.890 - Other specified postprocedural states Status: Chronic (6) Abnormal CT of the abdomen ICD Codes: R93.5 - Abnormal findings on diagnostic imaging of other abdominal regions, including retroperitoneum Status: Acute (7) Elevated white blood cell count ICD Codes: D72.829 - Elevated white blood cell count, unspecified Status: Acute (8) Emphysematous cystitis ICD Codes: N30.80 - Other cystitis without hematuria Status: Acute (9) Diverticulitis of small intestine with complication ICD Codes: K57.12 - Diverticulitis of small intestine without perforation or abscess without bleeding Status: Acute (10) Acute CHF ICD Codes: I50.9 - Heart failure, unspecified Status: Acute (11) NSTEMI (non-ST elevated myocardial infarction) ICD Codes: I21.4 - Non-ST elevation (NSTEMI) myocardial infarction Status: Acute (12) Afib ICD Codes: I48.91 - Unspecified atrial fibrillation Status: Acute (13) CAD (coronary artery disease) ICD Codes: I25.10 - Atherosclerotic heart disease of [place] coronary artery without angina pectoris Assessment and Plan 61 year old male with acute diverticulitis; found to have NSTEMI and transferred to [facility] for cardiac cath and stent placement -Stent placed yesterday ---now on Brillinta and ASA -Tolerating regular diet -Continue antibiotics -Timing of elective surgery will be complicated due to need for chronic anticoagulation s/p new cardiac stent placement -We will follow along with you Attending Statement PROGRESS NOTE FOR SURGICAL ATTENDING, DR. GAVIN VELA doing well after cardiac event had stent place and stabilized abd still sore left lower quad hopefully can clear this infection needs coloscopy in the near future I agree with above assessment and plan. The exam, history, and the medical decision-making described in the above note were completed with the assistance of the mid-level provider. I reviewed and agree with the findings presented. I attest that I had a [id number] encounter with the patient on the same day, and personally performed and documented my assessment and findings in the medical record. The following services were provided during this hospital visit: Chart data review, vital sign assessments/reviewing monitor data Review of consultations notes if present. Medication orders/review and/or management Ordering and/or reviewing lab tests Ordering and/or interpreting/reviewing x-rays and/or diagnostic studies Care of the patient and discussion of the patient with the care team Documentation time To help prompt me to consider important information that might be impacting today's encounter and assessment, information from prior notes written by myself or my colleagues may have been "brought forward/copy and pasted" into today's note. Problem Qualifiers (1) Coronary artery disease: (2) Acute CHF: Qualified Codes: I50.41 - Acute combined systolic (congestive) and diastolic ( congestive) heart failure Gabbi Blair Nov 30, 2016 16:41 Gavin Vela MD Nov 30, 2016 17:39
[2016-11-30] MEDS: ATORVASTATIN 80 MG TAB PO SCH (20:15)
[2016-11-30] MEDS: APIXABAN 5 MG TABLET PO SCH (20:15)
[2016-11-30] MEDS: REMOVE OLD PATCH T-DERMAL SCH (21:00)
[2016-12-01] VITALS (13 sets, daily range): BP systolic 100–145; BP diastolic 59–88; PULSE 77–98; RESP 17–54; TEMP 97.5–99.3; O2SAT 90–96
[2016-12-01] MEDS: CHLORHEXIDINE GLUCONATE 2 % 1 PACK (2 CLOTHS) TOP SCH
[2016-12-01] MEDS: HYDROmorphone HCL PF 1 MG/ML VIAL IV PUSH PRN (00:43)
[2016-12-01] MEDS: ACETAMINOPHEN/HYDROcodone 325 MG/5 MG TAB PO PRN ×3 (03:41→17:52)
[2016-12-01] MEDS: RESP: ALBUTEROL 2.5 MG/3 ML NEB (SCH) INH ×4 (03:46→20:52)
[2016-12-01] MEDS: metroNIDAZOLE 500 MG TAB PO SCH ×3 (05:18→17:52)
[2016-12-01 05:55] LABS: AUTOMATED NEUTROPHIL # 8.8 TH/MM3 (1.8-7.7); BASOPHIL % 0.3 % (0.0-2.0); EOSINOPHIL # 0.1 TH/MM3 (0-0.4); EOSINOPHIL % 1.1 % (0.0-4.0); HEMATOCRIT 35.8 % (39.0-51.0); HEMO FLAGS DIFF FINAL; LYMPH % 12.5 % (9.0-44.0); LYMPHOCYTE # 1.5 TH/MM3 (1.0-4.8); MEAN CORPUSCULAR HEMOGLOBIN 32.6 PG (27.0-34.0); MEAN CORPUSCULAR HGB CONC 34.7 % (32.0-36.0); MONO % 11.2 % (0.0-8.0); NEUT % 74.9 % (16.0-70.0); PLATELET COUNT 348 TH/MM3 (150-450); RED BLOOD COUNT 3.81 MIL/MM3 (4.50-5.90); RED CELL DISTRIBUTION WIDTH 14.1 % (11.6-17.2); WHITE BLOOD COUNT 11.8 TH/MM3 (4.0-11.0)
[2016-12-01 06:18] LABS: ANION GAP 8 MEQ/L (5-15); AST (GOT) 40 U/L (15-37); BICARBONATE 25.8 MEQ/L (21.0-32.0); BLOOD UREA NITROGEN 10 MG/DL (7-18); CHLORIDE 98 MEQ/L (98-107); GLOMERULAR FILTRATION RATE 119 ML/MIN (>89); MAGNESIUM 2.1 MG/DL (1.5-2.5); POTASSIUM 4.1 MEQ/L (3.5-5.1); SODIUM (NA) 132 MEQ/L (136-145)
[2016-12-01 06:28] LABS: ALKALINE PHOSPHATASE 180 U/L (45-117); ALT (GPT) 22 U/L (12-78); FREE T4 1.08 NG/DL (0.76-1.46); TOTAL BILIRUBIN ADULT 0.3 MG/DL (0.2-1.0)
[2016-12-01] MEDS: APIXABAN 5 MG TABLET PO SCH ×2 (08:50→21:00)
[2016-12-01] MEDS: CARVEDILOL 3.125 MG TAB PO SCH ×2 (08:50→20:59)
[2016-12-01] MEDS: CIPROFLOXACIN 750 MG TAB PO SCH ×2 (08:50→21:00)
[2016-12-01] MEDS: LISINOPRIL 10 MG TAB PO SCH (08:50)
[2016-12-01] MEDS: TAMSULOSIN HCL 0.4 MG CAP PO SCH (08:50)
[2016-12-01] MEDS: POTASSIUM PHOSPHATE MONOBASIC 500 MG TAB PO PRN ×2 (08:51→12:45)
[2016-12-01] MEDS: ASPIRIN 81 MG CHEW TAB CHEW SCH (08:51)
[2016-12-01] MEDS: SODIUM CHLORIDE 0.9% FLUSH 10 ML FLUSH IV FLUSH SCH ×2 (08:53→21:00)
[2016-12-01] MEDS ORDERED: CLOPIDOGREL 300 MG TAB PO ONE (09:00)
--- NOTE | 2016-12-01 10:46 | HHI.PR ---
Subjective Remarks Recovering well. Safe for transfer out of ICU. No complaints of respiratory distress. Oxygen saturations are remaining in the 90s thus far with oxygen weaning. Objective Vital Signs Date Time Temp Pulse Resp B/P (MAP) Pulse Ox O2 Delivery O2 Flow Rate FiO2 12/01/16 10:00 87 25 92 12/01/16 09:27 95 Nasal Cannula 3.00 12/01/16 09:00 91 30 94 12/01/16 08:00 98.2 77 22 116/67 (83) 95 12/01/16 08:00 Nasal Cannula 2.00 12/01/16 04:00 87 12/01/16 04:00 98.3 87 20 129/75 (93) 95 12/01/16 00:00 89 12/01/16 00:00 98.5 89 20 145/88 (107) 96 11/30/16 22:00 94 11/30/16 20:49 96 Nasal Cannula 3.00 11/30/16 20:00 98 11/30/16 20:00 98.7 98 20 119/77 (91) 95 11/30/16 20:00 Nasal Cannula 2.00 11/30/16 18:00 98 11/30/16 17:05 16 11/30/16 16:00 98.9 97 16 136/83 (100) 96 11/30/16 16:00 97 11/30/16 12:00 98.7 91 16 108/66 (80) 95 I/O 11/30/16 11/30/16 11/30/16 12/01/16 12/01/16 12/01/16 07:00 15:00 23:00 07:00 15:00 23:00 Intake Total 240 ml 200 ml 1419 ml 480 ml Output Total 550 ml 975 ml 400 ml Balance -310 ml 200 ml 444 ml 80 ml Intake Oral 240 ml 1419 ml 480 ml IV Total 200 ml Output Urine Total 550 ml 975 ml 400 ml # Bowel Movements 1 1 Result Diagram: 12/01/1644512/01/16445 Objective Remarks GENERAL: NAD, A&Ox3 HEAD: Normocephalic. NECK: Supple, trachea midline. No lymphadenopathy. EYES: No scleral icterus. No injection or drainage. CARDIOVASCULAR: Regular rate and rhythm without murmurs, gallops, or rubs. RESPIRATORY: Breath sounds equal bilaterally. No accessory muscle use. GASTROINTESTINAL: Abdomen soft, no distention. Abdominal tenderness without guarding. MUSCULOSKELETAL: No cyanosis, or edema. SKIN: Warm and dry. NEURO: No focal neurological deficitis. A/P Problem List: (1) Emphysematous cystitis ICD Code: N30.80 - Other cystitis without hematuria Status: Acute (2) Abnormal CT of the abdomen ICD Code: R93.5 - Abnormal findings on diagnostic imaging of other abdominal regions, including retroperitoneum Status: Acute (3) Elevated white blood cell count ICD Code: D72.829 - Elevated white blood cell count, unspecified Status: Acute (4) Left lower quadrant pain ICD Code: R10.32 - Left lower quadrant pain Status: Acute Assessment and Plan Assessment and plan 61-year-old male admitted secondary to diverticulitis with abscess and possible bladder fistula. Continue antibiotics. Follow vital signs. Labs reviewed. White blood cell count decreasing. Continue to monitor labs. Labs ordered. Telemetry are removed. Patient encouraged to ambulate. Sepsis Resolved. A. fib RVR Resolved Monitor for recurrence Follow on telemetry Etiology may have been related to ischemia Status post Myocardial infarction CAD History of CABG Status post catheter with stent placement Follow clinically Currently asymptomatic Follow on telemetry Cardiology following Acute diverticulitis Diverticular abscess Possible bladder fistula Clinically improving Continue as needed pain treatments Surgery following Urology following Continue Zosyn IV hydration No surgery planned Continue antibiotic treatments and monitoring Hyperlipidemia Check fasting lipid profile in a.m. Presently on dietary treatments DVT prophylaxis High risk of bleed SCDs Abdirahman Nina MD Dec 01, 2016 10:46
--- NOTE | 2016-12-01 10:53 | HHI.PR ---
cc: Gavin Vela MD Subjective Subjective Notes PROGRESS NOTE FOR SURGICAL ATTENDING, DR. GAVIN VELA Resting in bed; eating donuts No acute events overnight Objective Vitals/I&O Vital Signs Date Time Temp Pulse Resp B/P (MAP) Pulse Ox O2 Delivery O2 Flow Rate FiO2 12/01/16 10:00 87 25 92 12/01/16 09:27 Nasal Cannula 3.00 12/01/16 08:00 98.2 116/67 (83) Labs Laboratory Tests Test 11/30/16 19:45 12/01/16 04:46 Potassium Level 3.5 4.1 White Blood Count 11.8 Red Blood Count 3.81 Hemoglobin 12.4 Hematocrit 35.8 Mean Corpuscular Volume 94.0 Mean Corpuscular Hemoglobin 32.6 Mean Corpuscular Hemoglobin Concent 34.7 Red Cell Distribution Width 14.1 Platelet Count 348 Mean Platelet Volume 7.7 Neutrophils (%) (Auto) 74.9 Lymphocytes (%) (Auto) 12.5 Monocytes (%) (Auto) 11.2 Eosinophils (%) (Auto) 1.1 Basophils (%) (Auto) 0.3 Neutrophils # (Auto) 8.8 Lymphocytes # (Auto) 1.5 Monocytes # (Auto) 1.3 Eosinophils # (Auto) 0.1 Basophils # (Auto) 0.0 CBC Comment DIFF FINAL Differential Comment Blood Urea Nitrogen 10 Creatinine 0.68 Random Glucose 124 Total Protein 6.6 Albumin 2.4 Calcium Level 8.7 Phosphorus Level 2.3 Magnesium Level 2.1 Alkaline Phosphatase 180 Aspartate Amino Transf (AST/SGOT) 40 Alanine Aminotransferase (ALT/SGPT) 22 Total Bilirubin 0.3 Sodium Level 132 Chloride Level 98 Carbon Dioxide Level 25.8 Anion Gap 8 Estimat Glomerular Filtration Rate 119 Free Thyroxine 1.08 Thyroid Stimulating Hormone 3rd Gen 7.350 Radiology Last 72 hours Impressions Chest X-Ray 11/29/16 0000 Signed Impressions: Service Date/Time: Tuesday, November 29, 2016 08:56 - CONCLUSION: No significant change in the nonspecific infiltrate in the right middle lobe. If the infiltrate does not resolve after appropriate medical therapy, recommend a noncontrast CT thorax for further evaluation. Primitivo Toribio MD Chest X-Ray 11/28/16 0000 Signed Impressions: Service Date/Time: Monday, November 28, 2016 17:00 - CONCLUSION: Right midlung airspace disease characteristic of atelectasis otherwise no evidence of acute process. Heron Garrett MD Last 48 hours Impressions Abdomen/Pelvis CT 11/24/16 0122 Signed Impressions: Service Date/Time: Thursday, November 24, 2016 02:09 - CONCLUSION: Prominent sigmoid diverticulitis with locally contained perforation, multiple small collections of extraluminal air and concomitant emphysematous cystitis Venancio Turner MD Cardiovascular: Regular Lungs: Clear Abdomen: Other (minimal LLQ tenderness ) Extremities: No edema A/P Problem List: (1) Left lower quadrant pain ICD Codes: R10.32 - Left lower quadrant pain Status: Acute (2) Diverticulitis large intestine w/o perforation or abscess w/o bleeding ICD Codes: K57.32 - Diverticulitis of large intestine without perforation or abscess without bleeding Status: Acute (3) Diverticulitis ICD Codes: K57.92 - Diverticulitis of intestine, part unspecified, without perforation or abscess without bleeding Status: Acute (4) Coronary artery disease ICD Codes: I25.10 - Atherosclerotic heart disease of [place] coronary artery without angina pectoris Status: Chronic (5) History of sternectomy ICD Codes: Z98.890 - Other specified postprocedural states Status: Chronic (6) Abnormal CT of the abdomen ICD Codes: R93.5 - Abnormal findings on diagnostic imaging of other abdominal regions, including retroperitoneum Status: Acute (7) Elevated white blood cell count ICD Codes: D72.829 - Elevated white blood cell count, unspecified Status: Acute (8) Emphysematous cystitis ICD Codes: N30.80 - Other cystitis without hematuria Status: Acute (9) Diverticulitis of small intestine with complication ICD Codes: K57.12 - Diverticulitis of small intestine without perforation or abscess without bleeding Status: Acute (10) Acute CHF ICD Codes: I50.9 - Heart failure, unspecified Status: Acute (11) NSTEMI (non-ST elevated myocardial infarction) ICD Codes: I21.4 - Non-ST elevation (NSTEMI) myocardial infarction Status: Acute (12) Afib ICD Codes: I48.91 - Unspecified atrial fibrillation Status: Acute (13) CAD (coronary artery disease) ICD Codes: I25.10 - Atherosclerotic heart disease of [place] coronary artery without angina pectoris Assessment and Plan 61 year old male with acute diverticulitis; found to have NSTEMI and transferred to [facility] for cardiac cath and stent placement -s/p cardiac stent placement -Tolerating regular diet -Continue antibiotics---on PO -Consult to GI---patient will need outpatient colonoscopy in about 4-6 weeks -Timing of elective surgery will be complicated due to need for chronic anticoagulation s/p new cardiac stent placement -We will follow along with you Attending Statement PROGRESS NOTE FOR SURGICAL ATTENDING, DR. GAVIN VELA overall making progress almost no abd pain at this point will need outpt colonoscopy in 4 to 6 weeks I agree with above assessment and plan. The exam, history, and the medical decision-making described in the above note were completed with the assistance of the mid-level provider. I reviewed and agree with the findings presented. I attest that I had a [id number] encounter with the patient on the same day, and personally performed and documented my assessment and findings in the medical record. The following services were provided during this hospital visit: Chart data review, vital sign assessments/reviewing monitor data Review of consultations notes if present. Medication orders/review and/or management Ordering and/or reviewing lab tests Ordering and/or interpreting/reviewing x-rays and/or diagnostic studies Care of the patient and discussion of the patient with the care team Documentation time To help prompt me to consider important information that might be impacting today's encounter and assessment, information from prior notes written by myself or my colleagues may have been "brought forward/copy and pasted" into today's note. Problem Qualifiers (1) Coronary artery disease: (2) Acute CHF: Qualified Codes: I50.41 - Acute combined systolic (congestive) and diastolic ( congestive) heart failure Gabbi Blair Dec 01, 2016 10:53 Gaivn Vela MD Dec 02, 2016 08:58
[2016-12-01 16:00] LABS: HEMOGLOBIN A1b 2.1 %; HEMOGLOBIN Ao 83.7 %; HEMOGLOBIN LA1C 2.3 %
--- NOTE | 2016-12-01 16:38 | PD.CARD.PN ---
Subjective Subjective Remarks No events overnight Oxygenation much better No chest pain/SOB, laying mostly flat Objective Medications Current Medications Medications (Trade) Dose Ordered Sig/Dave Route Start Time Stop Time Status Last Admin (NS Flush) 2 ml UNSCH PRN IV FLUSH 11/24/16 03:15 11/29/16 08:00 (NS Flush) 2 ml BID IV FLUSH 11/24/16 09:00 12/01/16 08:53 (Zofran Inj) 4 mg Q6H PRN IVP 11/24/16 03:15 11/24/16 11:59 (Narcan Inj) 0.4 mg UNSCH PRN IV PUSH 11/24/16 03:15 (Dilaudid Pf Inj) 1 mg Q4H PRN IV PUSH 11/24/16 12:30 12/01/16 00:43 (Flomax) 0.4 mg DAILY PO 11/24/16 20:15 12/01/16 08:50 (Dulcolax Supp) 10 mg DAILY PRN RECTAL 11/26/16 15:00 11/30/16 14:07 (Cipro) 750 mg Q12HR PO 11/27/16 09:00 12/01/16 08:50 (Flagyl) 500 mg Q6HR PO 11/27/16 12:00 12/01/16 12:18 ([place] 5-325 Mg) 1 tab Q6H PRN PO 11/27/16 07:45 ([place] 5-325 Mg) 2 tab Q6H PRN PO 11/27/16 07:45 12/01/16 10:50 (Vasotec Inj) 1.25 mg Q6H PRN IV PUSH 11/28/16 10:00 (Prinivil) 10 mg DAILY PO 11/28/16 10:00 Future hold 12/01/16 08:50 (Nitrostat Sl) 0.4 mg Q5M PRN SL 11/28/16 10:15 (Aspirin Chew) 81 mg DAILY CHEW 11/29/16 09:00 12/01/16 08:51 (Tums Chew) 500 mg QID PRN PO 11/28/16 13:45 Miscellaneous Information 1 Q361D XX 11/28/16 16:45 11/28/16 16:45 (Chlorhexidine 2% Cloth) 3 pack Taper DAILY@04 TOP 11/29/16 04:00 11/25/17 03:59 12/01/16 00:00 (Chlorhexidine 2% Cloth) 3 pack UNSCH PRN TOP 11/28/16 16:45 Potassium Chloride 100 ml @ 50 mls/hr Q2H PRN IV 11/28/16 17:00 Potassium Chloride 100 ml @ 50 mls/hr Q2H PRN IV 11/28/16 17:00 11/30/16 10:37 (K-Lyte Cl Eff) 50 meq UNSCH PRN PO 11/28/16 17:00 11/30/16 23:22 Potassium Chloride 100 ml @ 25 mls/hr UNSCH PRN IV 11/28/16 17:00 Potassium Chloride 100 ml @ 50 mls/hr Q2H PRN IV 11/28/16 17:00 11/29/16 08:01 Magnesium Sulfate 4 gm/Sodium Chloride 100 ml @ 50 mls/hr UNSCH PRN IV 11/28/16 17:00 (Mag-Ox) 800 mg UNSCH PRN PO 11/28/16 17:00 Magnesium Sulfate 2 gm/Sodium Chloride 100 ml @ 50 mls/hr UNSCH PRN IV 11/28/16 17:00 (K-Phos) 2,000 mg Q4H PRN PO 11/28/16 17:00 12/01/16 12:45 Sodium Phosphate 30 mmol/Sodium Chloride 250 ml @ 42 mls/hr UNSCH PRN IV 11/28/16 17:00 (K-Phos) 2,000 mg UNSCH PRN PO/TUBE 11/28/16 17:00 Potassium Phosphate 30 mmol/ Sodium Chloride 260 ml @ 42 mls/hr UNSCH PRN IV 11/28/16 17:00 (Albuterol Neb) 2.5 mg Q6HR NEB INH 11/29/16 08:30 12/01/16 09:27 (Coreg) 3.125 mg Q12HR PO 11/29/16 21:00 12/01/16 08:50 (Habitrol 14 Mg Patch.24 Hr) 1 patch DAILY@2100 TOPICAL 11/29/16 21:00 Future Hold Miscellaneous Information 1 DAILY@2099 T-DERMAL 11/29/16 21:00 (Lipitor) 80 mg HS PO 11/30/16 21:00 11/30/16 20:15 (Plavix) 75 mg DAILY PO 12/02/16 09:00 (Eliquis) 5 mg BID PO 11/30/16 21:00 12/01/16 08:50 Vital Signs / I&O Vital Signs Date Time Temp Pulse Resp B/P (MAP) Pulse Ox O2 Delivery O2 Flow Rate FiO2 12/01/16 15:00 84 26 90 12/01/16 14:00 92 54 94 12/01/16 13:00 89 20 92 12/01/16 12:00 99.3 88 21 111/60 (77) 95 12/01/16 10:00 87 25 92 12/01/16 09:27 95 Nasal Cannula 3.00 12/01/16 09:00 91 30 94 12/01/16 08:00 98.2 77 22 116/67 (83) 95 12/01/16 08:00 Nasal Cannula 2.00 12/01/16 04:00 87 12/01/16 04:00 98.3 87 20 129/75 (93) 95 12/01/16 00:00 89 12/01/16 00:00 98.5 89 20 145/88 (107) 96 11/30/16 22:00 94 11/30/16 20:49 96 Nasal Cannula 3.00 11/30/16 20:00 98 11/30/16 20:00 98.7 98 20 119/77 (91) 95 11/30/16 20:00 Nasal Cannula 2.00 11/30/16 18:00 98 11/30/16 17:05 16 I/O 11/30/16 11/30/16 11/30/16 12/01/16 12/01/16 12/01/16 06:59 14:59 22:59 06:59 14:59 22:59 Intake Total 240 ml 200 ml 1419 ml 480 ml 400 ml Output Total 550 ml 975 ml 400 ml 600 ml Balance -310 ml 200 ml 444 ml 80 ml -200 ml Intake Oral 240 ml 1419 ml 480 ml 400 ml IV Total 200 ml Output Urine Total 550 ml 975 ml 400 ml 600 ml # Bowel Movements 1 1 1 Physical Exam GENERAL: NAD, AAOx3 SKIN: Warm and dry. HEAD: Atraumatic. Normocephalic. EYES: Pupils equal and round. No scleral icterus. No injection or drainage. ENT: No nasal bleeding or discharge. Mucous membranes pink and moist. NECK: Trachea midline. No JVD. CARDIOVASCULAR: Regular rate and rhythm. RESPIRATORY: No accessory muscle use. Decreased breath sounds bilaterally, mild wheezing, minimal rales GASTROINTESTINAL: Abdomen soft, non-tender, nondistended. Hepatic and splenic margins not palpable. MUSCULOSKELETAL: Extremities without clubbing, cyanosis, or edema. No obvious deformities. Right femoral no hematoma/bruit, distal pulses intact NEUROLOGICAL: Awake and alert. No obvious cranial nerve deficits. Motor grossly within normal limits. Five out of 5 muscle strength in the arms and legs. Normal speech. PSYCHIATRIC: Appropriate mood and affect; insight and judgment normal. Laboratory Laboratory Tests Test 11/30/16 19:45 12/01/16 04:46 Potassium Level 3.5 MEQ/L 4.1 MEQ/L White Blood Count 11.8 TH/MM3 Red Blood Count 3.81 MIL/MM3 Hemoglobin 12.4 GM/DL Hematocrit 35.8 % Mean Corpuscular Volume 94.0 FL Mean Corpuscular Hemoglobin 32.6 PG Mean Corpuscular Hemoglobin Concent 34.7 % Red Cell Distribution Width 14.1 % Platelet Count 348 TH/MM3 Mean Platelet Volume 7.7 FL Neutrophils (%) (Auto) 74.9 % Lymphocytes (%) (Auto) 12.5 % Monocytes (%) (Auto) 11.2 % Eosinophils (%) (Auto) 1.1 % Basophils (%) (Auto) 0.3 % Neutrophils # (Auto) 8.8 TH/MM3 Lymphocytes # (Auto) 1.5 TH/MM3 Monocytes # (Auto) 1.3 TH/MM3 Eosinophils # (Auto) 0.1 TH/MM3 Basophils # (Auto) 0.0 TH/MM3 CBC Comment DIFF FINAL Differential Comment Blood Urea Nitrogen 10 MG/DL Creatinine 0.68 MG/DL Random Glucose 124 MG/DL Total Protein 6.6 GM/DL Albumin 2.4 GM/DL Calcium Level 8.7 MG/DL Phosphorus Level 2.3 MG/DL Magnesium Level 2.1 MG/DL Alkaline Phosphatase 180 U/L Aspartate Amino Transf (AST/SGOT) 40 U/L Alanine Aminotransferase (ALT/SGPT) 22 U/L Total Bilirubin 0.3 MG/DL Sodium Level 132 MEQ/L Chloride Level 98 MEQ/L Carbon Dioxide Level 25.8 MEQ/L Anion Gap 8 MEQ/L Estimat Glomerular Filtration Rate 119 ML/MIN Hemoglobin A1c 6.3 % Free Thyroxine 1.08 NG/DL Thyroid Stimulating Hormone 3rd Gen 7.350 uIU/ML Assessment and Plan Problem List: (1) NSTEMI (non-ST elevated myocardial infarction) ICD Codes: I21.4 - Non-ST elevation (NSTEMI) myocardial infarction Status: Acute (2) CAD (coronary artery disease) ICD Codes: I25.10 - Atherosclerotic heart disease of [place] coronary artery without angina pectoris (3) Acute CHF ICD Codes: I50.9 - Heart failure, unspecified Status: Acute (4) Afib ICD Codes: I48.91 - Unspecified atrial fibrillation Status: Acute (5) Diverticulitis large intestine w/o perforation or abscess w/o bleeding ICD Codes: K57.32 - Diverticulitis of large intestine without perforation or abscess without bleeding Status: Acute Assessment and Plan 1) CAD/NSTEMI BAUTISTA to SVG to PDA ASA/Plavix Plavix for 1 year if possible due to NSTEMI Con't LOUISE-I/Coreg/Lipitor 2) Acute CHF Secondary to ischemic lesion along with excessive fluid Diuresed well, con't to diurese 3) 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 4) Afib Controlled, now in NSR CHADSVASc = 2 (CHF, recent AR) Started on Eliquis Most likely triple therapy for 1 month then stop ASA 5) Diverticulitis Per primary Concern for timing of elective surgery Eliquis can be held for 48 hours pre-operatively Due to NSTEMI, patient should continue on ASA/Plavix for 1 year if possible without stopping If ASA stopped due to triple therapy, and Eliquis is stopped pre- operatively, patient should be placed on ASA until Eliquis can be restarted Problem Qualifiers (1) Acute CHF: Qualified Codes: I50.41 - Acute combined systolic (congestive) and diastolic ( congestive) heart failure Aftab Avila DO Dec 01, 2016 16:38
[2016-12-01] MEDS: FUROSEMIDE 20 MG/2 ML VIAL IV PUSH SCH (17:52)
[2016-12-01] MEDS: ATORVASTATIN 80 MG TAB PO SCH (21:00)
[2016-12-01] MEDS: REMOVE OLD PATCH T-DERMAL SCH (21:00)
[2016-12-02] VITALS (7 sets, daily range): BP systolic 103–113; BP diastolic 65–69; PULSE 84–94; RESP 17–20; TEMP 97–98.3; O2SAT 93–95
[2016-12-02] MEDS: metroNIDAZOLE 500 MG TAB PO SCH ×3 (00:38→12:46)
[2016-12-02] MEDS: HYDROmorphone HCL PF 1 MG/ML VIAL IV PUSH PRN (00:40)
[2016-12-02] MEDS: CHLORHEXIDINE GLUCONATE 2 % 1 PACK (2 CLOTHS) TOP SCH (04:00)
[2016-12-02] MEDS: RESP: ALBUTEROL 2.5 MG/3 ML NEB (SCH) INH ×3 (04:45→15:53)
[2016-12-02] MEDS: ACETAMINOPHEN/HYDROcodone 325 MG/5 MG TAB PO PRN ×2 (05:26→12:46)
[2016-12-02] MEDS ORDERED: CLOPIDOGREL 75 MG TAB PO SCH (09:00)
[2016-12-02] MEDS: SODIUM CHLORIDE 0.9% FLUSH 10 ML FLUSH IV FLUSH SCH (09:00)
[2016-12-02] MEDS: TAMSULOSIN HCL 0.4 MG CAP PO SCH (09:26)
[2016-12-02] MEDS: CIPROFLOXACIN 750 MG TAB PO SCH (09:26)
[2016-12-02] MEDS: CARVEDILOL 3.125 MG TAB PO SCH (09:26)
[2016-12-02] MEDS: LISINOPRIL 10 MG TAB PO SCH (09:26)
[2016-12-02] MEDS: ASPIRIN 81 MG CHEW TAB CHEW SCH (09:27)
[2016-12-02] MEDS: FUROSEMIDE 20 MG/2 ML VIAL IV PUSH SCH (09:27)
[2016-12-02] MEDS: APIXABAN 5 MG TABLET PO SCH (09:27)
--- NOTE | 2016-12-02 10:18 | HHI.PR ---
cc: Karthik Kwong MD Subjective Subjective Notes DAILY PROGRESS NOTE FOR SURGICAL ATTENDING, DR. KARTHIK KWONG Ambulating in room Tolerating diet No issues Objective Vitals/I&O Vital Signs Date Time Temp Pulse Resp B/P (MAP) Pulse Ox O2 Delivery O2 Flow Rate FiO2 12/02/16 08:00 98.3 84 20 113/68 (09) 95 12/01/16 20:53 21 12/01/16 09:27 Nasal Cannula 3.00 Labs Laboratory Tests Test 11/24/16 01:27 11/24/16 01:50 11/24/16 07:11 11/28/16 14:25 Red Cell Morphology Comment NORMAL Urine Color YELLOW Urine Turbidity CLEAR Urine pH 6.5 Urine Specific [place] 1.018 Urine Protein 30 mg/dL Urine Glucose (UA) NEG mg/dL Urine Ketones NEG mg/dL Urine Occult Blood MOD Urine Nitrite NEG Urine Bilirubin NEG Urine Leukocyte Esterase NEG Urine RBC 10-14 /hpf Urine WBC 0-2 /hpf Urine Squamous Epithelial Cells 0-5 /hpf Urine Amorphous Sediment SMALL Urine Mucus FEW /lpf Microscopic Urinalysis Comment CULT NOT INDICATED Differential Total Cells Counted 100 Neutrophils % (Manual) 73 % Lymphocytes % 20 % Monocytes % 7 % Neutrophils # (Manual) 9.6 TH/MM3 Platelet Estimate NORMAL Platelet Morphology Comment NORMAL Prothrombin Time 10.6 SEC Prothromb Time International Ratio 1.0 RATIO Test 11/28/16 16:14 11/28/16 23:29 11/29/16 03:34 12/01/16 04:46 Nasal Screen MRSA (PCR) MRSA NOT DETECTED Total Creatine Kinase 968 U/L Creatine Kinase MB 91.1 NG/ML Creatine Kinase MB % 9.4 % Triglycerides Level 152 MG/DL Cholesterol Level 190 MG/DL LDL Cholesterol 130 MG/DL HDL Cholesterol 29.2 MG/DL Cholesterol/HDL Ratio 6.50 RATIO Lipase 205 U/L Activated Partial Thromboplast Time 35.3 SEC Lactic Acid Level 0.8 mmol/L Troponin I 28.70 NG/ML Neutrophils (%) (Auto) 74.9 % Lymphocytes (%) (Auto) 12.5 % Monocytes (%) (Auto) 11.2 % Eosinophils (%) (Auto) 1.1 % Basophils (%) (Auto) 0.3 % Neutrophils # (Auto) 8.8 TH/MM3 Lymphocytes # (Auto) 1.5 TH/MM3 Monocytes # (Auto) 1.3 TH/MM3 Eosinophils # (Auto) 0.1 TH/MM3 Basophils # (Auto) 0.0 TH/MM3 CBC Comment DIFF FINAL Differential Comment Hemoglobin A1c 6.3 % Blood Urea Nitrogen 10 MG/DL Creatinine 0.68 MG/DL Random Glucose 124 MG/DL Total Protein 6.6 GM/DL Albumin 2.4 GM/DL Calcium Level 8.7 MG/DL Phosphorus Level 2.3 MG/DL Magnesium Level 2.1 MG/DL Alkaline Phosphatase 180 U/L Aspartate Amino Transf (AST/SGOT) 40 U/L Alanine Aminotransferase (ALT/SGPT) 22 U/L Total Bilirubin 0.3 MG/DL Sodium Level 132 MEQ/L Potassium Level 4.1 MEQ/L Chloride Level 98 MEQ/L Carbon Dioxide Level 25.8 MEQ/L Free Thyroxine 1.08 NG/DL Thyroid Stimulating Hormone 3rd Gen 7.350 uIU/ML Test 12/02/16 09:03 White Blood Count 10.7 TH/MM3 Red Blood Count 3.96 MIL/MM3 Hemoglobin 13.1 GM/DL Hematocrit 37.4 % Mean Corpuscular Volume 94.5 FL Mean Corpuscular Hemoglobin 33.1 PG Mean Corpuscular Hemoglobin Concent 35.1 % Red Cell Distribution Width 14.3 % Platelet Count 417 TH/MM3 Mean Platelet Volume 7.2 FL Blood Urea Nitrogen 12 MG/DL Creatinine 0.77 MG/DL Random Glucose 126 MG/DL Calcium Level 8.8 MG/DL Phosphorus Level 3.3 MG/DL Magnesium Level 2.1 MG/DL Sodium Level 133 MEQ/L Potassium Level 3.5 MEQ/L Chloride Level 98 MEQ/L Carbon Dioxide Level 25.2 MEQ/L Anion Gap 10 MEQ/L Estimat Glomerular Filtration Rate 103 ML/MIN Cardiovascular: Regular Lungs: Clear Abdomen: Other (minimal tenderness in LLQ ) Extremities: No edema A/P Problem List: (1) Left lower quadrant pain ICD Codes: R10.32 - Left lower quadrant pain Status: Acute (2) Diverticulitis large intestine w/o perforation or abscess w/o bleeding ICD Codes: K57.32 - Diverticulitis of large intestine without perforation or abscess without bleeding Status: Acute (3) Diverticulitis ICD Codes: K57.92 - Diverticulitis of intestine, part unspecified, without perforation or abscess without bleeding Status: Acute (4) Coronary artery disease ICD Codes: I25.10 - Atherosclerotic heart disease of [place] coronary artery without angina pectoris Status: Chronic (5) History of sternectomy ICD Codes: Z98.890 - Other specified postprocedural states Status: Chronic (6) Abnormal CT of the abdomen ICD Codes: R93.5 - Abnormal findings on diagnostic imaging of other abdominal regions, including retroperitoneum Status: Acute (7) Elevated white blood cell count ICD Codes: D72.829 - Elevated white blood cell count, unspecified Status: Acute (8) Emphysematous cystitis ICD Codes: N30.80 - Other cystitis without hematuria Status: Acute (9) Diverticulitis of small intestine with complication ICD Codes: K57.12 - Diverticulitis of small intestine without perforation or abscess without bleeding Status: Acute (10) Acute CHF ICD Codes: I50.9 - Heart failure, unspecified Status: Acute (11) NSTEMI (non-ST elevated myocardial infarction) ICD Codes: I21.4 - Non-ST elevation (NSTEMI) myocardial infarction Status: Acute (12) Afib ICD Codes: I48.91 - Unspecified atrial fibrillation Status: Acute (13) CAD (coronary artery disease) ICD Codes: I25.10 - Atherosclerotic heart disease of [place] coronary artery without angina pectoris Assessment and Plan 61 year old male with acute diverticulitis; found to have NSTEMI and transferred to [facility] for cardiac cath and stent placement -s/p cardiac stent placement -Tolerating regular diet -Continue antibiotics---on PO -Consult to GI---patient will need outpatient colonoscopy in about 4-6 weeks -Timing of elective surgery will be complicated due to need for chronic anticoagulation s/p new cardiac stent placement -GS clear for DC; please follow up in 10-14 days Attending Statement NOTE FOR SURGICAL ATTENDING, DR. KARTHIK KWONG I agree with above assessment and plan. The exam, history, and the medical decision-making described in the above note were completed with the assistance of the mid-level provider. I reviewed and agree with the findings presented. I attest that I had a [id number] encounter with the patient on the same day, and personally performed and documented my assessment and findings in the medical record. The following services were provided during this hospital visit: Chart data review, vital sign assessments/reviewing monitor data Review of consultations notes if present. Medication orders/review and/or management Ordering and/or reviewing lab tests Ordering and/or interpreting/reviewing x-rays and/or diagnostic studies Care of the patient and discussion of the patient with the care team Documentation time To help prompt me to consider important information that might be impacting today's encounter and assessment, information from prior notes written by myself or my colleagues may have been "brought forward/copy and pasted" into today's note. Problem Qualifiers (1) Coronary artery disease: (2) Acute CHF: Qualified Codes: I50.41 - Acute combined systolic (congestive) and diastolic ( congestive) heart failure Gabbi Blair Dec 02, 2016 10:18 Karthik Kwong MD Dec 02, 2016 21:04
[2016-12-02 10:49] LABS: HEMATOCRIT 37.4 % (39.0-51.0); MEAN CELL VOLUME 94.5 FL (80.0-100.0); MEAN CORPUSCULAR HEMOGLOBIN 33.1 PG (27.0-34.0); MEAN CORPUSCULAR HGB CONC 35.1 % (32.0-36.0); PLATELET COUNT 417 TH/MM3 (150-450); RED BLOOD COUNT 3.96 MIL/MM3 (4.50-5.90); RED CELL DISTRIBUTION WIDTH 14.3 % (11.6-17.2); REVIEW FLAG FINAL; WHITE BLOOD COUNT 10.7 TH/MM3 (4.0-11.0)
[2016-12-02] MEDS ORDERED: LACTTAB8 PO (11:11)
[2016-12-02] MEDS ORDERED: ASPI81CH25 CHEW (11:11)
[2016-12-02] MEDS ORDERED: DOCU100C PO (11:11)
[2016-12-02] MEDS ORDERED: CARV3.125 PO (11:11)
[2016-12-02] MEDS ORDERED: METR-1 PO (11:11)
[2016-12-02] MEDS ORDERED: PLAV75TA29 PO (11:11)
[2016-12-02] MEDS ORDERED: APIX5TAB PO (11:11)
[2016-12-02] MEDS ORDERED: CIPR750T2 PO (11:11)
[2016-12-02] MEDS ORDERED: HYDR-3516 PO (11:11)
[2016-12-02] MEDS ORDERED: ATOR1TAB18 PO (11:11)
[2016-12-02] MEDS ORDERED: LISI10TA3 PO (11:11)
[2016-12-02 11:12] LABS: BICARBONATE 25.2 MEQ/L (21.0-32.0); MAGNESIUM 2.1 MG/DL (1.5-2.5); POTASSIUM 3.5 MEQ/L (3.5-5.1)
--- NOTE | 2016-12-02 12:00 | HHI.DS ---
Discharge Summary Admission Date Nov 24, 2016 at 03:14 Discharge Date: Dec 02, 2016 Admitting Diagnosis diverticulitis with abscess formation (1) Diverticulitis large intestine w/o perforation or abscess w/o bleeding ICD Code: K57.32 - Diverticulitis of large intestine without perforation or abscess without bleeding Status: Acute (2) Diverticulitis of small intestine with complication ICD Code: K57.12 - Diverticulitis of small intestine without perforation or abscess without bleeding Status: Acute (3) Diverticulitis ICD Code: K57.92 - Diverticulitis of intestine, part unspecified, without perforation or abscess without bleeding Status: Acute Procedures 11/29-cardiac catheterization with stent placement Brief History - From Admission Mr. Crandall is a 61-year-old male. He's had a graduating left lower abdominal pain with symptoms of decreased appetite. She's had diverticulitis in the past. He reports he has been hospitalized for diverticulitis in the past. Imaging of the abdomen at time of admission reveals severe diverticulitis with evidence of abscess. 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 Urology and surgery have been consulted by the overnight admitting physician. Patient's primary complaint is pain. Currently he is being treated with IV morphine and this is not relieving much of this pain. At baseline he has coronary artery disease hyperlipidemia and a history of CABG. No other reported past medical history. He meets sepsis criteria when I see him today. No other complaints today. CBC/BMP: 12/02/16 0903 12/02/16 0903 Significant Findings Laboratory Tests Test 11/30/16 03:35 11/30/16 19:45 12/01/16 04:46 12/02/16 09:03 White Blood Count 11.9 TH/MM3 (4.0-11.0) 11.8 TH/MM3 (4.0-11.0) Red Blood Count 3.91 MIL/MM3 (4.50-5.90) 3.81 MIL/MM3 (4.50-5.90) 3.96 MIL/MM3 (4.50-5.90) Hemoglobin 12.6 GM/DL (13.0-17.0) 12.4 GM/DL (13.0-17.0) Hematocrit 36.8 % (39.0-51.0) 35.8 % (39.0-51.0) 37.4 % (39.0-51.0) Neutrophils (%) (Auto) 80.3 % (16.0-70.0) 74.9 % (16.0-70.0) Lymphocytes (%) (Auto) 8.0 % (9.0-44.0) Monocytes (%) (Auto) 11.2 % (0.0-8.0) 11.2 % (0.0-8.0) Neutrophils # (Auto) 9.5 TH/MM3 (1.8-7.7) 8.8 TH/MM3 (1.8-7.7) Lymphocytes # (Auto) 0.9 TH/MM3 (1.0-4.8) Monocytes # (Auto) 1.3 TH/MM3 (0-0.9) 1.3 TH/MM3 (0-0.9) Random Glucose 125 MG/DL (74-106) 124 MG/DL (74-106) 126 MG/DL (74-106) Albumin 2.4 GM/DL (3.4-5.0) 2.4 GM/DL (3.4-5.0) Calcium Level 8.3 MG/DL (8.5-10.1) Alkaline Phosphatase 195 U/L (45-117) 180 U/L (45-117) Aspartate Amino Transf (AST/SGOT) 84 U/L (15-37) 40 U/L (15-37) Sodium Level 134 MEQ/L (136-145) 132 MEQ/L (136-145) 133 MEQ/L (136-145) Potassium Level 3.3 MEQ/L (3.5-5.1) Phosphorus Level 2.3 MG/DL (2.5-4.9) Hemoglobin A1c 6.3 % (4.3-6.0) Thyroid Stimulating Hormone 3rd Gen 7.350 uIU/ML (0.358-3.740) PE at Discharge - GENERAL: This is a well-nourished, well-developed patient, in no apparent distress. SKIN: No rashes, warm and dry HEAD: Atraumatic. Normocephalic. EYES: Pupils equal round and reactive. Extraocular motions intact. No scleral icterus. ENT: Nose without bleeding, or drainage, Airway patent. NECK: Trachea midline. Supple CARDIOVASCULAR: Regular rate and rhythm without murmurs, gallops, or rubs. RESPIRATORY: Fair air entry bilaterally. No wheezes, rales, or rhonchi. GASTROINTESTINAL: Abdomen soft, mild mid abdomen tenderness, nondistended. Positive bowel sounds MUSCULOSKELETAL: Extremities without clubbing, cyanosis, or edema. Pedal pulses appreciated NEUROLOGICAL: Awake and alert. Moves all extremity. Normal speech.no focal neurological deficit Hospital Course Mr. Crandall is a 61-year-old male she was admitted secondary to acute diverticulitis with perforation. The situation was determined not to be surgical and he was treated conservatively with antibiotics. No focal abscess was present so interventional radiology was not performed. He has been improving clinically and that regard. However, he had chest symptoms and was found to have an STEMI 3 days ago. He underwent heart catheter and had stent placement. She has a history of coronary artery disease previous to this. He' s been feeling well ever since. No arrhythmias. No further chest pain. Anticoagulation and cardiac treatments have been put into place. She has been cleared by surgery for discharge and outpatient follow-up. At some point she may have a partial colectomy regarding his diverticulitis. Prior to this he will undergo a colonoscopy in about 4-6 weeks as an outpatient. Outpatient follow-up with cardiology also recommended. Medically stable for discharge home today. Pt Condition on Discharge: Stable Discharge Disposition: Discharge Home Discharge Time: > 30 minutes Discharge Instructions DIET: Follow Instructions for: As Tolerated, No Restrictions Activities you can perform: Regular-No Restrictions Follow up Referrals: Cardiology - 2 Weeks with [facility] - 4 Weeks with Jimmy Taylor MD PCP Follow-up - 1 Week Surgical - 10 Days with Gavin Vela MD New Medications: Docusate Sodium (Docusate Sodium) 100 Mg Cap 100 MG PO BID PRN for CONSTIPATION, #60 CAP 0 Refills Lactobacillus Acidophilus (Lactobacillus Acidophilus) 1 Billion Cell Tab 1 TAB PO TIDAC for Nutritional Supplement, #30 TAB 0 Refills Apixaban (Eliquis) 5 Mg Tab 5 MG PO BID for Blood Clot Prevention, #60 TAB Aspirin (Aspirin Low Strength) 81 Mg Chew 81 MG CHEW DAILY for Blood Clot Prevention, #30 EA Atorvastatin (Atorvastatin) 80 Mg Tab 80 MG PO HS for Hyperlipidemia, #30 TAB Carvedilol (Coreg) 3.125 Mg Tab 3.125 MG PO Q12HR for CAD, #60 TAB Ciprofloxacin (Ciprofloxacin) 750 Mg Tab 750 MG PO Q12HR for Infection, #20 TAB Clopidogrel (Plavix) 75 Mg Tab 75 MG PO DAILY for Blood Clot Prevention, #30 TAB Hydrocodone-Acetaminophen (Hydrocodone-Acetaminophen) 5-325 mg Tab 1 TAB PO Q6H PRN for Pain, #30 TAB Lisinopril (Lisinopril) 10 Mg Tab 10 MG PO DAILY for Blood Pressure Management, #30 TAB Metronidazole (Flagyl) 500 Mg Tab 500 MG PO TID for Infection, #30 TAB Abdirahman Nina MD Dec 02, 2016 12:00
--- NOTE | 2016-12-02 13:50 | PD.CONS ---
HPI History of Present Illness This is a 61 year old male with a history of diverticulitis who presented to the emergency room for evaluation of a two-week history of lower abdominal and left lower quadrant abdominal pain. He states that this is a constant sharp pain with radiation to the left side. He has associated nausea without vomiting and intermittent diarrhea with this. He has not had any rectal bleeding. He denies any fevers or chills. She states that his began suddenly after eating extra crispy saravia symptoms are aggravated by by mouth intake. He does have adequate pain relief with the pain medicines he is receiving here in the hospital. CT scan of the abdomen and pelvis with IV contrast (11/24/16) revealed prominent sigmoid diverticulitis with locally contained perforation, multiple small collections of extraluminal air in concomitant emphysematous cystitis. He was started on antibiotics and evaluated by general surgery. GI has been consulted for further evaluation with an outpatient colonoscopy in 4-6 weeks. The patient reports that he is on several episodes of diverticulitis in the past. He had a severe episode about a year ago in [place], where he had to be on antibiotics for about 3 weeks and continued to have abdominal pain for several weeks after was treated. He states that he is feeling much better and the plan is for him to go home today and follow up with general surgery and GI as outpatient. Of note while he was here he had an non-ST elevation NM and underwent a cardiac catheterization on 11/29/16 with a drug-eluting stent to the SVG to the PDA and was placed on Plavix/ASA for 1 year if possible. He was also started on Eliquis for atrial fibrillation. Cardiology has recommended that patient should continue aspirin and Plavix for 1 year for possible without stopping. If aspirin is stopped due to triple therapy and liquids. Preoperatively, patient should be placed on aspirin until L liquids can be restarted. (Nicol Beck) PFSH Past Medical History CAD Hyperlipidemia Diverticulitis Past Surgical History CABG Appendectomy (Nicol Beck) Coded Allergies: ipratropium (Unverified Allergy, Severe, Anaphylaxis, 11/24/16) peanut (Verified Allergy, Severe, 11/29/16) protein hydrolysate (Unverified Allergy, Severe, Anaphylaxis, 11/24/16) Medications Allergies Coded Allergies Type Severity Reaction Last Updated Verified ipratropium Allergy Severe Anaphylaxis 11/24/16 No peanut Allergy Severe 11/29/16 Yes protein hydrolysate Allergy Severe Anaphylaxis 11/24/16 No Active Scripts Medications Dose Route/Sig Max Daily Dose Days Date Category Lactobacillus Acidophilus 1 Billion Cell Tab 1 Tab PO TIDAC 12/02/16 Rx Docusate Sodium 100 Mg Cap 100 Mg PO BID PRN 12/02/16 Rx Hydrocodone-Acetaminophen 5-325 mg Tab 1 Tab PO Q6H PRN 12/02/16 Rx Lisinopril 10 Mg Tab 10 Mg PO DAILY 12/02/16 Rx Coreg (Carvedilol) 3.125 Mg Tab 3.125 Mg PO Q12HR 12/02/16 Rx Aspirin Low Strength (Aspirin) 81 Mg Chew 81 Mg CHEW DAILY 12/02/16 Rx Atorvastatin (Atorvastatin Calcium) 80 Mg Tab 80 Mg PO HS 12/02/16 Rx Plavix (Clopidogrel Bisulfate) 75 Mg Tab 75 Mg PO DAILY 12/02/16 Rx Eliquis (Apixaban) 5 Mg Tab 5 Mg PO BID 12/02/16 Rx Flagyl (Metronidazole) 500 Mg Tab 500 Mg PO TID 12/02/16 Rx Ciprofloxacin (Ciprofloxacin HCl) 750 Mg Tab 750 Mg PO Q12HR 12/02/16 Rx Family History Hyperlipidemia, CAD, DM in mother/father DM in Maternal Grandmother Social History Smoking 1.5 ppd, quit 10 days ago No alcohol abuse No illicit drug abuse (Niocl Beck) Review of Systems Constitutional: DENIES: Fatigue, Fever, Chills Cardiovascular: DENIES: Chest pain Gastrointestinal: COMPLAINS OF: Abdominal pain, Diarrhea, Nausea, DENIES: Black stools, Constipation, Vomiting, Swelling of Abdomen, Heartburn, Hematemesis Integumentary: DENIES: Abnormal pigmentation Hematologic/lymphatic: DENIES: Bruising Neurologic: DENIES: Headache Psychiatric: DENIES: Confusion (Nicol Beck) GI Exam Vitals I&O Vital Signs Date Time Temp Pulse Resp B/P (MAP) Pulse Ox O2 Delivery O2 Flow Rate FiO2 12/02/16 12:49 97.5 90 20 113/66 (82) 93 12/02/16 11:30 89 12/02/16 10:05 93 12/02/16 08:00 98.3 84 20 113/68 (83) 95 12/02/16 06:00 97.0 89 17 105/65 (78) 94 12/02/16 00:00 98.3 94 17 103/69 (80) 94 12/01/16 20:53 92 21 12/01/16 20:45 97.8 98 17 100/64 (76) 93 12/01/16 17:39 97.5 88 20 120/59 (79) 96 12/01/16 15:00 84 26 90 12/01/16 14:00 92 54 94 I/O 12/01/16 12/01/16 12/01/16 12/02/16 12/02/16 12/02/16 06:59 14:59 22:59 06:59 14:59 22:59 Intake Total 480 ml 1200 ml 950 ml Output Total 400 ml 600 ml Balance 80 ml 600 ml 950 ml Intake Oral 480 ml 1200 ml 950 ml Output Urine Total 400 ml 600 ml # Voids 1 2 # Bowel Movements 1 1 0 Imaging Last Impressions Chest X-Ray 11/29/16 0000 Signed Impressions: Service Date/Time: Tuesday, November 29, 2016 08:56 - CONCLUSION: No significant change in the nonspecific infiltrate in the right middle lobe. If the infiltrate does not resolve after appropriate medical therapy, recommend a noncontrast CT thorax for further evaluation. Primitivo Toribio MD Abdomen/Pelvis CT 11/24/16 0122 Signed Impressions: Service Date/Time: Thursday, November 24, 2016 02:09 - CONCLUSION: Prominent sigmoid diverticulitis with locally contained perforation, multiple small collections of extraluminal air and concomitant emphysematous cystitis Venancio Turner MD Laboratory Test 12/02/16 09:03 White Blood Count 10.7 TH/MM3 Red Blood Count 3.96 MIL/MM3 Hemoglobin 13.1 GM/DL Hematocrit 37.4 % Mean Corpuscular Volume 94.5 FL Mean Corpuscular Hemoglobin 33.1 PG Mean Corpuscular Hemoglobin Concent 35.1 % Red Cell Distribution Width 14.3 % Platelet Count 417 TH/MM3 Mean Platelet Volume 7.2 FL Blood Urea Nitrogen 12 MG/DL Creatinine 0.77 MG/DL Random Glucose 126 MG/DL Calcium Level 8.8 MG/DL Phosphorus Level 3.3 MG/DL Magnesium Level 2.1 MG/DL Sodium Level 133 MEQ/L Potassium Level 3.5 MEQ/L Chloride Level 98 MEQ/L Carbon Dioxide Level 25.2 MEQ/L Anion Gap 10 MEQ/L Estimat Glomerular Filtration Rate 103 ML/MIN Physical Examination HEENT: Normocephalic; atraumatic; no jaundice. CHEST: CTA CARDIAC: RRR ABDOMEN: Soft, nondistended, LLQ tenderness; no hepatosplenomegaly; bowel sounds are present in all four quadrants. EXTREMITIES: No clubbing, cyanosis, or edema. SKIN: Normal; no rash; no jaundice. 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 (Nicol Beck) Assessment and Plan Plan ASSESSMENT: - Acute diverticulitis with contained perforation in patient with hx of diverticulitis. CT scan of the abdomen and pelvis with IV contrast (11/24/16) revealed prominent sigmoid diverticulitis with locally contained perforation , multiple small collections of extraluminal air in concomitant emphysematous cystitis. Cipro/Flagyl. Outpatient colonoscopy in 4-6 weeks. - Leukocytosis. Improving. Afebrile - Non-ST elevation NM, with hx CAD. S/P Prior CABG. S/P Cardiac catheterization on 11/29/16 with a drug-eluting stent to the SVG to the PDA. Placed Plavix/ASA for 1 year if possible. He was also started on Eliquis for atrial fibrillation. Cardiology has recommended that patient should continue aspirin and Plavix for 1 year for possible without stopping. If aspirin is stopped due to triple therapy and liquids. Preoperatively, patient should be placed on aspirin until L liquids can be restarted. PLAN: - Low residue diet - Cont. Abx- Cipro/Flagyl - Outpatient colonoscopy in 4-6 weeks - FU STEPHANIE in 2 weeks - FU GS in 10-14 days - Okay to be discharged from GI standpoint (Nicol Beck) Physician Comments Patient seen and examined Agree with above Continue with current supportive care Monitor labs Follow-up with GI post discharge Colonoscopy in 6 weeks (Jimmy Taylor MD) Nicol Beck Dec 02, 2016 13:50 Jimmy Taylor MD Dec 02, 2016 23:15
--- NOTE | 2016-12-02 14:52 | PD.CARD.PN ---
Subjective Subjective Remarks No events overnight Oxygenation much better No chest pain/SOB, laying mostly flat, off oxygen Objective Medications Current Medications Medications (Trade) Dose Ordered Sig/Dave Route Start Time Stop Time Status Last Admin (NS Flush) 2 ml UNSCH PRN IV FLUSH 11/24/16 03:15 11/29/16 08:00 (NS Flush) 2 ml BID IV FLUSH 11/24/16 09:00 12/02/16 09:00 (Zofran Inj) 4 mg Q6H PRN IVP 11/24/16 03:15 11/24/16 11:59 (Narcan Inj) 0.4 mg UNSCH PRN IV PUSH 11/24/16 03:15 (Dilaudid Pf Inj) 1 mg Q4H PRN IV PUSH 11/24/16 12:30 12/02/16 00:40 (Flomax) 0.4 mg DAILY PO 11/24/16 20:15 12/02/16 09:26 (Dulcolax Supp) 10 mg DAILY PRN RECTAL 11/26/16 15:00 11/30/16 14:07 (Cipro) 750 mg Q12HR PO 11/27/16 09:00 12/02/16 09:26 (Flagyl) 500 mg Q6HR PO 11/27/16 12:00 12/02/16 12:46 ([place] 5-325 Mg) 1 tab Q6H PRN PO 11/27/16 07:45 12/01/16 21:06 ([place] 5-325 Mg) 2 tab Q6H PRN PO 11/27/16 07:45 12/02/16 12:46 (Vasotec Inj) 1.25 mg Q6H PRN IV PUSH 11/28/16 10:00 (Prinivil) 10 mg DAILY PO 11/28/16 10:00 Future hold 12/02/16 09:26 (Nitrostat Sl) 0.4 mg Q5M PRN SL 11/28/16 10:15 (Aspirin Chew) 81 mg DAILY CHEW 11/29/16 09:00 12/02/16 09:27 (Tums Chew) 500 mg QID PRN PO 11/28/16 13:45 Miscellaneous Information 1 Q361D XX 11/28/16 16:45 11/28/16 16:45 (Chlorhexidine 2% Cloth) 3 pack Taper DAILY@04 TOP 11/29/16 04:00 11/25/17 03:59 12/02/16 04:00 (Chlorhexidine 2% Cloth) 3 pack UNSCH PRN TOP 11/28/16 16:45 (Albuterol Neb) 2.5 mg Q6HR NEB INH 11/29/16 08:30 12/02/16 10:05 (Coreg) 3.125 mg Q12HR PO 11/29/16 21:00 12/02/16 09:26 (Habitrol 14 Mg Patch.24 Hr) 1 patch DAILY@2099 TOPICAL 11/29/16 21:00 Future Hold Miscellaneous Information 1 DAILY@2099 T-DERMAL 11/29/16 21:00 (Lipitor) 80 mg HS PO 11/30/16 21:00 12/01/16 21:00 (Plavix) 75 mg DAILY PO 12/02/16 09:00 12/02/16 09:27 (Eliquis) 5 mg BID PO 11/30/16 21:00 12/02/16 09:27 (Lasix Inj) 20 mg DAILY IV PUSH 12/01/16 16:45 12/02/16 09:27 Vital Signs / I&O Vital Signs Date Time Temp Pulse Resp B/P (MAP) Pulse Ox O2 Delivery O2 Flow Rate FiO2 12/02/16 12:49 97.5 90 20 113/66 (82) 93 12/02/16 11:30 89 12/02/16 10:05 93 12/02/16 08:00 98.3 84 20 113/68 (83) 95 12/02/16 06:00 97.0 89 17 105/65 (78) 94 12/02/16 00:00 98.3 94 17 103/69 (80) 94 12/01/16 20:53 92 21 12/01/16 20:45 97.8 98 17 100/64 (76) 93 12/01/16 17:39 97.5 88 20 120/59 (79) 96 12/01/16 15:00 84 26 90 I/O 12/01/16 12/01/16 12/01/16 12/02/16 12/02/16 12/02/16 07:00 15:00 23:00 07:00 15:00 23:00 Intake Total 480 ml 1200 ml 950 ml Output Total 400 ml 600 ml Balance 80 ml 600 ml 950 ml Intake Oral 480 ml 1200 ml 950 ml Output Urine Total 400 ml 600 ml # Voids 1 2 # Bowel Movements 1 1 0 Physical Exam GENERAL: NAD, AAOx3 SKIN: Warm and dry. HEAD: Atraumatic. Normocephalic. EYES: Pupils equal and round. No scleral icterus. No injection or drainage. ENT: No nasal bleeding or discharge. Mucous membranes pink and moist. NECK: Trachea midline. No JVD. CARDIOVASCULAR: Regular rate and rhythm. RESPIRATORY: No accessory muscle use. CTA B/L GASTROINTESTINAL: Abdomen soft, non-tender, nondistended. Hepatic and splenic margins not palpable. MUSCULOSKELETAL: Extremities without clubbing, cyanosis, or edema. No obvious deformities. Right femoral no hematoma/bruit, distal pulses intact NEUROLOGICAL: Awake and alert. No obvious cranial nerve deficits. Motor grossly within normal limits. Five out of 5 muscle strength in the arms and legs. Normal speech. PSYCHIATRIC: Appropriate mood and affect; insight and judgment normal. Laboratory Laboratory Tests Test 12/02/16 09:03 White Blood Count 10.7 TH/MM3 Red Blood Count 3.96 MIL/MM3 Hemoglobin 13.1 GM/DL Hematocrit 37.4 % Mean Corpuscular Volume 94.5 FL Mean Corpuscular Hemoglobin 33.1 PG Mean Corpuscular Hemoglobin Concent 35.1 % Red Cell Distribution Width 14.3 % Platelet Count 417 TH/MM3 Mean Platelet Volume 7.2 FL Blood Urea Nitrogen 12 MG/DL Creatinine 0.77 MG/DL Random Glucose 126 MG/DL Calcium Level 8.8 MG/DL Phosphorus Level 3.3 MG/DL Magnesium Level 2.1 MG/DL Sodium Level 133 MEQ/L Potassium Level 3.5 MEQ/L Chloride Level 98 MEQ/L Carbon Dioxide Level 25.2 MEQ/L Anion Gap 10 MEQ/L Estimat Glomerular Filtration Rate 103 ML/MIN Assessment and Plan Problem List: (1) NSTEMI (non-ST elevated myocardial infarction) ICD Codes: I21.4 - Non-ST elevation (NSTEMI) myocardial infarction Status: Acute (2) CAD (coronary artery disease) ICD Codes: I25.10 - Atherosclerotic heart disease of [place] coronary artery without angina pectoris (3) Acute CHF ICD Codes: I50.9 - Heart failure, unspecified Status: Acute (4) Afib ICD Codes: I48.91 - Unspecified atrial fibrillation Status: Acute (5) Diverticulitis large intestine w/o perforation or abscess w/o bleeding ICD Codes: K57.32 - Diverticulitis of large intestine without perforation or abscess without bleeding Status: Acute Assessment and Plan 1) CAD/NSTEMI BAUTISTA to SVG to PDA ASA/Plavix Plavix for 1 year if possible due to NSTEMI Con't LOUISE-I/Coreg/Lipitor 2) Acute CHF Secondary to ischemic lesion along with excessive fluid Diuresed well Will plan to send home on Lasix 20mg PRN for weight increase of 2lbs in 24 hours or 3lbs in 48 hours 3) 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 4) Afib Controlled, now in NSR CHADSVASc = 2 (CHF, recent MO) Started on Eliquis Most likely triple therapy for 1 month then stop ASA 5) Diverticulitis Per primary Concern for timing of elective surgery Eliquis can be held for 48 hours pre-operatively Due to NSTEMI, patient should continue on ASA/Plavix for 1 year if possible without stopping If ASA stopped due to triple therapy, and Eliquis is stopped pre- operatively, patient should be placed on ASA until Eliquis can be restarted Problem Qualifiers (1) Acute CHF: Qualified Codes: I50.41 - Acute combined systolic (congestive) and diastolic ( congestive) heart failure Aftab Avila DO Dec 02, 2016 14:52
== END 2016-12-02 15:54 | disposition home or self-care (01) | DRG 853 ==
LOC: PHED 01:02 → PHEDA 03:14 → PH3A 08:28 → HIME 11-28 16:10 → N05B 12-01 15:30
PROVIDERS: ADMIT Hospitalist; ATTEND Hospitalist
PROC: 0T9B70Z Drainage of Bladder with Drainage Device, Via Natural or Artificial Opening (ICD-10-PCS; principal; 2016-11-24)
PROC: 027034Z Dilation of Coronary Artery, One Artery with Drug-eluting Intraluminal Device, Percutaneous Approach (ICD-10-PCS; 2016-11-29)
PROC: 4A023N7 Measurement of Cardiac Sampling and Pressure, Left Heart, Percutaneous Approach (ICD-10-PCS; 2016-11-29)
PROC: B2111ZZ Fluoroscopy of Multiple Coronary Arteries using Low Osmolar Contrast (ICD-10-PCS; 2016-11-29)
PROC: B2181ZZ Fluoroscopy of Left Internal Mammary Bypass Graft using Low Osmolar Contrast (ICD-10-PCS; 2016-11-29)
PROC: B2131ZZ Fluoroscopy of Multiple Coronary Artery Bypass Grafts using Low Osmolar Contrast (ICD-10-PCS; 2016-11-29)
DX: A41.9 Sepsis, unspecified organism (principal); I21.4 Non-ST elevation (NSTEMI) myocardial infarction; I50.41 Acute combined systolic (congestive) and diastolic (congestive) heart failure; K57.20 Diverticulitis of large intestine with perforation and abscess without bleeding; K57.12 Diverticulitis of small intestine without perforation or abscess without bleeding; I25.810 Atherosclerosis of coronary artery bypass graft(s) without angina pectoris; N30.80 Other cystitis without hematuria; I48.91 Unspecified atrial fibrillation; F17.210 Nicotine dependence, cigarettes, uncomplicated; I25.10 Atherosclerotic heart disease of native coronary artery without angina pectoris; Z95.1 Presence of aortocoronary bypass graft; Z83.3 Family history of diabetes mellitus; Z82.49 Family history of ischemic heart disease and other diseases of the circulatory system; E78.00 Pure hypercholesterolemia, unspecified; R39.12 Poor urinary stream; Z80.42 Family history of malignant neoplasm of prostate; R33.9 Retention of urine, unspecified; Z95.5 Presence of coronary angioplasty implant and graft; E87.6 Hypokalemia; D64.9 Anemia, unspecified; I11.0 Hypertensive heart disease with heart failure
CPT/HCPCS: 71010; 74177; 80048; 80053; 80061; 81001; 82550; 82552; 83036; 83605; 83690; 83735; 84100; 84132; 84439; 84443; 84484; 85002; 85007; 85025; 85027; 85610; 85730; 86850; 86900; 86901; 87641; 92928; 93005; 93306; 93454; 94150; 94640; 94664; 96361; 96374; 96375; 96376; C1725; C1769; C1874; C1884; C1887; C1893; J1170; J1644; J1940; J1956; J2250; J2270; J2405; J2543; J3010; J3480; J7030; J7613; Q9967